=== PATIENT | male | born 1950 | race Caucasian/White ===

== ENCOUNTER 2019-02-15 10:36 | Inpatient (IN) | payer BC, MEDICARE ==
[~2019-02-15] VITALS: Ht 175.3 cm; Wt 97.5 kg
--- OUTSIDE RECORDS SUMMARY | 2019-02-15 10:39 | XMS REPORT | Summary of Care ---
Author Author Yaritza Ness M.A. Organization Unknown Address [facility] Phone Unavailable Care Team Providers Care Oil Tank Car Cleaner Name Role Phone BURT Espana, LOLA Clemons Unavailable Yaritza Ness M.A. Unavailable Unavailable SARAH Espana, SON Unavailable Unavailable BURT SNYDER IN, LOLA Arora Unavailable Unavailable SHER FARRIS IN, BOZENA Arora Unavailable Unavailable Son Smith MD Unavailable Unavailable Unavailable Unavailable Functional Status Name Dates Details Functional status health issues are not documented Status: Name Dates Details Cognitive status health issues are not documented Status: Problems Name Dates Details Need for hepatitis C screening test (V73.89, Z11.59) Status: Active Peripheral edema (782.3, R60.9) Status: Active Colon cancer screening (V76.51, Z12.11) Status: Active Diarrhea (787.91, R19.7) Status: Active Gastroesophageal reflux disease, esophagitis presence not specified (530.81, K21.9) Status: Active Mouth ulcers (528.9, K12.1) Status: Active Vitamin B12 deficiency (266.2, E53.8) Status: Active 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, with long-term current use of insulin (250.42, E11.29) Status: Active Diabetic neuropathy (250.60, E11.40) Status: Active Diabetes mellitus type 2, controlled (250.00, E11.9) Status: Active Essential (primary) hypertension (401.9, I10) Status: Active Hypercholesterolemia (272.0, E78.00) Status: Active Pancreatic insufficiency (577.8, K86.89) Status: Active Abdominal pain (789.00, R10.9) Status: Active Chronic diarrhea of unknown origin (787.91, K52.9) Status: Active Diabetic infection of left foot (250.80, E11.628) Status: Active Cellulitis of foot (682.7, L03.119) Status: Active Medications Name Dates Details Lisinopril 10 MG Oral Tablet TAKE 1 TABLET DAILY. Quantity: 90 LOLA DALLAS M.D. Active Pravastatin Sodium 40 MG Oral Tablet TAKE 1 TABLET BY MOUTH EVERY DAY DIRECTED * Quantity: 90 Refills: 1 LOLA DALLAS M.D. * Start : 30-Nov-2018 Active Pantoprazole Sodium 40 MG Oral Tablet Delayed Release TAKE 1 TABLET DAILY * Quantity: 90 Refills: 1 LOLA DALLAS M.D. Active Gabapentin 100 MG Oral Capsule TAKE 1 CAPSULE EVERY 8 HOURS * Quantity: 270 Refills: 1 LOLA DALLAS M.D. * Start : 10-Jun-2018 Active OneTouch Verio In Vitro Strip USE 1 STRIP 4 TIMES DAILY. * Quantity: 120 Refills: 5 LOLA DALLAS M.D. * Start : 10-Jun-2018 Active OneTouch Delica Lancets Fine 3 times daily- FOR ONE-TOUCH VERIO FLEX * Quantity: 90 Refills: 5 LOLA DALLAS M.D. * Start : 10-Jun-2018 Active hydroCHLOROthiazide 12.5 MG Oral Tablet TAKE 1 TABLET DAILY. * Quantity: 90 Refills: 1 LOLA DALLAS M.D. * Start : 30-Jul-2018 Active Januvia 100 MG Oral Tablet TAKE ONE TABLET BY MOUTH IN THE MORNING * Quantity: 30 Refills: 6 LOLA DALLAS M.D. * Start : 03-Aug-2018 Active BD Pen Needle Short U/F 31G X 8 MM USE 5 A DAY * Quantity: 150 Refills: 2 LOLA DALLAS M.D. * Start : 03-Aug-2018 Active NovoLIN N ReliOn 100 UNIT/ML Subcutaneous Suspension INJECT 40 UNITS IN THE MORNING WITH BREAKFAST AND 40 UNITS AT BEDTIME. * Quantity: 3 Refills: 6 LOLA DALLAS M.D. * Start : 23-Nov-2018 Active 10 ML Vial NovoLIN R ReliOn 100 UNIT/ML Injection Solution INJECT 12 UNITS WITH EACH MEAL. * Quantity: 2 Refills: 6 LOLA DALLAS M.D. * Start : 23-Nov-2018 Active 10 ML Vial BD Insulin Syringe U/F 30G X 1/2" 1 ML USE DIRECTED * Quantity: 150 Refills: 5 LOLA DALLAS M.D. * Start : 23-Nov-2018 Active Creon 65518 UNIT Oral Capsule Delayed Release Particles TAKE 1 CAPSULE 3 TIMES DAILY * Quantity: 90 Refills: 6 SON SMITH M.D. * Start : 28-Dec-2018 Active Colestipol HCl - 1 GM Oral Tablet TAKE 1 TABLET DAILY * Refills: 0 Active Multi-Vitamin TABS TAKE 1 TABLET DAILY. * Refills: 0 Active Clindamycin HCl - 300 MG Oral Capsule Take one capsule three time a day. * Quantity: 30 Refills: 0 LOLA DALLAS M.D. * Start : 11-Feb-2019 End : 21-Feb-2019 Active levoFLOXacin 500 MG Oral Tablet TAKE 1 TABLET DAILY * Quantity: 10 Refills: 0 LOLA DALLAS M.D. * Start : 11-Feb-2019 End : 21-Feb-2019 Active Allergies and Adverse Reactions Name Dates Details Dairy (Allergy) Status: Active Past Medical History Name Dates Details History of hyperlipidemia (V12.29, Z86.39) Status: Resolved History of Lactose intolerance (271.3, E73.9) Status: Resolved History of peripheral neuropathy (V12.49, Z86.69) Status: Resolved History of type 2 diabetes mellitus (V12.29, Z86.39) Status: Resolved Procedures Procedure Dates Details Procedures not documented Immunization Name Dates Details Zoster (Zostavax) on: May-2016 Tdap on: May-2017 Influenza, seasonal, injectable on: 09-Feb-2018 Prevnar 13 Intramuscular Suspension on: 10-Jun-2018 Shingrix 50 MCG Intramuscular Suspension Reconstituted on: 10-Jul-2018 Shingrix 50 MCG Intramuscular Suspension Reconstituted on: 09-Sep-2018 Influenza, seasonal, injectable on: 05-Feb-2019 Family History Name Dates Details Family history of cerebrovascular accident (CVA) (V17.1, Z82.3) Status: Active Name Dates Details Family history of malignant neoplasm of colon (V16.0, Z80.0) Status: Active Family history of type 2 diabetes mellitus (V18.0, Z83.3) Status: Active Family history of hyperlipidemia (V18.19, Z83.438) Status: Active Name Dates Details Family history of alcoholism (V17.0, Z81.1) Status: Active Name Dates Details Family history of lymphoma (V16.7, Z80.7) Status: Active Social History Name Dates Details - Status: Name Dates Details Never smoker Vital Signs Date Test Result Details [id number]-Nis-[id number] BP Systolic 132 mm[Hg] Status: Comments: Location: LUE; Position: Sitting BP Diastolic 64 mm[Hg] Status: Comments: Location: LUE; Position: Sitting Height 69 in Status: Weight 216.8 lb Status: Body Mass Index Calculated 32.02 kg/m2 Status: Body Surface Area Calculated 2.14 m2 Status: Temperature 98.5 f Status: Comments: Method: Oral Heart Rate 76 /min Status: Respiration Rate 16 /min Status: Results Date Description Value Details 9-Nyx-467554:27 XRAY Foot AP lateral 01739 Foot AP lateral SEE NOTES Comments: EXAM: XR LEFT FOOT 2 VIEWSDATE: 02/11/2019 15:27 CDTINDICATION: - L03.119 Cellulitis of unspecified part of limbCOMPARISON: None.TECHNIQUE: AP and lateral radiographs of the footFINDINGS: No acute fracture or malalignment is identified. There is noperiosteal reaction, focal erosion or cortical destruction to indicate thepresence of acute osteomyelitis.Diffuse soft tissue swelling about the fore and midfoot.IMPRESSION: Diffuse soft tissue swelling about the foreign midfoot with noradiographic evidence of acute osteomyelitis. MRI is more sensitive in thisdiagnosis if indicated.--This report was dictated by a Senior Product Development Scientist/Fellow/Physician [employer] Admin. Ihave personallyreviewed the images as well as the interpretation and agree with the findings.Read by: Magan Contreras MD Resident/Fellow/PhysicianAssistant: Magan Contreras MDDictated Date/time: 02/11/19 15:53Electronically Signed by: Chadwick Kendrick MD 02/11/1919:18FINAL REPORT 8-[id number]:05 [[facility]] BASIC METABOLIC PANEL W/EGFR GLUCOSE 131 mg/dl (Normal) Range: 65-139 Comments: Non-fasting reference interval UREA NITROGEN (BUN) 34 mg/dl (Above high threshold) Range: 7-25 CREATININE 1.94 mg/dl (Above high threshold) Range: 0.70-1.25 Comments: For patients >49 years of age, the reference limitfor Creatinine is approximately 13% higher for peopleidentified as -Panamanian. eGFR NON- 35 {ML/MIN/1.7} (Below low threshold) Range: > OR=60 eGFR 40 {ML/MIN/1.7} (Below low threshold) Range: > OR=60 BUN/CREATININE RATIO 18 {CALC} (Normal) Range: 6-22 SODIUM 137 mmol/L (Normal) Range: 135-146 POTASSIUM 4.7 mmol/L (Normal) Range: 3.5-5.3 CHLORIDE 103 mmol/L (Normal) Range: 98-110 CARBON DIOXIDE 25 mmol/L (Normal) Range: 20-32 CALCIUM 8.9 mg/dl (Normal) Range: 8.6-10.3 8-[id number]:05 [[facility]] CBC (INCLUDES DIFF/PLT) Comments: REPORT COMMENT:FASTING:NO WHITE BLOOD CELL COUNT 11.6 {Thousand/u} (Above high threshold) Range: 3.8-10.8 RED BLOOD CELL COUNT 3.31 {Million/uL} (Below low threshold) Range: 4.20-5.80 HEMAGLOBIN 9.8 g/dl (Below low threshold) Range: 13.2-17.1 HEMATOCRIT 28.4 % (Below low threshold) Range: 38.5-50.0 MCV 85.8 fL (Normal) Range: 80.0-100.0 MCH 29.6 pg (Normal) Range: 27.0-33.0 MCHC 34.5 g/dl (Normal) Range: 32.0-36.0 RDW 12.7 % (Normal) Range: 11.0-15.0 PLATELET COUNT 335 {Thousand/u} (Normal) Range: 140-400 MPV 10.1 fL (Normal) Range: 7.5-12.5 ABSOLUTE NEUTROPHILS 8155 {cells/uL} (Above high threshold) Range: 3224-5826 ABSOLUTE LYMPHOCYTES 2216 {cells/uL} (Normal) Range: 850-3900 ABSOLUTE MONOCYTES 1056 {cells/uL} (Above high threshold) Range: 200-950 ABSOLUTE EOSINOPHILS 116 {cells/uL} (Normal) Range: 15-500 ABSOLUTE BASOPHILS 58 {cells/uL} (Normal) Range: 0-200 NEUTROPHILS 70.3 % (Normal) LYMPHOCYTES 19.1 % (Normal) MONOCYTES 9.1 % (Normal) EOSINOPHILS 1.0 % (Normal) BASOPHILS 0.5 % (Normal) Plan of Care Name Dates Details Planned Observations Planned Goals not documented Planned Encounters Appointment; LOLA DALLAS M.D. On: 19-Feb-2019 13:15 Appointment; SON SMITH M.D. On: 02-Mar-2019 16:15 Appointment; LOLA DALLAS M.D. On: 05-Mar-2019 9:30 Instructions Name Dates Details Instructions not documented Encounters Appointment; LOLA DALLAS M.D. Encounter Diagnosis: Problem not documented On: 10-Jun-2018 9:30 Appointment; LOLA DALLAS M.D. Encounter Diagnosis: Problem not documented On: 30-Jul-2018 11:00 Appointment; LOLA DALLAS M.D. Encounter Diagnosis: Problem not documented On: 03-Aug-2018 10:30 Appointment; LOLA DALLAS M.D. Encounter Diagnosis: Problem not documented On: 17-Aug-2018 14:30 Appointment; BOZENA OLIVAREZ RD Encounter Diagnosis: Problem not documented On: 24-Aug-2018 13:00 Appointment; LOLA DALLAS M.D. Encounter Diagnosis: Problem not documented On: 01-Sep-2018 10:30 Appointment; SON SMITH M.D. Encounter Diagnosis: Problem not documented On: 15-Sep-2018 15:00 Appointment; SON SMITH M.D. Encounter Diagnosis: Problem not documented On: 12-Oct-2018 14:00 Appointment; BOZENA OLIVAREZ RD Encounter Diagnosis: Problem not documented On: 19-Oct-2018 13:00 Appointment; SON SMITH M.D. Encounter Diagnosis: Problem not documented On: 16-Nov-2018 15:15 Appointment; LOLA DALLAS M.D. Encounter Diagnosis: Problem not documented On: 23-Nov-2018 14:15 Appointment; SON SMITH M.D. Encounter Diagnosis: Problem not documented On: 30-Nov-2018 10:00 Appointment; SON SMITH M.D. Encounter Diagnosis: Problem not documented On: 28-Dec-2018 10:30 Appointment; LOLA DALLAS M.D. Encounter Diagnosis: Problem not documented On: 05-Jan-2019 13:15 Appointment; LOLA DALLAS M.D. Encounter Diagnosis: Problem not documented On: 11-Feb-2019 14:00
[2019-02-15] MEDS ORDERED: SODIUM CHLORIDE 0.9% 1000ML 1,000 ML IV STA (10:44)
[2019-02-15] MEDS ORDERED: CEFEPIME 1GM/NS 0.9% 50 ML 50 ML IV ONE (11:00)
--- NOTE | 2019-02-15 11:19 | Diagnostic Imaging Report ---
EXAMINATION: CHEST SINGLE (PORTABLE) INDICATION: Cellulitis COMPARISON: None FINDINGS: LINES/TUBES:EKG leads overlie the chest. LUNGS:The lungs are well-inflated. No focal consolidation or pulmonary edema. PLEURA:No pleural effusion or pneumothorax. MEDIASTINUM:The cardiomediastinal silhouette is at the upper limits of normal for size. BONES/SOFT TISSUES:No acute osseous injury. ABDOMEN:No free air under the diaphragm. IMPRESSION: No focal pneumonia or pulmonary edema. Signed by: Hector Chan MD on 02/15/2019 11:16 AM
[2019-02-15 11:29] LABS: BASOPHILS % 0.2 % (0.0-1.0); EOSINOPHILS # (AUTO) 0.1 (0.0-0.4); EOSINOPHILS % 0.6 % (0.0-6.0); HEMATOCRIT 27.9 % (38.2-49.6); HEMOGLOBIN 9.3 g/dL (14.0-18.0); LYMPHOCYTES % 20.9 % (18.0-39.1); MEAN CORPUSCULAR HEMOGLOBIN 29.1 pg (28-32); MEAN CORPUSCULAR HGB CONC 33.3 g/dL (31-35); MEAN CORPUSCULAR VOLUME 87.2 fL (81-99); MONOCYTES # (AUTO) 0.9 (0.2-0.8); MONOCYTES % 9.2 % (4.4-11.3); NEUTROPHILS # (AUTO) 6.7 (2.1-6.9); NEUTROPHILS % 68.6 % (38.7-80.0); PLATELET COUNT 368 x10e3/uL (140-360)
[2019-02-15] MEDS ORDERED: VANCOMYCIN 1GM/NS 250 ML 250 ML IV ONE (11:30)
--- NOTE | 2019-02-15 11:32 | Diagnostic Imaging Report ---
EXAMINATION: FOOT LEFT COMPLETE INDICATION: Cellulitis COMPARISON: None FINDINGS: AP, lateral and oblique radiographs of the left foot were obtained. No acute fracture or dislocation. Alignment is anatomic. There is a 8 mm linear radiopaque structure in the plantar soft tissues of the forefoot concerning for possible foreign body. There is associated mild soft tissue swelling. IMPRESSION: No acute osseous injury. 8 mm linear radiopaque structure in the forefoot plantar soft tissues with associated soft tissue swelling is concerning for foreign body. Signed by: Hector Chan MD on 02/15/2019 11:29 AM
[2019-02-15 11:40] LABS: INR 1.07; PARTIAL THROMBOPLASTIN TIME 34.4 seconds (23.8-35.5); PROTHROMBIN TIME 14.4 seconds (11.9-14.5)
[2019-02-15 11:47] LABS: ALANINE AMINOTRANSFERASE 13 IU/L (0-55); ALBUMIN 2.9 g/dL (3.5-5.0); ALBUMIN/GLOBULIN RATIO 0.7 (0.8-2.0); ALKALINE PHOSPHATASE 66 IU/L (40-150); ANION GAP 15.2 mmol/L (8-16); BLOOD UREA NITROGEN 36 mg/dL (7-26); BUN/CREATININE RATIO 15 (6-25); CALCIUM 8.8 mg/dL (8.4-10.2); CARBON DIOXIDE 22 mmol/L (22-29); CHLORIDE 98 mmol/L (98-107); CREATINE KINASE 398 IU/L (30-200); CREATININE, SERUM 2.41 mg/dL (0.72-1.25); EST GLOMERULAR FILTRATION RATE 27 ML/MIN (60-); GLUCOSE 146 mg/dL (74-118); POTASSIUM 4.2 mmol/L (3.5-5.1); SODIUM 131 mmol/L (136-145)
[2019-02-15 12:04] LABS: B-TYPE NATRIURETIC PEPTIDE2 41.9 pg/mL (0-100)
[2019-02-15 12:27] LABS: BILIRUBIN,URINE NEGATIVE (NEGATIVE); CLARITY,URINE CLEAR (CLEAR); COLOR,URINE YELLOW (YELLOW); KETONES,URINE NEGATIVE (NEGATIVE); LEUKOCYTE ESTERASE ,URINE NEGATIVE (NEGATIVE); NITRITE,URINE NEGATIVE (NEGATIVE); PROTEIN,URINE DIPSTICK NEGATIVE (NEGATIVE); URINE UROBILINOGEN 0.2 mg/dL (0.2 - 1)
[2019-02-15] MEDS ORDERED: MORPHINE SULFATE INJ 4 MG/ML INJ 1ML IV PRN (12:45)
[2019-02-15] MEDS ORDERED: ONDANSETRON HCL INJ 2MG/ML 2ML 2 MG/ML VIAL IV PRN (12:45)
[2019-02-15] MEDS ORDERED: ASPIRIN 81 MG CHEW TAB PO ONE (12:45)
[2019-02-15 12:55] LABS: BACTERIA,URINE FEW /HPF; EPITHELIAL CELLS,URINE FEW /LPF
--- OUTSIDE RECORDS SUMMARY | 2019-02-15 12:57 | XMS REPORT ---
Author Author [facility] Address Unknown Phone Unavailable Care Team Providers Care Bar Porter Name Role Phone Krunal SMITH Unavailable Unavailable Problems This patient has no known problems. Allergies, Adverse Reactions, Alerts This patient has no known allergies or adverse reactions. Medications This patient has no known medications. Results Test Description Test Time Test Comments Text Results Atomic Results Result Comments FOOT LEFT COMPLETE 2019-02-15 11:25:00 [place] [address] Patient Name: KADEEM WOOTEN MR #: [id number] : 1950 Age/Sex: 68/M Req #: [id number] [facility] Physician: Ordered by: JEFF JAY NP Report #: [id number] Location: ER Room/Bed: Procedure: [id number] DX/FOOT LEFT COMPLETE Exam Date: 02/15/19 Exam Time: 1056 REPORT STATUS: Signed EXAMINATION: FOOT LEFT COMPLETE INDICATION: Cellu litis COMPARISON: None FINDINGS: AP, lateral and oblique radiographs of the left foot were obtained. No acute fracture or dislocation. Alignment is anatomic. There is a 8 mm linear radiopaque structure in the plantar soft tissues of the forefoot concerning for possible foreign body. There is associated mild soft tissue swelling. IMPRESSION: No acute osseous injury. 8 mm linear radiopaque structure in the forefoot plantar soft tissues with associated soft tissue swelling is concerning for foreign body. Signed by: Darren Chan MD on 02/15/2019 11:29 AM Dictated By: DARREN CHAN MD 28 Transcribed By: JOSE on 02/15/191128 COPY TO: JEFF JAY NP CHEST SINGLE (PORTABLE) 2019-02-15 11:15:00 [place] [address] Patient Name: KADEEM WOOTEN MR #: [id number] : 1950 Age/Sex: 68/M Req #: [id number] Adm Physician: Ordered by: JEFF JAY NP Report #: [id number] Location: ER Room/Bed: Procedure: [id number] DX/CHEST SINGLE (PORTABLE) Exam Date: 02/15/19 Exam Time: 1056 REPORT STATUS: Signed EXAMINATION: CHEST SINGLE (PORTABLE) INDICAT ION: Cellulitis COMPARISON: None FINDINGS: LINES/TUBES:EKG leads overlie the chest. LUNGS:The lungs are well-inflated. No focal consolidation or pulmonary edema. PLEURA:No pleural effusion or pneumothorax. MEDIASTINUM:The cardiomediastinal silhouette is at the upper limits of normal for size. BONES/SOFT TISSUES:No acute osseous injury. ABDOMEN:No free air under the diaphragm. IMPRESSION: No focal pneumonia or pulmonary edema. Signed by: Darren Chan MD on 02/15/2019 11:16 AM Dictated By: DARREN CHAN MD Transcribed By: JOSE on 02/15/191115 COPY TO: JEFF JAY NP
[2019-02-15] MEDS: SODIUM CHLORIDE 0.9% 1000ML 1,000 ML IV SCH (13:25)
--- NOTE | 2019-02-15 14:44 | NUR ---
Received patient via wheelchair from ER. AAOX4 to time, person, place, situation. Respirations even and unlabored. Red discoloration noted to LLE. Oriented patient to room. Instructed to use call light for assistance. Voiced understanding.
[2019-02-15] MEDS ORDERED: CREON DR 12,001 EACH PO (15:14)
[2019-02-15] MEDS ORDERED: COLESTIPOL HCL1 GM PO (15:14)
[2019-02-15] MEDS ORDERED: PANTOPRAZOLE SO40 MG PO (15:14)
[2019-02-15] MEDS ORDERED: NOVOLIN N100 UNIT/1 SQ ×2 (15:14)
[2019-02-15] MEDS ORDERED: GABAPENTIN100 MG PO (15:14)
[2019-02-15] MEDS ORDERED: PRAVASTATIN SOD40 MG PO (15:14)
[2019-02-15] MEDS ORDERED: MULTI-VITAMIN1 EACH PO (15:14)
[2019-02-15] MEDS ORDERED: JANUVIA100 MG PO (15:14)
[2019-02-15] MEDS ORDERED: HYDROCHLOROTHIA25 MG PO (15:14)
[2019-02-15] MEDS ORDERED: LISINOPRIL10 MG PO (15:14)
[2019-02-15 15:38] VITALS: BP 140/71
[2019-02-15 15:59] VITALS: BP 140/71
[2019-02-15] MEDS ORDERED: LEVEMIR100 UNIT/1 SQ (17:29)
[2019-02-15] MEDS ORDERED: CEFEPIME HCL 1 GM VIAL IV SCH (19:00)
[2019-02-15 19:09] LABS: CREATINE KINASE 372 IU/L (30-200)
--- NOTE | 2019-02-15 19:15 | NUR ---
Report given to oncoming nurse of patient's status. Resting in bed, side rails upx2 , call light within reach, at bedside. AAOX4 to time, person place, situation. Respirations even and unlabored.
--- NOTE | 2019-02-15 19:20 | NUR ---
Bedside rounds completed with morning nurse. Pt alert and oriented to name. Lying in bed HOB 45 degrees. Denies pain at this time. Family at bedside. Call light within reach. Will continue to monitor.
[2019-02-15 20:00] VITALS: BP 143/60
[2019-02-15 21:00] VITALS: BP 143/60
[2019-02-15] MEDS ORDERED: NON-FORMULARY MEDICATION (Insulin Detemir (Levemir) 40 UNITS) SQ SCH (21:00)
[2019-02-15] MEDS: GABAPENTIN 100 MG CAP PO SCH (22:00)
[2019-02-15] MEDS: INSULIN GLARGINE 100 UNITS/ML VIAL SQ SCH (22:00)
[2019-02-15] MEDS: CEFEPIME 1GM/NS 0.9% 50 ML 50 ML IV SCH (23:00)
--- NOTE | 2019-02-15 23:55 | Consultation ---
DATE OF CONSULTATION: REASON FOR CONSULTATION: Infection of the foot, osteomyelitis. HISTORY OF PRESENT ILLNESS: This patient is a very pleasant 68-year-old white male with history of diabetes mellitus, history of neuropathy. Couple of weeks ago, he stepped on something in the house and he does not know what. He went to see his physician, Dr. Love, who gave him 2 oral antibiotics. An x-ray was done that showed there was no foreign body, but the foot got progressively worse. He was told to come back to the office if the foot became red and swollen, so he was admitted. No fever, no chills, and no pain, but the foot was quite red and swollen with edema. The patient is being admitted and I am asked to see him. An x-ray done here showed there is a foreign body of 8 mm. REVIEW OF SYSTEMS: HEENT: Negative. PULMONARY: Negative. CARDIAC: Negative. GI: Negative. Other unremarkable. LABORATORY DATA: Sodium 131, potassium 4.2, creatinine 2.4, glucose 146. Liver enzyme within normal limit. His white count is 9.7, hemoglobin is 9.3. MEDICATION LIST: He is currently on aspirin. He received one dose of vancomycin and he is on lisinopril and Neurontin. He is on cefepime 1 g q.12h and vancomycin 1 g daily. PHYSICAL EXAMINATION: GENERAL: He is currently alert, oriented, does not seem to be in acute distress. VITAL SIGNS: Stable, currently afebrile. HEENT: He is not icteric. NECK: Supple. CHEST: Clear bilateral. HEART: S1, S2. No S3, S4, or murmur. ABDOMEN: Soft. Bowel sounds present. No tenderness. EXTREMITIES: No edema. On the foot, there is erythema. There is edema. The pulse is strong. IMPRESSION: 1. Cellulitis of the foot, failing antibiotic, concerned about osteomyelitis. 2. Foreign body. 3. Diabetes from neuropathy. 4. Chronic kidney disease, probably underlying acute tubular necrosis. 5. Neuropathy. 6. From Infectious Disease point of view, I recommend to obtain an MRI and Podiatry consultation. Keep the foot elevated. I agree with vancomycin 1 g daily, cefepime 1 g q.12h. Obtain a sedimentation rate and C-reactive protein. Follow up with vancomycin trough every 3rd dose. Would need a central line for IV antibiotic. 7. Depending on the MRI and the duration of antibiotic, may need an extended course of therapy. We will follow. MD MALIKA Alvarez/ADRIEL /[id number]
[2019-02-16] VITALS (8 sets, daily range): BP systolic 123–158; BP diastolic 58–80
[2019-02-16 05:33] LABS: BASOPHILS % 0.5 % (0.0-1.0); EOSINOPHILS # (AUTO) 0.2 (0.0-0.4); HEMATOCRIT 25.4 % (38.2-49.6); HEMOGLOBIN 8.4 g/dL (14.0-18.0); LYMPHOCYTES # (AUTO) 2.4 (1.0-3.2); LYMPHOCYTES % 32.5 % (18.0-39.1); MEAN CORPUSCULAR HEMOGLOBIN 29.1 pg (28-32); MEAN CORPUSCULAR HGB CONC 33.1 g/dL (31-35); MEAN CORPUSCULAR VOLUME 87.9 fL (81-99); MONOCYTES # (AUTO) 0.7 (0.2-0.8); MONOCYTES % 10.1 % (4.4-11.3); NEUTROPHILS # (AUTO) 3.9 (2.1-6.9); NEUTROPHILS % 53.2 % (38.7-80.0); PLATELET COUNT 328 x10e3/uL (140-360); RED BLOOD COUNT 2.89 x10e6/uL (4.3-5.7)
[2019-02-16 05:50] LABS: ANION GAP 11.4 mmol/L (8-16); CALCIUM 8.2 mg/dL (8.4-10.2); CREATININE, SERUM 2.02 mg/dL (0.72-1.25); POTASSIUM 4.4 mmol/L (3.5-5.1)
[2019-02-16] MEDS: GABAPENTIN 100 MG CAP PO SCH ×3 (06:00→22:00)
[2019-02-16] MEDS: SODIUM CHLORIDE 0.9% 1000ML 1,000 ML IV SCH (06:00)
[2019-02-16] MEDS: VANCOMYCIN 1GM/NS 250 ML 250 ML IV SCH (06:00)
[2019-02-16 06:09] LABS: CREATINE KINASE 410 IU/L (30-200)
--- NOTE | 2019-02-16 06:30 | NUR ---
Patient lying quietly in bed. Denies pain at this time. No acute distress noted. Call day within reach.
--- NOTE | 2019-02-16 06:37 | Diagnostic Imaging Report ---
EXAMINATION: CHEST SINGLE (PORTABLE) INDICATION: Shortness of breath. COMPARISON: 02/15/2019. FINDINGS: LINES/TUBES:None. LUNGS:The lungs are well-inflated. No focal consolidation or pulmonary edema. PLEURA:No pleural effusion or pneumothorax. MEDIASTINUM:The cardiomediastinal silhouette is mildly enlarged. Mild prominence of the central pulmonary vasculature. BONES/SOFT TISSUES:No acute osseous injury. ABDOMEN:No free air under the diaphragm. IMPRESSION: Possible mild pulmonary venous congestion. Signed by: Dr. Kaci Stallings M.D. on 02/16/2019 6:34 AM
[2019-02-16] MEDS ORDERED: SODIUM CHLORIDE FLUSH 10 ML SYR INJ PRN (08:45)
[2019-02-16] MEDS ORDERED: NON-FORMULARY MEDICATION (Pravastatin Sodium 40 MG) PO SCH (09:00)
[2019-02-16] MEDS: LISINOPRIL 10 MG TAB PO SCH (09:01)
[2019-02-16] MEDS: PANTOPRAZOLE SOD 40 MG TABEC PO SCH (09:01)
[2019-02-16] MEDS: MULTIVITAMINS/MINERALS TAB PO SCH (09:01)
[2019-02-16] MEDS: COLESTIPOL HCL 1 G TAB PO SCH (09:01)
[2019-02-16] MEDS: HYDROCHLOROTHIAZIDE 25 MG TAB PO SCH (09:01)
[2019-02-16] MEDS: SITAGLIPTIN 100 MG TAB PO SCH (09:01)
[2019-02-16] MEDS: PRAVASTATIN 20 MG TAB PO SCH (09:01)
--- NOTE | 2019-02-16 12:00 | Diagnostic Imaging Report ---
MRI of the left forefoot without contrast. History: Cellulitis. Trauma. Swelling. Decreased range of motion. Technique: Multiplanar multisequence MRI of the foot without contrast Comparison: 02/15/2019 Findings: Soft tissue defect with questionable foreign body at the plantar aspect of the foot at the level of the proximal third toe best seen on sagittal series 7 image 14 and series 2 image 17. There is adjacent abnormal skin thickening and soft tissue edema consistent with cellulitis. No well-formed drainable fluid collection/abscess is seen. There is what appears to be skin blistering on sagittal series 4 image 13 at the plantar aspect of the foot. Additionally, there is abnormal bone marrow edema in the proximal third and fourth toes worrisome for osteomyelitis. Diffuse soft tissue edema about the foot dorsally also could be due to cellulitis. No acute fracture, dislocation or evidence of avascular necrosis. No ligamentous or tendon tear is seen. Diffuse muscle atrophy. Impression: Soft tissue defect with questionable foreign body at the plantar aspect of the foot at the level of the proximal third toe. There is adjacent abnormal skin thickening and soft tissue edema consistent with cellulitis. No well-formed drainable fluid collection/abscess is seen. Abnormal bone marrow edema in the proximal third and fourth toes worrisome for osteomyelitis Signed by: Dr. Celio Hedrick M.D. on 02/16/2019 11:57 AM
[2019-02-16] MEDS: CEFEPIME 1GM/NS 0.9% 50 ML 50 ML IV SCH ×2 (12:35→22:00)
--- NOTE | 2019-02-16 15:15 | NUR ---
Visit made by the Spiritual Care Department Pastoral Visitor, Jovana Subramanian. PV provided pastoral presence, hospitality, and supportive listening. Pastoral Visitor informed pt/family of the scope of [employer] and availability. COREY CODY [employer] Spiritual Care Department O: [phone] Pager: [phone] ([phone] calling from)
--- NOTE | 2019-02-16 16:27 | NUR ---
WOUNDCARE CONSULT 68 YO MALE HX DIBETIC ,NEUROPATHY BEING SEEN FOR FOREIGN BODY LFT PLANTAR FOOT ASSESSMENT : .2 CM X .8CM WOUND NOTED TO PLANTAR ASPECT OF LFT FOOT WOUND DEPTH WAS NOT PROBED TO NOT LODGE FOREIGN MATTER FURTHER IN WOUND BED . UPON CLEANING WOUND SURFACE WITH GUASE AND SALINE A PIECE OF GLASS IS DISLODGED AND REMOVED SHARD OF GLASS PLACED IN PLASTIC CUP AT BEDSIDE NURSE NOTIFIED WELL DR GUZMAN'S NURSE KAUR WHO REPORTS HE WILL BE VISITING PATIENT IN ONE HR. NURSING IS TO NOTIFY WOUNDCARE OF ANY NEW ORDERS POST MD VISIT. WOUNDCARE TO FOLLOW UP WITH PATIENT PROGRESS Addendum: 02/16/19 at 1641 by Bg Paniagua RN Amended: Links added.
--- NOTE | 2019-02-16 17:22 | Consultation ---
DATE OF CONSULTATION: 02/16/2019 REQUESTING PHYSICIAN: Scot Love MD REASONS FOR CONSULTATION: Chronic kidney disease. Thank you for allowing us to participate in Mr. Mireles's care. HISTORY OF PRESENT ILLNESS: There is a 68-year-old male, on IV antibiotics. He apparently had a cut at home. He does have neuropathy, did not have much pain. Initially, x-ray was done, antibiotics were started, when it was felt that it was getting infected. The cut was on the left foot, it has progressively gotten worse, there has been more swelling. He has been admitted for IV treatment because of failure of outpatient medications. He has known chronic kidney disease. Apparently, the x-ray is not showing an 8 mm foreign body for which further imaging is planned. Creatinine is 2.2. Estimated GFR 33 mL/minute, it was 2.4 yesterday. He has no known retinopathy, but he has neuropathy, does have cataract surgery about 5 years ago, so he would have been 63 at that time. He is maintained on low-dose lisinopril and thiazide. No chronic NSAID use. PAST HISTORY: Type 2 diabetes, hypertension, neuropathy, cataract surgery, CKD, presumed diabetic end-organ damage. MEDICATIONS: Cefepime 1 g daily, normal saline, which has been stopped; vancomycin 1 g daily, aspirin 81 mg a day, colestipol, gabapentin 100 mg t.i.d., hydrochlorothiazide 12.5 mg daily, insulin glargine 40 units HS, morphine p.r.n., lisinopril 10 mg a day, pravastatin 40 mg a day, and sitagliptin 100 mg daily. SOCIAL HISTORY: Does not abuse alcohol or smoke at this time. FAMILY HISTORY: Hypertension. REVIEW OF SYSTEMS: CONSTITUTIONAL: No fever or chills. SKIN: Foot is red. VASCULAR: Feet swelling. CARDIAC: Denying angina or syncope. NEURO: Denying headaches, seizures, decreased sensation in the extremities. Rest of review is negative. PHYSICAL EXAMINATION: GENERAL: Sitting up, no distress. VITAL SIGNS: Temperature 98, blood pressure 154/76, and pulse 72. HEENT: Atraumatic. NECK: No JVD. CHEST: Clear bilateral breath sounds equal. ABDOMEN: Soft. EXTREMITIES: 1+ edema. Left leg slightly larger. Left foot is erythematous. NEUROLOGIC: Alert, appropriate. Speech is normal. Fine sensory testing is not done. LABORATORY DATA: Creatinine came down from 2.4 to 2.0. Potassium 4.4. Serum CPK is 410. Hemoglobin is 8.4, white count 7.32, and platelets 328. UA, negative for protein and dipstick. ASSESSMENT: 1. Acute kidney injury, presumed acute tubular necrosis. 2. He does appear to have some fluid overload on the chest x-ray. 3. History of chronic kidney disease, probably stage 3, likely from nephrosclerosis, diabetic end-organ damages, although the lack of significant proteinuria on dipstick suggests nephrosclerosis as being a major cause. 4. Foreign body apparently in the left foot with now infection after trauma. 5. History of other diabetic end-organ damage, namely neuropathy. PLAN: 1. Low salt intake. 2. Agree with stopping IV fluids. 3. Ongoing antibiotic treatment. If he is on vancomycin, please check levels. 4. Avoid NSAIDs and other nephrotoxins. Thank you for allowing us to participate in Mr. Mireles's care. MD EDUARDA DelacruzK/MODL /[id number]
--- NOTE | 2019-02-16 17:26 | NUR ---
Dr.Cuza Lorenzo aware MRI results. See orders
[2019-02-16] MEDS ORDERED: LIDOCAINE HCL 2% 2 ML AMP INJ ONE (17:30)
[2019-02-16] MEDS ORDERED: LIDOCAINE HCL 2% LOCAL 20 ML VIAL INJ ONE (18:00)
--- NOTE | 2019-02-16 18:21 | Diagnostic Imaging Report ---
Exam: Left foot 3 views History: Pain, cellulitis Comparison: None. Findings: No fracture or malalignment. Joint spaces preserved. No abnormal soft tissue calcification or soft tissue defect. Impression: No acute osseous abnormality Signed by: Dr. Mil Gracia M.D. on 02/16/2019 6:17 PM
--- NOTE | 2019-02-16 18:37 | NUR ---
Resting in bed semi fowlers position, side rails upx2, call light within reach. No s/s of acute distress noted. Report to be given to oncoming nurse of patient's status.
[2019-02-16] MEDS: INSULIN GLARGINE 100 UNITS/ML VIAL SQ SCH (21:00)
[2019-02-17] VITALS (9 sets, daily range): BP systolic 120–148; BP diastolic 61–78
--- NOTE | 2019-02-17 00:48 | Consultation ---
DATE OF CONSULTATION: 02/16/2019 Consultation Report REASON FOR CONSULTATION: Deep foreign body with cellulitis left foot with the patient being an insulin-dependent diabetic. HISTORY OF PRESENT ILLNESS: This is a pleasant 68-year-old white male, who was seen at bedside, who relates that he was stepped on a piece of foreign body two weeks ago. He was seen by Dr. Love, was given oral antibiotics, did not get any better, so it was decided to put him in the hospital for IV antibiotics. He was then found to have a deep foreign body to the plantar aspect of the left foot that came out while wound care was cleaned the wound on the bottom of his left foot. PAST MEDICAL HISTORY: Remarkable for insulin-dependent diabetes, hypertension, and hypercholesteremia. ALLERGIES: THE PATIENT DENIES. SOCIAL HISTORY: Denies any smoking, drinking, or recreational drug use. He is retired. FAMILY HISTORY: Noncontributory. CURRENT MEDICATIONS: Note listed in the chart including IV Cefepime and vancomycin. REVIEW OF SYSTEMS: CARDIAC: Denies any palpitations or arrhythmias. RESPIRATORY: Denies any shortness of breath or productive cough. GASTROINTESTINAL: Denies any diarrhea or constipation. GENITOURINARY: Denies any hematuria or problems voiding. PHYSICAL EXAMINATION: VITAL SIGNS: Afebrile, pulse rate 70, respirations 18, blood pressure 150/80, O2 saturation 98%. Podiatric physical examination reveals the following VASCULATURE: Pedal pulses of both the DP and PT are palpable. NEUROLOGICAL: Seems to be diminished when utilizing [place] 5% monofilament wire. Muscle mass is asymmetrical, some swelling noted to the left lower extremity compared to the right with an ulceration plantar aspect left foot/puncture site with cellulitis up to the ankle area laterally dorsally and also plantarly with possible abscess formation. LABORATORY DATA: Noted as a white blood cell count of 7.32, hemoglobin 8.4 with a platelet count of 328. ASSESSMENT: Possible abscess left foot, cellulitis with edema and neuropathy. PLAN: X-rays, three views, left foot x-rays will be ordered to compare the previous x-rays taken make sure all foreign body till now and see if there is any deep pockets or gas in the tissue. Tomorrow, the patient's ulceration will be debrided. Abscess will be I and D. At bedside, we will continue IV antibiotics. We will start diluted wet-to-dry Betadine to the foot b.i.d. YANI Pedraza/ADRIEL /[id number]
[2019-02-17] MEDS: VANCOMYCIN 1GM/NS 250 ML 250 ML IV SCH (05:27)
[2019-02-17] MEDS: GABAPENTIN 100 MG CAP PO SCH ×3 (05:27→20:58)
[2019-02-17 05:38] LABS: ANION GAP 11.5 mmol/L (8-16); CALCIUM 8.4 mg/dL (8.4-10.2); CREATININE, SERUM 1.79 mg/dL (0.72-1.25); MAGNESIUM 2.3 MG/DL (1.3-2.1); PHOSPHORUS 3.6 MG/DL (2.3-4.7); POTASSIUM 4.5 mmol/L (3.5-5.1)
[2019-02-17 06:16] LABS: FERRITIN 148.65 ng/mL (21.81-274.66)
[2019-02-17] MEDS ORDERED: LIDOCAINE HCL 2% LOCAL 20 ML VIAL INJ SCH (06:30)
[2019-02-17] MEDS: COLESTIPOL HCL 1 G TAB PO SCH (08:39)
[2019-02-17] MEDS: SITAGLIPTIN 100 MG TAB PO SCH (08:39)
[2019-02-17] MEDS: PANTOPRAZOLE SOD 40 MG TABEC PO SCH (08:39)
[2019-02-17] MEDS: PRAVASTATIN 20 MG TAB PO SCH (08:39)
[2019-02-17] MEDS: HYDROCHLOROTHIAZIDE 25 MG TAB PO SCH (08:39)
[2019-02-17] MEDS: MULTIVITAMINS/MINERALS TAB PO SCH (08:39)
[2019-02-17] MEDS: LISINOPRIL 10 MG TAB PO SCH (08:40)
--- NOTE | 2019-02-17 11:11 | NUR ---
Received order for [facility] eval. CM spoke to pt at bedside. He states that he prefers to do IV abx at home. States he would not mind driving to a doctor's office to get IV abx either. 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 Would prefer not to go to LTAC. Message left for HARDIK Handley regarding pt's decision.
--- NOTE | 2019-02-17 11:24 | Diagnostic Imaging Report ---
EXAM: Renal Ultrasound INDICATION: ^ckd ^[id number] ^[id number] COMPARISON: None TECHNIQUE: Transverse and longitudinal images of the kidneys and bladder were obtained. FINDINGS: Right Kidney: Length: 13.2 cm Appearance: Normal echogenicity. Collecting system: No hydronephrosis Stones: None Cyst/Mass: None Left Kidney: Length: 12.1 cm Appearance: Normal echogenicity. Collecting system: No hydronephrosis Stones: None Cyst/Mass: None Bladder: No mass or calculi. Bilateral ureteral jets seen. Prevoid volume estimate of 111.2 cc. IMPRESSION: No renal calculi or hydronephrosis. Signed by: Hector Chan MD on 02/17/2019 11:20 AM
[2019-02-17] MEDS ORDERED: ONDANSETRON HCL 4 MG ORAL DISINTEGRATING TAB PO PRN (11:45)
--- NOTE | 2019-02-17 12:21 | Progress Note ---
DATE: 02/17/2019 Nephrology followup. SUBJECTIVE: Feels okay. Had his foot debrided. Piece of glass was removed. He is on IV antibiotics and concern for osteomyelitis. Arrangements are being done by Infectious Disease Service for long-term antibiotics. Iron stores are somewhat low. He is anemic, partly from the CKD and partly from the low iron levels. Chest x-ray was noted to show mild fluid overload. OBJECTIVE: VITAL SIGNS: Temperature 98.3, pulse 67, and blood pressure 146/72. CHEST: Clear. EXTREMITIES: Trace to 1+ edema. Left foot and bandaged. ABDOMEN: Benign. CARDIAC: Normal heart tones. Rhythm sounds regular. LABORATORY DATA: Hemoglobin 8.4, white count 7.3, and platelets of 328. UA showing minimal proteinuria perhaps in 200 mg/g of creatinine range. Protein electrophoresis is pending. Sodium is slightly low at 135 consistent with a history of fluid overload on x-ray. Creatinine 1.8, estimated GFR 38, BUN 28, serum CO2 of 23, magnesium is 2.3, uric acid is quite high at 8.6. ASSESSMENT: 1. Acute tubular necrosis, improved. CKD stage III. 2. Diabetic hypertensive end-organ damage. 3. Line fluid overload. 4. Mild hyponatremia. 5. Anemia with somewhat low iron stores, but suspect the anemia is multifactorial. PLAN: 1. Add p.o. iron. Will defer GI testing to Dr. Love if needed. 2. Discontinue hydrochlorothiazide as sodium is dropping and he still had some apparent fluid overload. 3. Start Lasix 20 mg p.o. daily. 4. Keep salt and water restricted. 5. Stay on low-dose lisinopril. 6. Avoid NSAIDs and other nephrotoxins. 7. We will follow along. 8. Once he is out of this episode, we can consider starting low-dose allopurinol. MD LEANA Delacruz/ADRIEL /[id number]
[2019-02-17] MEDS: CEFEPIME 1GM/NS 0.9% 50 ML 50 ML IV SCH ×2 (12:29→22:53)
--- NOTE | 2019-02-17 13:19 | NUR ---
Left message for Dr. Colunga regarding pt's request for home IV abx. Awaiting response.
--- NOTE | 2019-02-17 14:37 | Progress Note ---
DATE: 02/17/2019 SUBJECTIVE: The patient seen at bedside, doing somewhat better. Denies any history of fever, chills, nausea, or vomiting. OBJECTIVE: VITAL SIGNS: Afebrile, pulse rate 71, respirations 18, blood pressure 136/71, and O2 saturation 99%. EXTREMITIES: Cellulitis to the dorsal aspect of the left lower extremity looking just a little bit better. Still has a lot of swelling to the left lower extremity. Has a puncture lesion to the plantar aspect of left foot measuring 1.5 cm in diameter. Possible pus pocket deep to the second and third interspaces. X-rays were negative for any type of foreign body when compared to the previous x-rays after the foreign body was scrubbed off by the Wound Care nurse. Sharp excisional debridement of the ulcer was carried down to muscle. Devitalized tissue was sharply excised. A curved hemostat was introduced deep into the metatarsophalangeal joint and opened up. Some serosanguinous fluid was extracted. Sterile dressing was then applied with diluted wet-to-dry Betadine. We will continue to monitor foot. Continue IV antibiotics. ASSESSMENT: Deep space infection/abscess with a grade 3 ulcer. PLAN: Continue local wound care and IV antibiotics and offloading. We will continue to monitor. YANI Pedraza/ADRIEL /[id number]
--- NOTE | 2019-02-17 15:31 | NUR ---
Spoke with Dr. Colunga, who gave home IV abx order. Order placed in EMR. Dr. Colunga's office is out of network, will cost pt $300/week x 2 weeks. He spoke with pt and informed him of cost. Pt would like see how much it would cost thru an infusion company. Choice letter signed for Karen and placed in chart. Pt states he is fine with [facility] setting up home health thru any company that is in network with his insurance. Referral was faxed to [facility] at [phone]. Inés Blas with [facility] was notified of referral.
--- NOTE | 2019-02-17 16:19 | NUR ---
Per [facility], they are out of network with pt's insurance plan. She is forwarding the referral to [facility]. Addendum: 02/17/19 at 1840 by Peyton Stockton CM [facility] phone number [phone] / F [phone] Yamila Kaye rep with [facility] [phone]
--- NOTE | 2019-02-17 16:22 | Diagnostic Imaging Report ---
EXAMINATION: CHEST XRAY LINE PLACEMENT INDICATION: Line placement COMPARISON: Chest radiograph of 02/16/2019 FINDINGS: LINES/TUBES:Interval placement of left PICC line which terminates in the superior vena cava. LUNGS:The lungs are well-inflated. No focal consolidation or pulmonary edema. Mild left basilar subsegmental atelectasis. PLEURA:No pleural effusion or pneumothorax. MEDIASTINUM:Cardiomediastinal silhouette is stably enlarged. BONES/SOFT TISSUES:No acute osseous injury. ABDOMEN:No free air under the diaphragm. IMPRESSION: Interval placement of left PICC line terminating in the superior vena cava. Subsegmental atelectasis at the left lung base. Unchanged cardiomegaly. Signed by: Hector Chan MD on 02/17/2019 4:18 PM
[2019-02-17] MEDS: INSULIN GLARGINE 100 UNITS/ML VIAL SQ SCH (21:30)
[2019-02-18] VITALS (8 sets, daily range): BP systolic 123–152; BP diastolic 60–75
[2019-02-18] MEDS: GABAPENTIN 100 MG CAP PO SCH ×3 (04:55→21:40)
[2019-02-18] MEDS: VANCOMYCIN 1GM/NS 250 ML 250 ML IV SCH (04:55)
[2019-02-18 05:15] LABS: ANION GAP 11.4 mmol/L (8-16); CALCIUM 8.1 mg/dL (8.4-10.2); CREATININE, SERUM 1.56 mg/dL (0.72-1.25); POTASSIUM 4.4 mmol/L (3.5-5.1)
--- NOTE | 2019-02-18 07:10 | NUR ---
RCD PT AT BED PT IS ALERT AND ORIENTED PT RESTING ON BED NO SIGNS OF ANY DISTRESS NOTED IV PATENT BED LOW AND LOCKED CALL LIGHT IN REACH
[2019-02-18] MEDS: PANTOPRAZOLE SOD 40 MG TABEC PO SCH (07:30)
[2019-02-18] MEDS: SITAGLIPTIN 100 MG TAB PO SCH (09:00)
[2019-02-18] MEDS: PRAVASTATIN 20 MG TAB PO SCH (09:00)
[2019-02-18] MEDS: MULTIVITAMINS/MINERALS TAB PO SCH (09:00)
[2019-02-18] MEDS: COLESTIPOL HCL 1 G TAB PO SCH (09:00)
[2019-02-18] MEDS: FERROUS SULFATE 325 MG TAB PO SCH (09:00)
[2019-02-18] MEDS ORDERED: FUROSEMIDE 20 MG TAB PO SCH (09:00)
[2019-02-18] MEDS: LISINOPRIL 10 MG TAB PO SCH (09:00)
[2019-02-18] MEDS: IRON SUCROSE 100 MG in SODIUM CHLORIDE 0.9% 100 ML 100 ML IV SCH (10:15)
[2019-02-18] MEDS: CEFEPIME 1GM/NS 0.9% 50 ML 50 ML IV SCH ×2 (11:00→22:20)
--- NOTE | 2019-02-18 11:13 | Progress Note ---
DATE: 02/18/2019 SUBJECTIVE: Feels okay. Foot is improving on the left side. Denied any dyspnea. Still has some swelling. OBJECTIVE: VITAL SIGNS: Temperature 97.1, pulse 69, and blood pressure 123/66. CHEST: Clear anteriorly. EXTREMITIES: 1+ edema on the left, trace on the right. ABDOMEN: Benign. NEURO: Alert and appropriate. SKIN: Redness on the left foot has improved. LABORATORY DATA: Hemoglobin is 8.4, sodium 129, K 4.4, serum CO2 of 22, creatinine 1.56, BUN 30, calcium 8.1. ASSESSMENT: 1. Chronic kidney disease, stage 3. 2. Acute tubular necrosis, improved. 3. Fluid overload with hyponatremia. PLAN: 1. Started Lasix, increased to twice a day. 2. Hydrochlorothiazide has been stopped. 3. Keep salt water restricted, tolerating lisinopril so far. MD LEANA Delacruz/ADRIEL /[id number]
--- NOTE | 2019-02-18 11:43 | Progress Note ---
DATE: 02/18/2019 SUBJECTIVE: The patient is seen at bedside, doing better, having some nausea. Denies any history of fever or chills. OBJECTIVE: VITAL SIGNS: Afebrile, pulse rate 69, respirations 20, blood pressure 123/66, and O2 saturation 98%. EXTREMITIES: Cellulitis of the left lower extremity is better. Still has positive edema. Puncture wound/ulceration closing to the plantar aspect left foot. There is minimal to no drainage. LABORATORY DATA: Labs noted, has a white blood cell count of 7.32. ASSESSMENT: Cellulitis with edema, resolving with IV antibiotics and local wound care. PLAN: Continue IV antibiotics, local wound care. Continue offloading. We will continue to follow. YANI Pedraza/ADRIEL /[id number]
--- NOTE | 2019-02-18 15:36 | NUR ---
ORDERS REC'D TODAY FOR [facility] EVAL PT WOULD RATHER GO HOME WITH IV ABX DR DALLAS EXPLAINED TO PT THAT HIS KIDNEYS NEED TO BE MONITORED VERY CLOSELY WHILE ON THE IV ABX AND WOUND NEEDS TO BE MONITORED PT AGREEABLE CHOICE LETTER FOR [facility] SIGNED AND ON CHART JG FOSTER WITH [facility] NOTIFIED OF CONSULT MOT INITIATED AND PLACED ON PACKET AT DESK PLAN TRANSFER WHEN ACCEPTED CM NOTIFIED DIGNA WITH [facility] OF PT TRANSFERING TO [facility]
[2019-02-18] MEDS: FUROSEMIDE 20 MG TAB PO SCH (17:00)
--- NOTE | 2019-02-18 18:46 | NUR ---
PT RESTING ON BED BED SIDE REPORT GIVEN TO ONCOMING NURSE
[2019-02-18] MEDS: INSULIN GLARGINE 100 UNITS/ML VIAL SQ SCH (21:40)
--- NOTE | 2019-02-18 22:00 | NUR ---
PATIENT IS AOX4 NO SIGNS OF DISTRESS NOTED. PATIENT DOES NOT VOICE ANY PAIN AT THIS TIME AND APPLIED NEW DRESSING TO WOUND, IT IS CLEAN DRY AND INTACT, NO DRAINAGE NOTED. BED IS IN LOWEST POSITION, CALL LIGHT WITHIN EASY REACH, WILL CONTINUE TO MONITOR.
[2019-02-19] VITALS (7 sets, daily range): BP systolic 98–161; BP diastolic 49–72
[2019-02-19] MEDS: VANCOMYCIN 1GM/NS 250 ML 250 ML IV SCH (05:35)
[2019-02-19] MEDS: GABAPENTIN 100 MG CAP PO SCH ×3 (05:35→21:25)
[2019-02-19 06:16] LABS: ANION GAP 12.7 mmol/L (8-16); CALCIUM 8.2 mg/dL (8.4-10.2); CREATININE, SERUM 1.4 mg/dL (0.72-1.25); POTASSIUM 4.7 mmol/L (3.5-5.1)
--- NOTE | 2019-02-19 07:10 | NUR ---
RCD PT AT BED PT IS ALERT AND ORIENTED RESTING ON BED NO SIGNS OF ANY DISTRESS NOTED IV PATENT BED LOW AND LOCKED CALL LIGHT IN REACH
[2019-02-19] MEDS: PANTOPRAZOLE SOD 40 MG TABEC PO SCH (07:30)
[2019-02-19] MEDS: FUROSEMIDE 20 MG TAB PO SCH (09:00)
[2019-02-19] MEDS: LISINOPRIL 10 MG TAB PO SCH (09:00)
[2019-02-19] MEDS: SITAGLIPTIN 100 MG TAB PO SCH (09:00)
[2019-02-19] MEDS: SIMETHICONE 80 MG CHEW PO PRN ×2 (09:00→22:45)
[2019-02-19] MEDS: FERROUS SULFATE 325 MG TAB PO SCH (09:00)
[2019-02-19] MEDS: COLESTIPOL HCL 1 G TAB PO SCH ×2 (09:00→16:53)
[2019-02-19] MEDS: MULTIVITAMINS/MINERALS TAB PO SCH (09:00)
[2019-02-19] MEDS: PRAVASTATIN 20 MG TAB PO SCH (09:00)
--- NOTE | 2019-02-19 10:00 | NUR ---
DRESSING CHANGED ON LEFT TOOT AND POST OP SHOES GIVEN
[2019-02-19] MEDS: IRON SUCROSE 100 MG in SODIUM CHLORIDE 0.9% 100 ML 100 ML IV SCH (10:15)
[2019-02-19] MEDS: CEFEPIME 1GM/NS 0.9% 50 ML 50 ML IV SCH ×2 (11:00→22:20)
[2019-02-19] MEDS: FUROSEMIDE INJ 10 MG/ML 4 ML VIAL IV SCH ×2 (11:03→16:53)
--- NOTE | 2019-02-19 11:11 | NUR ---
POST OP SHOES GIVEN
--- NOTE | 2019-02-19 12:00 | NUR ---
Spoke with Tamiko with [facility]. Stated we are pending insurance auth. Once approved, pt will need to go to [facility] due to insurance. She has already spoken with pt and informed him.
--- NOTE | 2019-02-19 12:05 | Progress Note ---
DATE: 02/19/2019 SUBJECTIVE: He has turned out he has quite a bit of swelling after he stood up for some time overnight. Denies any dyspnea still. He is on p.o. Lasix. OBJECTIVE: VITAL SIGNS: Temperature 98.2, pulse 67, blood pressure 155/72. CHEST: Clear. EXTREMITIES: 2+ edema. Left leg cellulitis, improved. CARDIAC: Normal heart tones. Rhythm sounds regular. LABORATORY DATA: Reviewed. Creatinine is 1.4, sodium 128, serum CO2 20, last uric acid was 8.6. ASSESSMENT: 1. Chronic kidney disease, stage 3. 2. Diabetic nephropathy. 3. Fluid overload. 4. Hyponatremia from above. 5. Hyperuricemia. PLAN: 1. Changed IV Lasix. 2. Allopurinol 100 mg a day. 3. Serial chemistries. 4. He does not appear to be consuming too much fluid. Thank you for allowing us to participate in Mr. Mireles's care. MD EDUARDA DelacruzK/ADRIEL /[id number]
--- NOTE | 2019-02-19 16:47 | Progress Note ---
DATE: 02/19/2019 SUBJECTIVE: The patient is seen at bedside. Still has moderate amount of swelling to the left lower extremity. Cellulitis is resolving very slowly. Denies any history of fever, chills, nausea, or vomiting. OBJECTIVE: VITAL SIGNS: Afebrile, pulse rate 67, respirations 18, blood pressure 98/49, and O2 saturation 99%. EXTREMITIES: Positive edema and cellulitis to left lower extremity. Ulcer to plantar aspect left foot healing. There is negative drainage, less than 1 cm in diameter. LABORATORY DATA: Labs noted, has a white blood cell count of 7.32. ASSESSMENT: Cellulitis and edema with neuropathy and diabetes. PLAN: Continue IV antibiotics. Continue local wound care. We will continue to follow. Continue offloading. The patient is instructed when sitting he need to keep his foot elevated and start weightbearing with the aid of a surgical shoe. YANI Pedraza/ADRIEL /[id number]
--- NOTE | 2019-02-19 18:42 | NUR ---
PT RESTING ON BED BED SIDE REPORT GIVEN TO ONCOMING NURSE
--- NOTE | 2019-02-19 20:10 | NUR ---
PATIENT HAS LEFT VIA STRETCHER WITH EMS. Addendum: 02/19/19 at 2010 by Roe Egan RN WRONG PATIENT
[2019-02-19] MEDS: INSULIN GLARGINE 100 UNITS/ML VIAL SQ SCH (21:25)
--- NOTE | 2019-02-19 22:20 | NUR ---
PATIENT IS AOX4 NO SIGNS OF DISTRESS NOTED. PATIENT DOES NOT VOICE ANY PAIN AT THIS TIME AND APPLIED NEW DRESSING TO WOUND, IT IS CLEAN DRY AND INTACT NO DRAINAGE NOTED. PATIENT NOW RUNNING ON ANTIBIOTIC AT ORDERED RATE, BED IS IN LOWEST POSITION, CALL LIGHT WITHIN EASY REACH, WILL CONTINUE TO MONITOR.
--- NOTE | 2019-02-19 23:00 | NUR ---
PATIENT COMPLAINED OF GAS AND PRESSURE IN ABDOMEN. HE WAS MEDICATED NEEDED CONTINUING TO MONITOR.
[2019-02-20] VITALS (7 sets, daily range): BP systolic 120–166; BP diastolic 58–76
--- NOTE | 2019-02-20 01:17 | NUR ---
PATIENT RESTING IN BED BOTH EYES CLOSED, NO SIGNS OF DISTRESS NOTED. PATIENT NO LONGER VOICES PAIN, BED IS IN LOWEST POSITION, CALL LIGHT WITHIN REACH, WILL CONTINUE TO MONITOR.
[2019-02-20 05:46] LABS: BASOPHILS % 0.4 % (0.0-1.0); EOSINOPHILS # (AUTO) 0.2 (0.0-0.4); EOSINOPHILS % 1.8 % (0.0-6.0); HEMATOCRIT 25.9 % (38.2-49.6); LYMPHOCYTES # (AUTO) 2.6 (1.0-3.2); LYMPHOCYTES % 24.2 % (18.0-39.1); MEAN CORPUSCULAR HEMOGLOBIN 29.4 pg (28-32); MEAN CORPUSCULAR HGB CONC 34.7 g/dL (31-35); MEAN CORPUSCULAR VOLUME 84.6 fL (81-99); MONOCYTES # (AUTO) 0.6 (0.2-0.8); MONOCYTES % 6.1 % (4.4-11.3); NEUTROPHILS # (AUTO) 7.1 (2.1-6.9); NEUTROPHILS % 67.1 % (38.7-80.0); PLATELET COUNT 383 x10e3/uL (140-360); RED BLOOD COUNT 3.06 x10e6/uL (4.3-5.7); RED CELL DISTRIBUTION WIDTH 11.7 % (11.7-14.4)
[2019-02-20 05:57] LABS: CALCIUM 8.6 mg/dL (8.4-10.2); CREATININE, SERUM 1.42 mg/dL (0.72-1.25)
[2019-02-20] MEDS: VANCOMYCIN 1GM/NS 250 ML 250 ML IV SCH (06:31)
[2019-02-20] MEDS: GABAPENTIN 100 MG CAP PO SCH ×3 (06:32→22:00)
[2019-02-20] MEDS: ALLOPURINOL 100 MG TAB PO SCH (09:00)
[2019-02-20] MEDS: PANTOPRAZOLE SOD 40 MG TABEC PO SCH (09:38)
[2019-02-20] MEDS: FUROSEMIDE INJ 10 MG/ML 4 ML VIAL IV SCH ×2 (09:38→18:07)
[2019-02-20] MEDS: MULTIVITAMINS/MINERALS TAB PO SCH (09:39)
[2019-02-20] MEDS: SITAGLIPTIN 100 MG TAB PO SCH (09:39)
[2019-02-20] MEDS: COLESTIPOL HCL 1 G TAB PO SCH ×2 (09:39→18:07)
[2019-02-20] MEDS: LISINOPRIL 10 MG TAB PO SCH (09:39)
[2019-02-20] MEDS: PRAVASTATIN 20 MG TAB PO SCH (09:39)
[2019-02-20] MEDS: FERROUS SULFATE 325 MG TAB PO SCH (09:39)
[2019-02-20] MEDS: CEFEPIME 1GM/NS 0.9% 50 ML 50 ML IV SCH ×2 (12:30→23:00)
[2019-02-20] MEDS: IRON SUCROSE 100 MG in SODIUM CHLORIDE 0.9% 100 ML 100 ML IV SCH (14:00)
--- NOTE | 2019-02-20 14:51 | NUR ---
Nutrition Screen Note RD Recommendation for Physician: Continue diet as ordered Plan of Care: RD following, monitoring for tolerance and adequacy Nutrition reason for involvement: LOS Primary Diagnose(s): Left foot osteomyelitis PMH: T2DM, CKD stage 3, hypercholesterolemia, HTN, Ht:69 in Wt:215lb BMI:31.7 kg/m2 IBW:160lb +/-10% RD Assessment: (02/20/2019) Chart reviewed. Labs and meds reviewed. Initial encounter with patient. Pt states that he is missing items he ordered on tray and that he is being told some of those items are not available without any notification. RD spoke to Kitchen. Pt with limited acceptance of cardiac diet. No significant wt changes, Pt denies any food allergies, nausea, chewing, swallowing or diarrhea. Current Diet: Cardiac Malnutrition Evaluation (02/20/2019) The patient does not meet criteria for a specified degree of malnutrition at this time. Will re-evaluate at follow-up as appropriate. Diet Education Needs Assessment: Diet education not indicated. Nutrition Care Level: Low Signed: Armando Shah RD, LD, [facility]
--- NOTE | 2019-02-20 17:42 | Progress Note ---
DATE: SUBJECTIVE: Mr. Mireles is doing better, no new complaints. REVIEW OF SYSTEMS: Negative otherwise. PHYSICAL EXAMINATION: GENERAL: He is currently alert, oriented, does not seem to be in acute distress. VITAL SIGNS: Stable, currently afebrile. HEENT: Not icteric. NECK: Supple. CHEST: Clear. HEART: S1, S2. No S3 or S4. ABDOMEN: Soft. EXTREMITIES: Foot looks much better. IMPRESSION: 1. Abscess of the foot cellulitis, status post drainage, doing clinically better. The bone scan was positive for maybe early osteo, but the patient is improving. I think care we can discharge him on Friday with oral antibiotic, doxycycline 100 mg p.o. b.i.d., and Cipro 500 mg p.o. b.i.d. for 2 weeks. Follow up as an outpatient. 2. Chronic kidney disease, we will follow. Discussed with patient at length. 3. Diabetes mellitus with neuropathy, stable. MD MALIKA Alvarez/MODL /[id number]
--- NOTE | 2019-02-20 18:42 | Consultation ---
DATE OF CONSULTATION: 02/20/2019 SUBJECTIVE: The patient is at bedside, feeling better. Denies any history of fever, chills, nausea, or vomiting. OBJECTIVE: VITAL SIGNS: Afebrile, pulse rate 72, respirations 19, blood pressure 120/58, and O2 saturation 96%. EXTREMITIES: Cellulitis noted to the left foot, still with positive edema, increased skin temperature, but diminishing. Lesion to the ulcer to the plantar aspect left foot, healing, no drainage. There is still some swelling, 2nd, 3rd, and 4th digits of the left foot with pedal pulses palpable. LABORATORY DATA: Labs show white blood cell count of 10.5 with a hemoglobin of 9.0. ASSESSMENT: Cellulitis for now, grade 1/2 ulceration, left foot; healing slowly. PLAN: We will continue IV antibiotics for a couple of more days. Continue to monitor the patient. Continue applying diluted wet-to-dry Betadine to the ulceration site. Continue offloading. We will continue to follow. YANI Pedraza/ADRIEL /[id number]
--- NOTE | 2019-02-20 19:05 | NUR ---
Bedside rounds completed with morning nurse. Pt alert and oriented to name. In bathroom. Will continue to monitor.
[2019-02-20] MEDS: INSULIN GLARGINE 100 UNITS/ML VIAL SQ SCH (21:00)
[2019-02-21] VITALS (8 sets, daily range): BP systolic 100–169; BP diastolic 50–75
[2019-02-21] MEDS: GABAPENTIN 100 MG CAP PO SCH ×3 (06:00→21:24)
[2019-02-21] MEDS: VANCOMYCIN 1GM/NS 250 ML 250 ML IV SCH (06:00)
[2019-02-21] MEDS: MULTIVITAMINS/MINERALS TAB PO SCH (09:16)
[2019-02-21] MEDS: FUROSEMIDE INJ 10 MG/ML 4 ML VIAL IV SCH ×2 (09:16→16:58)
[2019-02-21] MEDS: PRAVASTATIN 20 MG TAB PO SCH (09:16)
[2019-02-21] MEDS: FERROUS SULFATE 325 MG TAB PO SCH (09:16)
[2019-02-21] MEDS: COLESTIPOL HCL 1 G TAB PO SCH ×2 (09:16→16:58)
[2019-02-21] MEDS: SITAGLIPTIN 100 MG TAB PO SCH (09:16)
[2019-02-21] MEDS: PANTOPRAZOLE SOD 40 MG TABEC PO SCH (09:16)
[2019-02-21] MEDS: LISINOPRIL 10 MG TAB PO SCH (09:18)
[2019-02-21] MEDS: ALLOPURINOL 100 MG TAB PO SCH (09:18)
[2019-02-21] MEDS: CEFEPIME 1GM/NS 0.9% 50 ML 50 ML IV SCH ×2 (10:42→23:00)
[2019-02-21] MEDS: IRON SUCROSE 100 MG in SODIUM CHLORIDE 0.9% 100 ML 100 ML IV SCH (12:36)
--- NOTE | 2019-02-21 15:35 | NUR ---
Visit made by the Spiritual Care Department Pastoral Visitor, Remi Hernandez. PV provided pastoral presence, prayer, hospitality, and supportive listening. Pastoral Visitor informed pt/family of the scope of [employer] and availability. COREY CODY Kettle Fry Cook Operator Spiritual Care Department O: [phone] Pager: [phone] ([phone] number calling from)
--- NOTE | 2019-02-21 17:45 | Consultation ---
DATE OF CONSULTATION: 02/21/2019 SUBJECTIVE: The patient is at bedside, doing better. He is denying any history of fever, chills, nausea or vomiting, some swelling to the left lower extremity. OBJECTIVE: VITAL SIGNS: Afebrile, pulse rate 69, respirations 17, blood pressure 137/63, and O2 saturation 96%. EXTREMITIES: Cellulitis of the left lower extremity continues to improve. Positive edema when compared to contralateral side. Ulcer to the plantar aspect left foot, almost closed with no drainage. LABORATORY DATA: Labs show white blood cell count of 10.5, hemoglobin 9.0 with a platelet count of 383. ASSESSMENT: Cellulitis, left foot, grade 1 ulcer with edema. PLAN: Continue IV antibiotics. Continue local wound care. We will continue offloading. Continue to follow. YANI Pedraza/ADRIEL /[id number]
--- NOTE | 2019-02-21 20:12 | NUR ---
RECEIVE DPT IN BED AOX2 LEFT FOOT WITH DRESSING DENIES PAIN SITTER BEDSIDE .DENIES PAIN .CALL LIGHT WITH IN REACH .CONTINUE TO MONITOR
--- NOTE | 2019-02-21 20:20 | NUR ---
RECEIVED PT IN BED AOX3 LEFT FOOT WITH DRESSING .DENIES PAIN .CALL LIGHT WITH IN REACH .CONTINUE TO MONITOR
[2019-02-21] MEDS: INSULIN GLARGINE 100 UNITS/ML VIAL SQ SCH (21:12)
[2019-02-22] VITALS: BP_SYST 147; BP_SYST 153; BP_DIAS 78; BP_DIAS 81
[2019-02-22 04:00] VITALS: BP 110/53
[2019-02-22] MEDS: GABAPENTIN 100 MG CAP PO SCH ×2 (06:00→15:00)
[2019-02-22] MEDS: VANCOMYCIN 1GM/NS 250 ML 250 ML IV SCH (06:00)
--- NOTE | 2019-02-22 07:00 | NUR ---
received am report from nurse and morning rounds done. pt is sleeping in bed, no s/s of distress. call light within reach and side rails are up
--- NOTE | 2019-02-22 07:34 | NUR ---
PT RESTED DURING THE NIGHT .DENIES PAIN .CALL LIGHT WITH IN REACH .GIVEN BEDSIDE REPORT TO THE ONCOMING NURSE.
[2019-02-22 07:37] VITALS: BP 108/59
[2019-02-22] MEDS: PANTOPRAZOLE SOD 40 MG TABEC PO SCH (09:38)
[2019-02-22] MEDS: FUROSEMIDE INJ 10 MG/ML 4 ML VIAL IV SCH ×2 (09:38→17:23)
[2019-02-22] MEDS: COLESTIPOL HCL 1 G TAB PO SCH ×2 (09:38→17:23)
[2019-02-22] MEDS: MULTIVITAMINS/MINERALS TAB PO SCH (09:39)
[2019-02-22] MEDS: FERROUS SULFATE 325 MG TAB PO SCH (09:39)
[2019-02-22] MEDS: SITAGLIPTIN 100 MG TAB PO SCH (09:39)
[2019-02-22] MEDS: PRAVASTATIN 20 MG TAB PO SCH (09:40)
[2019-02-22] MEDS: LISINOPRIL 10 MG TAB PO SCH (09:40)
[2019-02-22] MEDS: ALLOPURINOL 100 MG TAB PO SCH (09:41)
--- NOTE | 2019-02-22 10:30 | NUR ---
Spoke with Tamiko with [facility]. They received denial from insurance. She's reaching out to Dr. Love to see if he wants to appeal.
[2019-02-22 10:46] VITALS: BP 108/59
[2019-02-22 11:56] VITALS: BP 163/81
[2019-02-22] MEDS: CEFEPIME 1GM/NS 0.9% 50 ML 50 ML IV SCH (12:15)
--- NOTE | 2019-02-22 12:15 | NUR ---
WOUND CARE DRESSING CHANGED
[2019-02-22] MEDS: IRON SUCROSE 100 MG in SODIUM CHLORIDE 0.9% 100 ML 100 ML IV SCH (13:47)
--- NOTE | 2019-02-22 14:20 | NUR ---
CM called Dr. Love's office and spoke to Griselda. Left message for Dr. Love regarding LT[facility] denial and inquire about how he wants to proceed. Appeal vs SNF vs IV abx at home. Left CM contact information. Awaiting response.
--- NOTE | 2019-02-22 15:16 | NUR ---
Al left prescriptions in pt's chart for oral antibiotics. CM called Dr. Love's office to to inform him. Left message for him to call back. NORMAN George was informed of Rx on chart and will page Dr. Love as well.
[2019-02-22 15:40] VITALS: BP 160/78
--- NOTE | 2019-02-22 15:51 | Progress Note ---
DATE: 02/22/2019 SUBJECTIVE: The patient at bedside, doing better. Denies any history of fever, chills, nausea, or vomiting, but decreased swelling to the left lower extremity. OBJECTIVE: VITAL SIGNS: Afebrile, pulse rate 65, respirations 17, blood pressure 108/59, and O2 saturation 98%. EXTREMITIES: Cellulitis of the left foot continues to improve. Still positive edema. There is a little slight increasing skin temperature, left lower extremity compared to the right. Ulceration plantar aspect left great toe still open, but less than 1 cm in diameter. ASSESSMENT: Grade 1 ulcer with cellulitis, left foot edema and diabetic neuropathy. PLAN: Continue antibiotics okay from a foot standpoint. The patient to be discharged on oral or IV as per Dr. Colunga. Continue local wound care at home and the patient instructed to follow up within one week in the office. YANI Pedraza/ADRIEL /[id number]
--- NOTE | 2019-02-22 16:00 | NUR ---
Received call back from Dr. Love. Informed him that pt has Rx on chart for antibiotics. States he will round at hospital after 5pm today.
--- NOTE | 2019-02-22 17:35 | NUR ---
IMM letter delivered and explained to pt. He stated he understands but wants to read over the form after he eats dinner, does not want to sign form at this time. Copy left with pt at bedside. Witnessed by Aleyda Renee RN/RUFINA.
[2019-02-22] MEDS ORDERED: DOXYCYCLINE HY100 MG PO (17:38)
[2019-02-22] MEDS ORDERED: CIPRO500 MG PO (17:38)
[2019-02-22 17:39] LABS: BASOPHILS # (AUTO) 0.1 (0.0-0.1); BASOPHILS % 0.5 % (0.0-1.0); EOSINOPHILS # (AUTO) 0.3 (0.0-0.4); EOSINOPHILS % 2.9 % (0.0-6.0); HEMATOCRIT 25.7 % (38.2-49.6); HEMOGLOBIN 8.3 g/dL (14.0-18.0); LYMPHOCYTES # (AUTO) 2.7 (1.0-3.2); LYMPHOCYTES % 27.3 % (18.0-39.1); MEAN CORPUSCULAR HEMOGLOBIN 28.9 pg (28-32); MEAN CORPUSCULAR HGB CONC 32.3 g/dL (31-35); MEAN CORPUSCULAR VOLUME 89.5 fL (81-99); MONOCYTES # (AUTO) 0.9 (0.2-0.8); MONOCYTES % 9.1 % (4.4-11.3); NEUTROPHILS # (AUTO) 5.8 (2.1-6.9); NEUTROPHILS % 59.7 % (38.7-80.0); PLATELET COUNT 365 x10e3/uL (140-360); RED BLOOD COUNT 2.87 x10e6/uL (4.3-5.7)
[2019-02-22 17:48] LABS: ANION GAP 15.2 mmol/L (8-16); CALCIUM 8.7 mg/dL (8.4-10.2); CREATININE, SERUM 1.45 mg/dL (0.72-1.25); POTASSIUM 4.2 mmol/L (3.5-5.1)
--- NOTE | 2019-02-22 21:57 | Discharge Summary ---
DISCHARGE DIAGNOSES: 1. Osteomyelitis of the left foot. 2. Chronic kidney disease, stage 3, stable. 3. Anemia of chronic disease. 4. Type 2 diabetes mellitus, which is under acceptable control. HOSPITAL COURSE: Mr. Mireles is a 68-year-old gentleman, well known to me from the office. He has history significant for type 2 diabetes mellitus, which is poorly controlled, chronic kidney disease stage 3. He came to the office with swelling and erythema of the left foot and a small lesion on the sole of the foot. He stated that he had stepped on something. Outpatient x-rays were negative for any foreign body. He was given oral antibiotics and after 2 days, he returned to the emergency department as his symptoms were worse. X-ray taken at the hospital was consistent with a foreign body at the sole of the foot, which later on turned out to be a glass shard. He was having significant redness, inflammation, and he was admitted and started on IV antibiotics. Consultations were requested with Infectious Disease, Nephrology, and Podiatry. He underwent incision and drainage of the foot lesion. No additional foreign body was found. An MRI was consistent with findings of osteomyelitis involving the distal third and fourth metacarpal bones. He was continued on IV antibiotics and the request was made for LTAC for prolonged antibiotic therapy IV. He was seen also in consultation by Nephrology given the patient's CKD. He had some electrolyte derangements that were corrected. After several efforts, the LTAC transfer was declined by the insurance company and alternatively the patient has been discharged home on a combination of oral doxycycline and ciprofloxacin. He is to follow up with Dr. Colunga in 2 weeks and he is to follow up in the office in 1 week. MD JERICHO Gill/ALESIAL /[id number]
== END 2019-02-22 18:48 | disposition home or self-care (01) | DRG 623 ==
LOC: ER 10:36 → ERHOLD 12:45 → MED/SURG2 15:09
PROVIDERS: ADMIT Internal Medicine; ATTEND Internal Medicine
PROC: 02HV33Z Insertion of Infusion Device into Superior Vena Cava, Percutaneous Approach (ICD-10-PCS; 2019-02-16)
PROC: 0KBW0ZZ Excision of Left Foot Muscle, Open Approach (ICD-10-PCS; principal; 2019-02-17)
DX: E11.69 Type 2 diabetes mellitus with other specified complication (principal); L03.116 Cellulitis of left lower limb; M86.8X7 Other osteomyelitis, ankle and foot; N17.0 Acute kidney failure with tubular necrosis; S91.322A Laceration with foreign body, left foot, initial encounter; E11.40 Type 2 diabetes mellitus with diabetic neuropathy, unspecified; E11.22 Type 2 diabetes mellitus with diabetic chronic kidney disease; I12.9 Hypertensive chronic kidney disease with stage 1 through stage 4 chronic kidney disease, or unspecified chronic kidney disease; N18.3 Chronic kidney disease, stage 3 (moderate); Z79.4 Long term (current) use of insulin; D63.1 Anemia in chronic kidney disease; S91.342A Puncture wound with foreign body, left foot, initial encounter; W25.XXXA Contact with sharp glass, initial encounter; W45.8XXA Other foreign body or object entering through skin, initial encounter
CPT/HCPCS: 36415; 36569; 71045; 76770; 80048; 80053; 80202; 81001; 82550; 82553; 82570; 82728; 82948; 83540; 83605; 83735; 83880; 83970; 84100; 84156; 84165; 84466; 84484; 84550; 85025; 85610; 85730; 87040; 93005; 93306; 99284; J0692; J1756; J1815; J1940; J2001; J2270; J3370; J7030

== ENCOUNTER 2019-09-17 12:47 | Inpatient (IN) | payer MEDICARE, OTHER ==
[~2019-09-17] VITALS: Ht 175.3 cm; Wt 97.5 kg
[~2019-09-17 12:47] MED LIST: CIPRO500 MG PO; COLESTIPOL HCL1 GM PO; CREON DR 12,001 EACH PO; DOXYCYCLINE HY100 MG PO; GABAPENTIN100 MG PO; HYDROCHLOROTHIA25 MG PO; JANUVIA100 MG PO; LEVEMIR100 UNIT/1 SQ; LISINOPRIL10 MG PO; MULTI-VITAMIN1 EACH PO; NOVOLIN N100 UNIT/1 SQ; PANTOPRAZOLE SO40 MG PO; PRAVASTATIN SOD40 MG PO
--- OUTSIDE RECORDS SUMMARY | 2019-09-17 12:51 | XMS REPORT | Summary of Care ---
Author KADEEM Manning M.A. Organization Unknown Address [facility] Phone Unavailable Care Team Providers Care Blindstitch Machine Operator Name Role Phone LOLA DALLAS M.D. Unavailable Yaritza Ness M.A. Unavailable Unavailable BURT SNYDER NE, LOLA Arora Unavailable Unavailable SHER FARRIS NE, OBZENA Arora Unavailable Unavailable Son Miner MD Unavailable Unavailable Unavailable Unavailable Functional Status Name Dates Details Functional status health issues are not documented Status: Name Dates Details Cognitive status health issues are not d ocumented Status: Problems Name Dates Details Need for hepatitis C screening test (V73 .89, Z11.59) Status: Active Peripheral edema (782.3, R60.9) Status: Active Colon cancer screening (V76.51, Z12.11) Status: Active Diarrhea (787.91, R19.7) Status: Active Gastroesophageal reflux disease, esophag itis presence not specified (530.81, K21.9) Status: Active Mouth ulcers (528.9, K12.1) Status: Active Vitamin B12 deficiency (266.2, E53.8) Status: Active Diabetic neuropathy (250.60, E11.40) Status: Active Pancreatic insufficiency (577.8, K86.89) Status: Active Diabetic infection of left foot (250.80, E11.628) Status: Active Cellulitis of foot (682.7, L03.119) Status: Active Osteomyelitis of left foot, unspecified type (730.27, M86.9) Status: Active Abdominal pain (789.00, R10.9) Status: Active Chronic diarrhea of unknown origin (787. 91, K52.9) Status: Active Uncontrolled type 2 diabetes mellitus wi th microalbuminuria, with long-term current use of insulin (250.42, E11.29) Status: Active Iron deficiency anemia (280.9, D50.9) Status: Active CKD stage 4 due to type 2 diabetes tre ramirez (250.40, E11.22) Status: Active Diabetes mellitus type 2, controlled (25 0.00, E11.9) Status: Active Essential (primary) hypertension (401.9, I10) Status: Active Hypercholesterolemia (272.0, E78.00) Status: Active Hyperkalemia (276.7, E87.5) Status: Active Medications Name Dates Details Pravastatin Sodium 40 MG Oral Tablet TAKE 1 TABLET BY MOUTH EVERY DAY DIRECTED Quantity: 90 LOLA DALLAS M.D. * Start : 30-Nov-2018 Active Pantoprazole Sodium 40 MG Oral Tablet Delayed Release TAKE 1 TABLET DAILY * Quantity: 90 Refills: 1 LOLA DALLAS M.D. Active Gabapentin 100 MG Oral Capsule TAKE 1 CAPSULE EVERY 8 HOURS * Quantity: 270 Refills: 1 LOLA DALLAS M.D. * Start : 10-Jun-2018 Active Januvia 100 MG Oral Tablet TAKE ONE TABLET BY MOUTH IN THE MORNING * Quantity: 30 Refills: 6 LOLA DALLAS M.D. * Start : 03-Aug-2018 Active BD Pen Needle Short U/F 31G X 8 MM USE 5 A DAY * Quantity: 150 Refills: 2 LOLA DALLAS M.D. * Start : 03-Aug-2018 Active NovoLIN R ReliOn 100 UNIT/ML Injection Solution INJECT 12 UNITS WITH EACH MEAL. * Quantity: 2 Refills: 6 LOLA DALLAS M.D. * Start : 23-Nov-2018 Active 10 ML Vial BD Insulin Syringe U/F 30G X 1/2" 1 ML USE DIRECTED * Quantity: 450 Refills: 1 LOLA DALLAS M.D. * Start : 23-Nov-2018 Active Colestipol HCl - 1 GM Oral Tablet TAKE 1 TABLET DAILY * Refills: 0 Active Multi-Vitamin TABS TAKE 1 TABLET DAILY. * Refills: 0 Active Furosemide 20 MG Oral Tablet TAKE ONE TABLET BY MOUTH DAILY (TAKE IN THE MORNING) * Quantity: 90 Refills: 2 LOLA DALLAS M.D. * Start : 23-Feb-2019 Active hydroCHLOROthiazide 12.5 MG Oral Capsule TAKE ONE CAPSULE BY MOUTH DAILY * Quantity: 90 Refills: 1 LOLA DALLAS M.D. * Start : 24-Feb-2019 Active Creon 18827 UNIT Oral Capsule Delayed Release Particles TAKE 1 TABLET DAILY WITH EVENING MEAL * Refills: 0 Active NovoLIN N ReliOn 100 UNIT/ML Subcutaneous Suspension INJECT 40 UNITS AT BEDTIME * Refills: 0 Active 10 ML Vial Iron TABS TAKE 1 TABLET DAILY * Refills: 0 Active Accu-Chek Andie Plus w/Device Kit USE DIRECTED, (MAY SUBSTITUTE CONTOUR PLUS GLUCOMETER) * Quantity: 1 Refills: 0 BURT Espana, LOLA * Start : 14-May-2019 Active Accu-Chek Andie In Vitro Solution USE DIRECTED. * Quantity: 100 Refills: 1 BURT Espana, LOLA * Start : 14-May-2019 Active Accu-Chek Andie Plus In Vitro Strip USE 1 STRIP TO CHECK BLOOD SUGAR 5 TIMES DAILY DIRECTED * Quantity: 450 Refills: 1 BURT Ryder.Emily., LOLA * Start : 14-May-2019 Active Accu-Chek Softclix Lancets Check blood sugar five times daily * Quantity: 450 Refills: 1 BURT Blake., LOLA * Start : 14-May-2019 Active Sodium Polystyrene Sulfonate 15 GM/60ML Oral Suspension TAKE 30 GM/ 120 mL; REPEAT DOSE IN 4 HOURS. TOTAL TWO DOSES. * Quantity: 240 Refills: 0 BURT Espana, LOLA * Start : 12-Jul-2019 Active Allergies and Adverse Reactions Name Dates Details Dairy (Allergy) Status: Active Past Medical History Name Dates Details History of hyperlipidemia (V12.29, Z86.3 9) Status: Resolved History of Lactose intolerance (271.3, E 73.9) Status: Resolved History of peripheral neuropathy (V12.49 , Z86.69) Status: Resolved History of type 2 diabetes mellitus (V12 .29, Z86.39) Status: Resolved Procedures Procedure Dates Details [[facility]] BASIC METABOLIC PANEL W/EGFR Date: 12-Jul-2019 Immunization Name Dates Details Zoster (Zostavax) on: May-2016 Tdap on: May-2017 Influenza, seasonal, injectable on: 09-Feb-2018 Prevnar 13 Intramuscular Suspension on: 10-Jun-2018 Shingrix 50 MCG Intramuscular Suspension Reconstituted on: 10-Jul-2018 Shingrix 50 MCG Intramuscular Suspension Reconstituted on: 09-Sep-2018 Influenza, seasonal, injectable on: 05-Feb-2019 Family History Name Dates Details Family history of cerebrovascular accide nt (CVA) (V17.1, Z82.3) Status: Active Name Dates Details Family history of malignant neoplasm of colon (V16.0, Z80.0) Status: Active Family history of type 2 diabetes [facility] (V18.0, Z83.3) Status: Active Family history of hyperlipidemia (V18.19 , Z83.438) Status: Active Name Dates Details Family history of alcoholism (V17.0, Z81 .1) Status: Active Name Dates Details Family history of lymphoma (V16.7, Z80.7 ) Status: Active Social History Name Dates Details - Status: Name Dates Details Never smoked tobacco (finding) Vital Signs Date Test Result Details :32 Systolic blood pressure 137 mm[Hg] Status: Comments : Location: LUE; Position: Sitting Diastolic blood pressure 68 mm[Hg] Status: Comment s: Location: LUE; Position: Sitting Heart Rate 62 /min Status: :29 Systolic blood pressure 143 mm[Hg] Status: Comments : Location: LUE; Position: Sitting Diastolic blood pressure 63 mm[Hg] Status: Comment s: Location: LUE; Position: Sitting Physical Findings 1 Status: Comments: PH Q-9 Adult Depression Screening Heart Rate 62 /min Status: Body height 69 in Status: Weight 220.9 lb Status: Body mass index (BMI) [Ratio] 32.62 kg/m2 Status: Body surface area Derived from formula 2.15 m2 S tatus: Body temperature 98.2 f Status: Comments: Me thod: Oral Respiratory rate 16 /min Status: Physical Findings 0 Status: Comments: Al cohol Screen - How many times in the past yr have you had 5 (for M) or 4 (for F) or 4 (for all > 65yrs) or more drinks in a day? Results Date Description Value Details :00 Positive Retinal Eye Exam (Diabetic) Positive Diabetic Eye Screening [id number] 9 (Abnormal) :47 [[facility]] LIPID PANEL CHOLESTEROL, TOTAL 133 mg/dl (Normal) Range: <2 00 HDL CHOLESTEROL 38 mg/dl (Below low threshold) Range: > OR = 40 TRIGLYCERIDES 106 mg/dl (Normal) Range: <150 LDL-CHOLESTEROL 76 {MG/DL__CAL} (Normal) Commen ts: Reference range: <100 Desirable range <100 mg/dL for primary prevention; <70 mg/dL for patients with CHD or diabetic patients with > or = 2 CHD risk factors. LDL-C is now calculated using the Stephanie calculation, which is a validated novel method providing better accuracy than the Friedewald equation in the estimation of LDL- C. Grover FISCHER et al. JANAK. 2013;310(19): 6693-4660 (http ://education.[employer]/faq/QGQ336) CHOL/HDLC RATIO 3.5 {CALC} (Normal) Range: <5.0 NON HDL CHOLESTEROL 95 {MG/DL__CAL} (Normal) Ra nge: <130 Comments: For patients with diabetes plus 1 major ASCVD risk factor, treating to a non-HDL-C goal of <100 mg/dL (LDL-C of <70 mg/dL) is considered a therapeutic option. :47 [QL] MICROALBUMIN, RANDOM URINE (W/CREA TININE) Comments: Reference RangeNot established CREATININE, RANDOM URINE 91 mg/dl (Normal) Rang e: 20-320 MICROALBUMIN 18.0 mg/dl (Normal) Comments: R eference RangeNot established MICROALBUMIN/CREATININE RATIO, RANDOM UR INE 198 {MCG/MG_CRE} (Above high threshold) Range: <30 Comments: The ADA defines abnormalities in albuminexcretion as follows: Category Result (mcg/mg creatinine) Normal <30Microalbuminuria 30-299 Clinical albuminuria > OR = 300 The ADA recommends that at least two of threespecimens collected within a 3-6 month period beabnormal before considering a patient to bewithin a diagnostic category. :47 [QL] CMP W/EGFR GLUCOSE 73 mg/dl (Normal) Range: 65-99 Comments: Fasting reference interval UREA NITROGEN (BUN) 44 mg/dl (Above high thresh old) Range: 7-25 Comments: Verified by repeat analysis. CREATININE 2.19 mg/dl (Above high threshol d) Range: 0.70-1.25 Comments: For patients >49 years of age, the reference limitfor Creatinine is approximately 13% higher for peopleidentified as -[place]. eGFR NON- 30 {ML/MIN/1.7} (Belo w low threshold) Range: > OR = 60 eGFR 35 {ML/MIN/1.7} (Below lo w threshold) Range: > OR = 60 BUN/CREATININE RATIO 20 {CALC} (Normal) Range: 6-22 SODIUM 140 mmol/L (Normal) Range: 135- 146 POTASSIUM 6.1 mmol/L (Above high threshol d) Range: 3.5-5.3 CHLORIDE 110 mmol/L (Normal) Range: 98-1 10 CARBON DIOXIDE 21 mmol/L (Normal) Range: 20-32 CALCIUM 9.0 mg/dl (Normal) Range: 8.6-1 0.3 PROTEIN, TOTAL 7.3 g/dl (Normal) Range: 6.1-8. 1 ALBUMIN 4.4 g/dl (Normal) Range: 3.6-5. 1 GLOBULIN 2.9 {G/DL__CALC} (Normal) Range : 1.9-3.7 ALBUMIN/GLOBULIN RATIO 1.5 {CALC} (Normal) Rang e: 1.0-2.5 BILIRUBIN, TOTAL 0.3 mg/dl (Normal) Range: 0.2- 1.2 ALKALINE PHSPHATASE 83 u/l (Normal) Range: 35-1 44 AST 24 u/l (Normal) Range: 10-35 ALT 19 u/l (Normal) Range: 9-46 :47 [QL] CBC (INCLUDES DIFF/PLT) WHITE BLOOD CELL COUNT 6.0 {Thousand/u} (Normal ) Range: 3.8-10.8 RED BLOOD CELL COUNT 3.70 {Million/uL} (Below l ow threshold) Range: 4.20-5.80 HEMAGLOBIN 10.8 g/dl (Below low threshold) Range: 13.2-17.1 HEMATOCRIT 31.3 % (Below low threshold) Ra nge: 38.5-50.0 MCV 84.6 fL (Normal) Range: 80.0-10 0.0 MCH 29.2 pg (Normal) Range: 27.0-33 .0 MCHC 34.5 g/dl (Normal) Range: 32.0- 36.0 RDW 13.0 % (Normal) Range: 11.0-15. 0 PLATELET COUNT 288 {Thousand/u} (Normal) Range : 140-400 MPV 10.8 fL (Normal) Range: 7.5-12. 5 ABSOLUTE NEUTROPHILS 2838 {cells/uL} (Normal) R dari: [id number] ABSOLUTE LYMPHOCYTES 2460 {cells/uL} (Normal) R dari: [phone] ABSOLUTE MONOCYTES 534 {cells/uL} (Normal) Rang e: 200-950 ABSOLUTE EOSINOPHILS 108 {cells/uL} (Normal) Ra nge: 15-500 ABSOLUTE BASOPHILS 60 {cells/uL} (Normal) Range : 0-200 NEUTROPHILS 47.3 % (Normal) LYMPHOCYTES 41.0 % (Normal) MONOCYTES 8.9 % (Normal) EOSINOPHILS 1.8 % (Normal) BASOPHILS 1.0 % (Normal) [id number]:47 [[facility]] TSH, 3RD GENERATION TSH 1.84 {MIU/L} (Normal) Range: 0. 40-4.50 :47 [[facility]] HEMOGLOBIN A1c Comments: REPORT C OMMENT:FASTING:YES HEMOGLOBIN A1c 7.3 {%_of_total} (Above high th reshold) Range: <5.7 Comments: For someone without known diabetes, a hemoglobin U1hvvwmh of 6.5% or greater indicates that they may have diabetes and this should be confirmed with a follow-up test. For someone with known diabetes, a value <7% indicates that their diabetes is well controlled and a value greater than or equal to 7% indicates suboptimal control. A1c targets should be individualized based on duration of diabetes, age, comorbid conditions, and other considerations. Currently, no consensus exists regarding use ofhemoglobin A1c for diagnosis of diabetes for children. Plan of Care Name Dates Details Planned Observations Planned Goals not documented Planned Encounters Nephrology Referral Appointment; LOLA DALLAS M.D. On: 06-Oct-2019 10:30 Instructions Name Dates Details Instructions not documented [...] not documented On: 01-Sep-2018 10:30 Appointment; SON MINER M.D. Encounter Diagnosis: Problem not documented On: 15-Sep-2018 15:00 Appointment; SON MINER M.D. Encounter Diagnosis: Problem not documented On: 12-Oct-2018 14:00 Appointment; BOZENA OLIVAREZ RD Encounter Diagnosis: Problem not documented On: 19-Oct-2018 13:00 Appointment; SON MINER M.D. Encounter Diagnosis: Problem not documented On: 16-Nov-2018 15:15 Appointment; LOLA DALLAS M.D. Encounter Diagnosis: Problem not documented On: 23-Nov-2018 14:15 Appointment; SON MINER M.D. Encounter Diagnosis: Problem not documented On: 30-Nov-2018 10:00 Appointment; SON MINER M.D. Encounter Diagnosis: Problem not documented On: 28-Dec-2018 10:30 Appointment; LOLA DALLAS M.D. Encounter Diagnosis: Problem not documented On: 05-Jan-2019 13:15 Appointment; LOAL DALLAS M.D. Encounter Diagnosis: Problem not documented On: 11-Feb-2019 14:00 Appointment; LOLA DALLAS M.D. Encounter Diagnosis: Problem not documented On: 02-Mar-2019 9:00 Appointment; SON MINER M.D. Encounter Diagnosis: Problem not documented On: 02-Mar-2019 16:15 Appointment; LOLA DALLAS M.D. Encounter Diagnosis: Problem not documented On: 14-Apr-2019 10:30 Appointment; LOLA DALLAS M.D. Encounter Diagnosis: Problem not documented On: 07-Jul-2019 16:00
--- OUTSIDE RECORDS SUMMARY | 2019-09-17 12:51 | XMS REPORT | Summary of Care ---
Author Author KADEEM DALLAS M.D. Organization Unknown Address Unknown Phone Unavailable Care Team Providers Care Bibliographic Services Specialist Name Role Phone LOLA DALLAS M.D. Unavailable Unavailable BURT SNYDER [place], LOLA Arora Unavailable Unavailable SHER FARRIS [place], BOZENA Arora Unavailable Unavailable Son Smith MD [...] Status: Active Hypercholesterolemia (272.0, E78.00) Status: Active Medications Name Dates Details Lisinopril 10 MG Oral Tablet TAKE ONE TABLET BY MOUTH DAILY Quantity: 90 LOLA DALLAS M.D. * Start : 24-Feb-2019 Active Pravastatin Sodium 40 MG Oral Tablet [...] M.D. * Start : 24-Feb-2019 Active Creon 18303 UNIT Oral Capsule Delayed Release Particles TAKE 1 TABLET DAILY WITH EVENING MEAL * Refills: 0 Active NovoLIN N ReliOn 100 UNIT/ML Subcutaneous Suspension INJECT 40 UNITS AT BEDTIME * Refills: 0 Active 10 ML Vial Iron TABS TAKE 1 TABLET DAILY * Refills: 0 Active Accu-Chek Andie Plus w/Device Kit USE DIRECTED, (MAY SUBSTITUTE CONTOUR PLUS GLUCOMETER) * Quantity: 1 Refills: 0 LOLA DALLAS M.D. * Start : 14-May-2019 Active Accu-Chek Andie In Vitro Solution USE DIRECTED. * Quantity: 100 Refills: 1 LOLA DALLAS M.D. * Start : 14-May-2019 Active Accu-Chek Andie Plus In Vitro Strip USE 1 STRIP TO CHECK BLOOD SUGAR 5 TIMES DAILY DIRECTED * Quantity: 450 Refills: 1 LOLA DALLAS M.D. * Start : 14-May-2019 Active Accu-Chek Softclix Lancets Check blood sugar five times daily * Quantity: 450 Refills: 1 BURT Espana, LOLA * Start : 14-May-2019 Active Allergies and Adverse Reactions Name Dates Details Dairy (Allergy) Status: Active Past Medical History Name Dates Details History of hyperlipidemia (V12.29, Z86.3 9) Status: Resolved History of Lactose intolerance (271.3, E 73.9) Status: Resolved History of peripheral neuropathy (V12.49 , Z86.69) Status: Resolved History of type 2 diabetes mellitus (V12 .29, Z86.39) Status: Resolved Procedures Procedure Dates Details [[facility]] CBC (INCLUDES DIFF/PLT) Date: 07-Jul-2019 [QL] CMP W/EGFR Date: 07-Jul-2019 [QL[facility]] HEMOGLOBIN A1c Date: 07-Jul-2019 [QL] LIPID PANEL Date: 07-Jul-2019 [QL] MICROALBUMIN, RANDOM URINE (W/CREATININE) Date: [QL] TSH, 3RD GENERATION Date: 07-Jul-2019 Immunization Name Dates Details Zoster (Zostavax) on: May-2016 Tdap on: May-2017 Influenza, seasonal, injectable on: 09-Feb-2018 Prevnar 13 Intramuscular Suspension on: 10-Jun-2018 Shingrix 50 MCG Intramuscular Suspension Reconstituted on: 10-Jul-2018 Shingrix 50 MCG Intramuscular Suspension Reconstituted on: 09-Sep-2018 Influenza, seasonal, injectable on: 27-Sep-2019 Family History Name Dates Details Family history of cerebrovascular accide nt (CVA) (V17.1, Z82.3) Status: Active Name Dates Details Family history of malignant neoplasm of colon (V16.0, Z80.0) Status: Active Family history of type 2 diabetes [facility] (V18.0, Z83.3) Status: Active Family history [...] Position: Sitting Heart Rate 62 /min Status: [id number] Systolic blood pressure 143 mm[Hg] Status: Comments [...] a day? Results Date Description Value Details Results not documented Plan of Care Name Dates Details Planned Observations Planned Goals not documented Planned Encounters Appointment; LOLA DALLAS M.D. On: 06-Oct-2019 10:30 Interventions Provided Medication Changes* Januvia 100 MG Oral Tablet - Start * NovoLIN R ReliOn 100 UNIT/ML Injection Solution - Start Labs/Procedures/Imaging* [[facility]] CBC (INCLUDES DIFF/PLT); To Be Done: 07 Jul 2019 * [[facility]] CMP W/EGFR; To Be Done: 07 Jul 2019 * [[facility]] HEMOGLOBIN A1c; To Be Done: 07 Jul 2019 * [[facility]] LIPID PANEL; To Be Done: 07 Jul 2019 * [[facility]] MICROALBUMIN, RANDOM URINE (W/CREATININE); To Be Done: 07 Jul 2019 * [[facility]] TSH, 3RD GENERATION; To Be Done: 07 Jul 2019 Follow-ups/Referrals* Follow-up visit in 3 months; Done: 07 Jul 2019 Plan* Continue current medications same. Request labwork. RTC in three months. Instructions Name Dates Details Instructions not documented [...] not documented On: 02-Mar-2019 9:00 Appointment; SON MSITH M.D. Encounter Diagnosis: Problem not documented On: 02-Mar-2019 16:15 Appointment; LOLA DALLAS M.D. Encounter Diagnosis: Problem not documented On: 14-Apr-2019 10:30 Appointment; LOLA DALLAS M.D. Encounter Diagnosis: Problem not documented On: 07-Jul-2019 16:00
--- OUTSIDE RECORDS SUMMARY | 2019-09-17 12:51 | XMS REPORT | Summary of Care ---
Author Author KADEEM DLALAS M.D. Organization Unknown Address Unknown Phone Unavailable Care Team Providers Care Transportation Department Supervisor Name Role Phone LOLA DALLAS M.D. Unavailable Unavailable BURT SNYDER [place], LOLA Arora Unavailable Unavailable SHER FARRIS [place], BOZENA Arora Unavailable Unavailable Son Smith MD [...] TAKE 1 TABLET DAILY * Refills: 0 M.A. Active Multi-Vitamin TABS TAKE 1 TABLET DAILY. * Refills: 0 M.A. Active Furosemide 20 MG Oral Tablet TAKE ONE TABLET BY MOUTH DAILY (TAKE IN THE MORNING) * Quantity: 90 Refills: 2 LOLA DALLAS M.D. * Start : 23-Feb-2019 Active hydroCHLOROthiazide 12.5 MG Oral Capsule TAKE ONE CAPSULE BY MOUTH DAILY * Quantity: 90 Refills: 1 LOLA DALLAS M.D. * Start : 24-Feb-2019 Active Creon 07291 UNIT Oral Capsule Delayed Release Particles TAKE 1 TABLET DAILY WITH EVENING MEAL * Refills: 0 M.A. Active NovoLIN N ReliOn 100 UNIT/ML Subcutaneous Suspension INJECT 40 UNITS AT BEDTIME * Refills: 0 M.A. Active 10 ML Vial Iron TABS TAKE 1 TABLET DAILY * Refills: 0 M.A. Active Accu-Chek Andie Plus w/Device Kit USE DIRECTED, (MAY SUBSTITUTE CONTOUR PLUS GLUCOMETER) * Quantity: 1 Refills: 0 BURT Espan[place], LOLA * Start : 14-May-2019 Active Accu-Chek Andie In Vitro Solution USE DIRECTED. * Quantity: 100 Refills: 1 BURT Ryder.Emily., LOLA * Start : 14-May-2019 Active Accu-Chek Andie Plus In Vitro Strip USE 1 STRIP TO CHECK BLOOD SUGAR 5 TIMES DAILY DIRECTED * Quantity: 450 Refills: 1 BURT Ryder.D., LOLA * Start : 14-May-2019 Active Accu-Chek Softclix Lancets Check blood sugar five times daily * Quantity: 450 Refills: 1 BURT M.D., LOLA * Start : 14-May-2019 Active Allergies [...] Eye Exam (Diabetic) Positive Diabetic Eye Screening [id number] (Abnormal) :47 [[facility] OF [facility]] LIPID PANEL CHOLESTEROL, TOTAL 133 [...] factors. LDL-C is now calculated using the Grover-Davis calculation, which is a validated novel method providing better accuracy than the Friedewald equation in the estimation of LDL- C. Grover SS et al. JANAK. 2013;310(19): 6128-5535 (http ://education.e-Go aeroplanes.NetPayment/faq/MPG870) CHOL/HDLC RATIO 3.5 {CALC} (Normal) Range: <5.0 [...] is approximately 13% higher for peopleidentified as -Paraguayan. eGFR NON- 30 {ML/MIN/1.7} (Belo w low [...] 10-35 ALT 19 u/l (Normal) Range: 9-46 [id number]:47 [[facility]] CBC (INCLUDES DIFF/PLT) WHITE BLOOD CELL COUNT [...] ABSOLUTE NEUTROPHILS 2838 {cells/uL} (Normal) R dari: 9668-1093 ABSOLUTE LYMPHOCYTES 2460 {cells/uL} (Normal) R dari: 850-3900 ABSOLUTE MONOCYTES 534 {cells/uL} (Normal) Rang e: 200-950 ABSOLUTE EOSINOPHILS 108 {cells/uL} (Normal) Ra nge: 15-500 ABSOLUTE BASOPHILS 60 {cells/uL} (Normal) Range : 0-200 NEUTROPHILS 47.3 % (Normal) LYMPHOCYTES 41.0 % (Normal) MONOCYTES 8.9 % (Normal) EOSINOPHILS 1.8 % (Normal) BASOPHILS 1.0 % (Normal) :47 [[facility] OF [facility]] TSH, 3RD GENERATION TSH 1.84 {MIU/L} (Normal) Range: 0. 40-4.50 :47 [[facility] OF [facility]] HEMOGLOBIN A1c Comments: REPORT C OMMENT:FASTING:YES HEMOGLOBIN A1c 7.3 {%_of_total} (Above high th reshold) Range: <5.7 Comments: For someone without known diabetes, a hemoglobin G9nlxztd of 6.5% or greater indicates that they [...] Problem not documented On: 30-Jul-2018 11:00 Appointment; LLOA DALLAS M.D. Encounter Diagnosis: Problem not documented [...] not documented On: 02-Mar-2019 9:00 Appointment; SON SMITH M.D. Encounter Diagnosis: Problem not documented On: 02-Mar-2019 16:15 Appointment; LOLA DALLAS M.D. Encounter Diagnosis: Problem not documented On: 14-Apr-2019 10:30 Appointment; LOLA DALLAS M.D. Encounter Diagnosis: Problem not documented On: 07-Jul-2019 16:00
--- OUTSIDE RECORDS SUMMARY | 2019-09-17 12:51 | XMS REPORT | Summary of Care ---
Author KADEEM Manning M.A. Organization Unknown Address [facility] Phone Unavailable Care Team Providers Care Neurology Director Name Role Phone LOLA DALLAS M.D. Unavailable Yaritza Ness M.A. Unavailable Unavailable BURT SNYDER [place], LOLA Arora Unavailable Unavailable SHER FARRIS [place], BOZENA Arora Unavailable Unavailable Son Miner MD Unavailable [...] M.D. * Start : 24-Feb-2019 Active Creon 79998 UNIT Oral Capsule Delayed Release Particles TAKE [...] Resolved Procedures Procedure Dates Details [[facility]] BASIC METABOLIC PANEL W/EGFR Date: 12-Jul-2019 Immunization [...] Active Family history of type 2 diabetes [facility] [place] (V18.0, Z83.3) Status: Active Family history [...] Eye Exam (Diabetic) Positive Diabetic Eye Screening [id number] 9 (Abnormal) :47 [[facility]] LIPID PANEL CHOLESTEROL, TOTAL 133 mg/dl (Normal) [...] C. Grover FISCHER et al. JANAK. 2013;310(19): 2426-3413 (http ://education.Judicata/faq/SXO145) CHOL/HDLC RATIO 3.5 {CALC} (Normal) Range: <5.0 [...] is approximately 13% higher for peopleidentified as -Guatemalan. eGFR NON- 30 {ML/MIN/1.7} (Belo w low [...] ABSOLUTE NEUTROPHILS 2838 {cells/uL} (Normal) R dari: 8159-1814 ABSOLUTE LYMPHOCYTES 2460 {cells/uL} (Normal) R dari: 850-3900 ABSOLUTE MONOCYTES 534 {cells/uL} (Normal) Rang e: 200-950 ABSOLUTE EOSINOPHILS 108 {cells/uL} (Normal) Ra nge: 15-500 ABSOLUTE BASOPHILS 60 {cells/uL} (Normal) Range : 0-200 NEUTROPHILS 47.3 % (Normal) LYMPHOCYTES 41.0 % (Normal) MONOCYTES 8.9 % (Normal) EOSINOPHILS 1.8 % (Normal) BASOPHILS 1.0 % (Normal) [id number]:47 [[facility]] TSH, 3RD GENERATION TSH 1.84 {MIU/L} (Normal) Range: 0. 40-4.50 :47 [[facility]] HEMOGLOBIN A1c Comments: REPORT C OMMENT:FASTING:YES HEMOGLOBIN A1c 7.3 {%_of_total} (Above high th reshold) Range: <5.7 Comments: For someone without known diabetes, a hemoglobin T3fcxtdv of 6.5% or greater indicates that they [...] Problem not documented On: 28-Dec-2018 10:30 Appointment; LOAL DALLAS M.D. Encounter Diagnosis: Problem [...]
--- OUTSIDE RECORDS SUMMARY | 2019-09-17 12:51 | XMS REPORT | Summary of Care ---
Author Author KADEEM Roman LVN Organization Unknown Address Unknown Phone Unavailable Care Team Providers Care Cathode Maker Name Role Phone LOLA DALLAS M.D. Unavailable Unavailable Griselda Roman LVN Unavailable Unavailable BURT SNYDER [place], LOLA Arora Unavailable Unavailable SHER FARRIS [place], BOZENA Arora Unavailable Unavailable Son Smith MD [...] foot, unspecified type (730.27, M86.9) Status: Active Diabetes mellitus type 2, controlled (25 0.00, E11.9) Status: Active Abdominal pain (789.00, R10.9) Status: Active Chronic diarrhea of unknown origin (787. 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 * Refills: 0 Active Creon 75070 UNIT Oral Capsule Delayed Release Particles TAKE 1 TABLET DAILY WITH EVENING MEAL * Refills: 0 Active NovoLIN N ReliOn 100 UNIT/ML Subcutaneous Suspension INJECT 40 UNITS AT BEDTIME * Refills: 0 Active 10 ML Vial Iron TABS TAKE 1 TABLET DAILY * Refills: 0 Active Furosemide 20 MG Oral Tablet TAKE ONE TABLET BY MOUTH DAILY (TAKE IN THE MORNING) * Quantity: 90 Refills: 2 BURT Espan[place], LOLA * Start : 23-Feb-2019 Active BD Insulin Syringe U/F 30G X 1/2" 1 ML USE DIRECTED * Quantity: 450 Refills: 1 BURT [place], LOLA * Start : 23-Nov-2018 Active Accu-Chek Andie Plus In Vitro Strip USE 1 STRIP TO CHECK BLOOD SUGAR 5 TIMES DAILY DIRECTED * Quantity: 450 Refills: 1 BURT [place], LOLA * Start : 14-May-2019 Active Accu-Chek Softclix Lancets Check blood sugar five times daily * Quantity: 450 Refills: 1 BURT [place]span[place], LOLA * Start : 14-May-2019 Active Accu-Chek Andie In Vitro Solution USE DIRECTED. * Quantity: 100 Refills: 1 BURT [place]span[place], LOLA * Start : 14-May-2019 Active Accu-Chek Andie Plus w/Device Kit USE DIRECTED, (MAY SUBSTITUTE CONTOUR PLUS GLUCOMETER) * Quantity: 1 Refills: 0 BURT [place]span[place], LOLA * Start : 14-May-2019 Active hydroCHLOROthiazide 12.5 MG Oral Capsule TAKE ONE CAPSULE BY MOUTH DAILY * Quantity: 90 Refills: 1 LOLA DALLAS M.D. * Start : 24-Feb-2019 Active Allergies and Adverse Reactions Name Dates [...] smoker Vital Signs Date Test Result Details No Known Vitals to report Results Date Description Value Details Results not documented Plan of Care Name Dates Details Planned Observations Planned Goals not documented Planned Encounters Appointment; LOLA DALLAS M.D. On: 08-Jun-2019 10:30 Interventions Provided Medication Changes* BD Pen Needle Short U/F 31G X 8 MM - Renew Instructions Name Dates Details Instructions not documented [...] not documented On: 30-Nov-2018 10:00 Appointment; SON SIMTH M.D. Encounter Diagnosis: Problem not documented On: [...]
--- OUTSIDE RECORDS SUMMARY | 2019-09-17 12:51 | XMS REPORT | Summary of Care ---
Author KADEEM Morel Organization Unknown Address Unknown Phone Unavailable Care Team Providers Care Basket Person Name Role Phone LOLA DALLAS M.D. Unavailable Unavailable BURT SNYDER [place], LOLA Arora Unavailable Unavailable SHER FARRIS [place], BOZENA Arora Unavailable Unavailable Son Smith MD [...] MOUTH DAILY * Quantity: 90 Refills: 1 BURT [place], LOLA * Start : 24-Feb-2019 Active Creon 63583 UNIT Oral Capsule Delayed Release Particles TAKE [...] times daily * Quantity: 450 Refills: 1 LOLA DALLAS M.D. * Start : 14-May-2019 Active Allergies and [...] Active Family history of type 2 diabetes [facility] (V18.0, Z83.3) Status: Active Family history [...] Planned Encounters Appointment; LOLA DALLAS M.D. On: 07-Jul-2019 16:00 Instructions Name Dates Details Instructions not documented [...] Problem not documented On: 05-Jan-2019 13:15 Appointment; LLOA DALLAS M.D. Encounter Diagnosis: Problem not documented On: 11-Feb-2019 14:00 Appointment; LOLA DALLAS M.D. Encounter Diagnosis: Problem not documented On: 02-Mar-2019 9:00 Appointment; SON SMITH M.D. Encounter Diagnosis: Problem not documented On: 02-Mar-2019 16:15 Appointment; LOLA DALLAS M.D. Encounter Diagnosis: Problem not documented On: 14-Apr-2019 10:30
--- OUTSIDE RECORDS SUMMARY | 2019-09-17 12:51 | XMS REPORT | Summary of Care ---
Author KADEEM Manning M.A. Organization Unknown Address [facility] Phone Unavailable Care Team Providers Care Borematic Machine Operator Name Role Phone LOLA DALLAS M.D. Unavailable Yaritza Ness M.A. Unavailable Unavailable BURT SNYDER [place], LOLA Arora Unavailable Unavailable SHER FARRIS [place], BOZENA Arora Unavailable Unavailable Son Smith MD [...] M.D. * Start : 24-Feb-2019 Active Creon 84674 UNIT Oral Capsule Delayed Release Particles TAKE [...] Espana, LOLA * Start : 14-May-2019 Active Sodium Polystyrene Sulfonate Oral Powder MIX 30 GRAMS IN LIQUID AND DRINK NOW, REPEAT IN 4 HOURS. * Quantity: 60 Refills: 0 LOLA DALLAS M.D. * Start : 12-Jul-2019 Active Allergies and [...] Resolved Procedures Procedure Dates Details [[facility]] BASIC METABOLIC PANEL W/EGFR Date: 12-Jul-2019 Immunization [...] Eye Exam (Diabetic) Positive Diabetic Eye Screening [id number] 9 (Abnormal) :47 [[facility]] LIPID PANEL CHOLESTEROL, TOTAL 133 mg/dl (Normal) [...] C. Grover FISCHER et al. JANAK. 2013;310(19): 4450-8442 (http ://education.Provigent/faq/OOF688) CHOL/HDLC RATIO 3.5 {CALC} (Normal) Range: <5.0 NON HDL CHOLESTEROL 95 {MG/DL__CAL} (Normal) Ra nge: <130 Comments: For patients with diabetes plus 1 major ASCVD risk factor, treating to a non-HDL-C goal of <100 mg/dL (LDL-C of <70 mg/dL) is considered a therapeutic option. :47 [[facility]] MICROALBUMIN, RANDOM URINE (W/CREA TININE) Comments: Reference [...] is approximately 13% higher for peopleidentified as -Scottish. eGFR NON- 30 {ML/MIN/1.7} (Belo w low [...] ALT 19 u/l (Normal) Range: 9-46 :47 [[facility]] CBC (INCLUDES DIFF/PLT) WHITE BLOOD CELL [...] ABSOLUTE NEUTROPHILS 2838 {cells/uL} (Normal) R dari: 7220-6305 ABSOLUTE LYMPHOCYTES 2460 {cells/uL} (Normal) R dari: 850-3900 ABSOLUTE MONOCYTES 534 {cells/uL} (Normal) Rang e: 200-950 ABSOLUTE EOSINOPHILS 108 {cells/uL} (Normal) Ra nge: 15-500 ABSOLUTE BASOPHILS 60 {cells/uL} (Normal) Range : 0-200 NEUTROPHILS 47.3 % (Normal) LYMPHOCYTES 41.0 % (Normal) MONOCYTES 8.9 % (Normal) EOSINOPHILS 1.8 % (Normal) BASOPHILS 1.0 % (Normal) :47 [[facility]] TSH, 3RD GENERATION TSH 1.84 {MIU/L} (Normal) Range: 0. 40-4.50 :47 [[facility]] HEMOGLOBIN A1c Comments: REPORT C OMMENT:FASTING:YES HEMOGLOBIN A1c 7.3 {%_of_total} (Above high th reshold) Range: <5.7 Comments: For someone without known diabetes, a hemoglobin C0dwfehx of 6.5% or greater indicates that they [...]
--- OUTSIDE RECORDS SUMMARY | 2019-09-17 12:51 | XMS REPORT | Summary of Care ---
Author KADEEM Manning M.A. Organization Unknown Address [facility] Phone Unavailable Care Team Providers Care Elementary School Music Teacher Name Role Phone LOLA DALLAS M.D. Unavailable Yaritza Ness M.A. Unavailable Unavailable BURT SNYDER [place], LOLA Arora Unavailable Unavailable SHER FARRIS [place], BOZENA Arora Unavailable Unavailable Son Miner MD [...] M.D. * Start : 24-Feb-2019 Active Creon 40684 UNIT Oral Capsule Delayed Release Particles TAKE [...] Z86.39) Status: Resolved Procedures Procedure Dates Details [[facility]] BASIC METABOLIC PANEL W/EGFR Date: 12-Jul-2019 [...] Active Family history of type 2 diabetes [facility] us (V18.0, Z83.3) Status: Active Family [...] Eye Exam (Diabetic) Positive Diabetic Eye Screening [id number] 9 (Abnormal) :47 [[facility]] LIPID PANEL CHOLESTEROL, TOTAL 133 mg/dl [...] C. Grover FISCHER et al. JANAK. 2013;310(19): 8239-0448 (http ://education.Centrana Health/faq/SHT323) CHOL/HDLC RATIO 3.5 {CALC} (Normal) Range: <5.0 [...] is approximately 13% higher for peopleidentified as -Moroccan. eGFR NON- 30 {ML/MIN/1.7} (Belo w low [...] ABSOLUTE NEUTROPHILS 2838 {cells/uL} (Normal) R dari: 2218-9498 ABSOLUTE LYMPHOCYTES 2460 {cells/uL} (Normal) R dari: 850-3900 ABSOLUTE MONOCYTES 534 {cells/uL} (Normal) Rang e: 200-950 ABSOLUTE EOSINOPHILS 108 {cells/uL} (Normal) Ra nge: 15-500 ABSOLUTE BASOPHILS 60 {cells/uL} (Normal) Range : 0-200 NEUTROPHILS 47.3 % (Normal) LYMPHOCYTES 41.0 % (Normal) MONOCYTES 8.9 % (Normal) EOSINOPHILS 1.8 % (Normal) BASOPHILS 1.0 % (Normal) [id number]:47 [[facility]] TSH, 3RD GENERATION TSH 1.84 {MIU/L} (Normal) Range: 0. 40-4.50 :47 [[facility]] HEMOGLOBIN A1c Comments: REPORT C OMMENT:FASTING:YES HEMOGLOBIN A1c 7.3 {%_of_total} (Above high th reshold) Range: <5.7 Comments: For someone without known diabetes, a hemoglobin A5travsd of 6.5% or greater indicates that they [...] of Care Name Dates Details Planned Observations [[facility]] BASIC METABOLIC PANEL W/EGFR On: 13-Jul-2019 Intent Planned Goals not documented Planned Encounters Appointment; LOLA DALLAS M.D. On: 06-Oct-2019 10:30 Interventions Provided Medication Changes* Sodium Polystyrene Sulfonate 15 GM/60ML Oral Suspension - Start Instructions Name Dates Details Instructions not documented [...]
--- OUTSIDE RECORDS SUMMARY | 2019-09-17 12:51 | XMS REPORT | Summary of Care ---
Author Author KADEEM Roman LVN Organization Unknown Address Unknown Phone Unavailable Care Team Providers Care Water Treatment Plant Repairer Name Role Phone LOLA DALLAS M.D. Unavailable Unavailable Griselda Roman LVN Unavailable Unavailable BURT SNYDER [place], LOLA Arora Unavailable Unavailable SHER FARRIS [place], BOZENA Arora Unavailable Unavailable Son Smith MD [...] M.D. * Start : 24-Feb-2019 Active Creon 67062 UNIT Oral Capsule Delayed Release Particles TAKE [...] 4 HOURS. * Quantity: 60 Refills: 0 BURT [place]span[place], LOLA * Start [...] Z86.39) Status: Resolved Procedures Procedure Dates Details [[facility]] BASIC METABOLIC PANEL W/EGFR Date: 12-Jul-2019 [...] Eye Exam (Diabetic) Positive Diabetic Eye Screening [id number] 9 (Abnormal) :47 [[facility]] LIPID PANEL CHOLESTEROL, TOTAL 133 mg/dl [...] LDL- C. Grover FISCHER et al. JANAK. 2013;310(01): 0463-9615 (http ://education.Cubicle/faq/UUA486) CHOL/HDLC RATIO 3.5 {CALC} (Normal) Range: <5.0 NON HDL CHOLESTEROL 95 {MG/DL__CAL} (Normal) Ra nge: <130 Comments: For patients with diabetes plus 1 major ASCVD risk factor, treating to a non-HDL-C goal of <100 mg/dL (LDL-C of <70 mg/dL) is considered a therapeutic option. :47 [[facility]] MICROALBUMIN, RANDOM URINE (W/CREA TININE) Comments: [...] is approximately 13% higher for peopleidentified as -Hungarian. eGFR NON- 30 {ML/MIN/1.7} (Belo w low [...] 10-35 ALT 19 u/l (Normal) Range: 9-46 [id number]:47 [[facility]] CBC (INCLUDES DIFF/PLT) WHITE BLOOD CELL [...] ABSOLUTE NEUTROPHILS 2838 {cells/uL} (Normal) R dari: 8592-0300 ABSOLUTE LYMPHOCYTES 2460 {cells/uL} (Normal) R dari: 850-3900 ABSOLUTE MONOCYTES 534 {cells/uL} (Normal) Rang e: 200-950 ABSOLUTE EOSINOPHILS 108 {cells/uL} (Normal) Ra nge: 15-500 ABSOLUTE BASOPHILS 60 {cells/uL} (Normal) Range : 0-200 NEUTROPHILS 47.3 % (Normal) LYMPHOCYTES 41.0 % (Normal) MONOCYTES 8.9 % (Normal) EOSINOPHILS 1.8 % (Normal) BASOPHILS 1.0 % (Normal) :47 [[facility]] TSH, 3RD GENERATION TSH 1.84 {MIU/L} (Normal) Range: 0. 40-4.50 :47 [[facility]] HEMOGLOBIN A1c Comments: REPORT C OMMENT:FASTING:YES HEMOGLOBIN A1c 7.3 {%_of_total} (Above high th reshold) Range: <5.7 Comments: For someone without known diabetes, a hemoglobin Y6tvdhid of 6.5% or greater indicates that they [...] Interventions Provided Medication Changes* Sodium Polystyrene Sulfonate Oral Powder - Start Instructions Name Dates Details Instructions [...] Problem not documented On: 15-Sep-2018 15:00 Appointment; SNO SMITH M.D. Encounter Diagnosis: Problem not documented [...]
--- OUTSIDE RECORDS SUMMARY | 2019-09-17 12:51 | XMS REPORT | Summary of Care ---
Author KADEEM Maki Organization Unknown Address [facility] Phone Unavailable Care Team Providers Care Editor Trade Journal Name Role Phone LOLA DALLAS M.D. Unavailable Unavailable BURT SNYDER [place], LOLA Arora Unavailable Unavailable SHER FARRIS [place], BOZENA Arora Unavailable Unavailable Son Smith MD [...] 4 due to type 2 diabetes tre tutatyana (250.40, E11.22) Status: Active Diabetes mellitus type 2, controlled (25 0.00, E11.9) Status: Active Essential (primary) hypertension (401.9, I10) Status: Active Hypercholesterolemia (272.0, E78.00) Status: Active Hyperkalemia (276.7, E87.5) Status: Active Medications Name Dates Details Pravastatin Sodium 40 MG Oral Tablet TAKE 1 TABLET BY MOUTH EVERY DAY DIRECTED Quantity: 90 ALIYA DALLAS M.D.OLD * Start : 30-Nov-2018 Active Pantoprazole Sodium 40 MG Oral Tablet Delayed Release TAKE 1 TABLET DAILY * Quantity: 90 Refills: 1 LOLA DALLAS M.D. Active Gabapentin 100 MG Oral Capsule TAKE 1 CAPSULE EVERY 8 HOURS * Quantity: 270 Refills: 1 ALIYA DALLAS M.D.OLD * Start : 10-Jun-2018 Active Januvia 100 [...] EACH MEAL. * Quantity: 2 Refills: 6 ALIYA DALLAS M.D.OLD * Start : 23-Nov-2018 Active 10 ML Vial BD Insulin Syringe U/F 30G X 1/2" 1 ML USE DIRECTED * Quantity: 450 Refills: 1 ALIYA DALLAS M.D.OLD * Start : 23-Nov-2018 Active Colestipol HCl - 1 GM Oral Tablet TAKE 1 TABLET DAILY * Refills: 0 M.A. Active Multi-Vitamin TABS TAKE 1 TABLET DAILY. * Refills: 0 M.A. Active Furosemide 20 MG Oral Tablet TAKE ONE TABLET BY MOUTH DAILY (TAKE IN THE MORNING) * Quantity: 90 Refills: 2 ALIYA DALLAS M.D.OLD * Start : 23-Feb-2019 Active hydroCHLOROthiazide 12.5 MG Oral Capsule TAKE ONE CAPSULE BY MOUTH DAILY * Quantity: 90 Refills: 1 LOLA DALLAS M.D. * Start : 24-Feb-2019 Active Creon 81076 UNIT Oral Capsule Delayed Release Particles TAKE [...] Z86.39) Status: Resolved Procedures Procedure Dates Details [[facility]] BASIC METABOLIC PANEL W/EGFR Date: 12-Jul-2019 [...] Eye Exam (Diabetic) Positive Diabetic Eye Screening [id number] 9 (Abnormal) :47 [[facility]] LIPID PANEL CHOLESTEROL, TOTAL 133 mg/dl [...] C. Grover FISCHER et al. JANAK. 2013;310(19): 3982-4330 (http ://EyeEm.Alector/faq/MPH244) CHOL/HDLC RATIO 3.5 {CALC} (Normal) Range: <5.0 [...] is approximately 13% higher for peopleidentified as -Burundian. eGFR NON- 30 {ML/MIN/1.7} (Belo w low [...] 10-35 ALT 19 u/l (Normal) Range: 9-46 [id number] [[facility]] CBC (INCLUDES DIFF/PLT) WHITE BLOOD CELL COUNT [...] ABSOLUTE NEUTROPHILS 2838 {cells/uL} (Normal) R dari: 9833-2296 ABSOLUTE LYMPHOCYTES 2460 {cells/uL} (Normal) R dari: 850-3900 ABSOLUTE MONOCYTES 534 {cells/uL} (Normal) Rang e: 200-950 ABSOLUTE EOSINOPHILS 108 {cells/uL} (Normal) Ra nge: 15-500 ABSOLUTE BASOPHILS 60 {cells/uL} (Normal) Range : 0-200 NEUTROPHILS 47.3 % (Normal) LYMPHOCYTES 41.0 % (Normal) MONOCYTES 8.9 % (Normal) EOSINOPHILS 1.8 % (Normal) BASOPHILS 1.0 % (Normal) [id number] [[facility]] TSH, 3RD GENERATION TSH 1.84 {MIU/L} (Normal) Range: 0. 40-4.50 [id number] [[facility]] HEMOGLOBIN A1c Comments: REPORT C OMMENT:FASTING:YES HEMOGLOBIN A1c 7.3 {%_of_total} (Above high th reshold) Range: <5.7 Comments: For someone without known diabetes, a hemoglobin B0oxpupg of 6.5% or greater indicates that they [...] DALLAS M.D. On: 06-Oct-2019 10:30 Interventions Provided Follow-ups/Referrals* Nephrology Referral; To Be Done: 12 Jul 2019 Instructions Name Dates Details Instructions not documented [...]
--- OUTSIDE RECORDS SUMMARY | 2019-09-17 12:52 | XMS REPORT | Summary of Care ---
Author KADEEM Manning M.A. Organization Unknown Address [facility] Phone Unavailable Care Team Providers Care Supervisor [employer] Name Role Phone LOLA DALLAS M.D. Unavailable Yaritza Ness M.A. Unavailable Unavailable BURT SNYDER [place], LOLA Arora Unavailable Unavailable SHER FARRIS [place], BOZENA Arora Unavailable Unavailable Son Smith MD [...] Tablet TAKE 1 TABLET DAILY * Quantity: 90 Refills: 1 LOLA DALLAS M.D. Active Multi-Vitamin TABS TAKE 1 TABLET DAILY. [...] M.D. * Start : 24-Feb-2019 Active Creon 80332 UNIT Oral Capsule Delayed Release Particles TAKE [...] TWO DOSES. * Quantity: 240 Refills: 0 LOLA DALLAS M.D. * Start : 14-Jul-2019 Active Lokelma 5 GM Oral Packet 1 PACKET DAILY- PRESCRIBED BY RENAL * Refills: 0 Active Allergies and Adverse Reactions Name Dates [...] Eye Exam (Diabetic) Positive Diabetic Eye Screening [id number] (Abnormal) :47 [[facility]] LIPID PANEL CHOLESTEROL, TOTAL 133 mg/dl (Normal) [...] C. Grover FISCHER et al. JANAK. 2013;310(19): 0453-0438 (http ://[employer]/faq/LXT763) CHOL/HDLC RATIO 3.5 {CALC} (Normal) Range: <5.0 [...] patient to bewithin a diagnostic category. :47 [[facility]] CMP W/EGFR GLUCOSE 73 mg/dl (Normal) Range: 65-99 Comments: Fasting reference interval UREA NITROGEN (BUN) 44 mg/dl (Above high thresh old) Range: 7-25 Comments: Verified by repeat analysis. CREATININE 2.19 mg/dl (Above high threshol d) Range: 0.70-1.25 Comments: For patients >49 years of age, the reference limitfor Creatinine is approximately 13% higher for peopleidentified as -Polish. eGFR NON- 30 {ML/MIN/1.7} (Belo w low [...] 10-35 ALT 19 u/l (Normal) Range: 9-46 [id number]:47 [[facility]] CBC (INCLUDES DIFF/PLT) WHITE BLOOD CELL COUNT [...] ABSOLUTE NEUTROPHILS 2838 {cells/uL} (Normal) R dari: [id number] ABSOLUTE LYMPHOCYTES 2460 {cells/uL} (Normal) R dari: [phone] ABSOLUTE MONOCYTES 534 {cells/uL} (Normal) Rang e: 200-950 ABSOLUTE EOSINOPHILS 108 {cells/uL} (Normal) Ra nge: 15-500 ABSOLUTE BASOPHILS 60 {cells/uL} (Normal) Range : 0-200 NEUTROPHILS 47.3 % (Normal) LYMPHOCYTES 41.0 % (Normal) MONOCYTES 8.9 % (Normal) EOSINOPHILS 1.8 % (Normal) BASOPHILS 1.0 % (Normal) :47 [[facility]] TSH, 3RD GENERATION TSH 1.84 {MIU/L} (Normal) Range: 0. 40-4.50 :47 [[facility]] HEMOGLOBIN A1c Comments: REPORT C OMMENT:FASTING:YES HEMOGLOBIN A1c 7.3 {%_of_total} (Above high th reshold) Range: <5.7 Comments: For someone without known diabetes, a hemoglobin U3xacorz of 6.5% or greater indicates that they [...] A1c for diagnosis of diabetes for children. :01 [[facility]] BASIC METABOLIC PANEL W/EGFR Comm ents: REPORT COMMENT:FASTING:YES GLUCOSE 110 mg/dl (Above high threshold ) Range: 65-99 Comments: Fasting reference interval For someone without known diabetes, a glucose valuebetween 100 and 125 mg/dL is consistent withprediabetes and should be confirmed with afollow-up test. UREA NITROGEN (BUN) 47 mg/dl (Above high thresh old) Range: 7-25 CREATININE 2.18 mg/dl (Above high threshol d) Range: 0.70-1.25 Comments: For patients >49 years of age, the reference limitfor Creatinine is approximately 13% higher for peopleidentified as -Polish. eGFR NON- 30 {ML/MIN/1.7} (Belo w low threshold) Range: > OR = 60 eGFR 35 {ML/MIN/1.7} (Below lo w threshold) Range: > OR = 60 BUN/CREATININE RATIO 22 {CALC} (Normal) Range: 6-22 SODIUM 140 mmol/L (Normal) Range: 135- 146 POTASSIUM 5.5 mmol/L (Above high threshol d) Range: 3.5-5.3 CHLORIDE 107 mmol/L (Normal) Range: 98-1 10 CARBON DIOXIDE 24 mmol/L (Normal) Range: 20-32 CALCIUM 8.8 mg/dl (Normal) Range: 8.6-1 0.3 [id number]:10 [[facility]] BASIC METABOLIC PANEL W/EGFR Comm ents: REPORT COMMENT:FASTING:YES GLUCOSE 177 mg/dl (Above high threshold ) Range: 65-99 Comments: Fasting reference interval For someone without known diabetes, a glucosevalue >125 mg/dL indicates that they may havediabetes and this should be confirmed with afollow-up test. UREA NITROGEN (BUN) 38 mg/dl (Above high thresh old) Range: 7-25 CREATININE 1.82 mg/dl (Above high threshol d) Range: 0.70-1.25 Comments: For patients >49 years of age, the reference limitfor Creatinine is approximately 13% higher for peopleidentified as -Polish. eGFR NON- 38 {ML/MIN/1.7} (Belo w low threshold) Range: > OR = 60 eGFR 44 {ML/MIN/1.7} (Below lo w threshold) Range: > OR = 60 BUN/CREATININE RATIO 21 {CALC} (Normal) Range: 6-22 SODIUM 136 mmol/L (Normal) Range: 135- 146 POTASSIUM 4.5 mmol/L (Normal) Range: 3.5- 5.3 CHLORIDE 103 mmol/L (Normal) Range: 98-1 10 CARBON DIOXIDE 24 mmol/L (Normal) Range: 20-32 CALCIUM 8.6 mg/dl (Normal) Range: 8.6-1 0.3 Plan of Care Name Dates Details Planned [...]
--- OUTSIDE RECORDS SUMMARY | 2019-09-17 12:52 | XMS REPORT | Summary of Care ---
Author Author KADEEM Chapman LVN Organization Unknown Address Unknown Phone Unavailable Care Team Providers Care Financial Planning Analyst Name Role Phone FREDRICK JOSUE APRN Unavailable Unavailable BURT [place], LOLA Unavailable Unavailable BURT SNYDER [place], LOLA Arora Unavailable Unavailable SHER FARRIS [place], BOZENA Arora Unavailable Unavailable Son Smith MD [...] Status: Active Hyperkalemia (276.7, E87.5) Status: Active Fever (780.60, R50.9) Status: Active Suspected COVID-19 virus infection (780. 99, R68.89) Status: Active Medications Name Dates Details Pravastatin Sodium 40 MG Oral Tablet TAKE 1 TABLET BY MOUTH EVERY DAY DIRECTED Quantity: 90 LOLA DALLAS M.D. * Start : 30-Nov-2018 Active Pantoprazole Sodium 40 MG Oral Tablet Delayed Release TAKE ONE TABLET BY MOUTH DAILY * Quantity: 90 Refills: 0 LOLA DALLAS M.D. * Start : 18-Aug-2019 Active Gabapentin 100 MG Oral Capsule TAKE [...] IN THE MORNING) * Quantity: 90 Refills: 1 LOLA DALLAS M.D. * Start : 23-Feb-2019 Active hydroCHLOROthiazide 12.5 MG Oral Capsule TAKE ONE CAPSULE BY MOUTH DAILY * Quantity: 90 Refills: 1 LOLA DALLAS M.D. * Start : 24-Feb-2019 Active Creon 40415 UNIT Oral Capsule Delayed Release Particles TAKE [...] DALLAS M.D. * Start : 14-May-2019 Active Sodium Polystyrene [...] Z86.39) Status: Resolved Procedures Procedure Dates Details [Q] SARS-CoV-2 RNA, QUALITATIVE REAL-TIME RT-PCR Date: Immunization Name Dates Details Zoster (Zostavax) on: [...] (finding) Vital Signs Date Test Result Details :28 Systolic blood pressure 147 mm[Hg] Status: Comments : Location: LUE; Position: Sitting Diastolic blood pressure 70 mm[Hg] Status: Comment s: Location: LUE; Position: Sitting [id number] Systolic blood pressure 147 mm[Hg] Status: Comments : Location: LUE; Position: Sitting Diastolic blood pressure 70 mm[Hg] Status: Comment s: Location: LUE; Position: Sitting Body height 69 in Status: Weight 215 lb Status: Body mass index (BMI) [Ratio] 31.75 kg/m2 Status: Body surface area Derived from formula 2.13 m2 S tatus: Body temperature 99.4 f Status: Comments: Me thod: Temporal Heart Rate 79 /min Status: Comments: Lo cation: L Radial; Respiratory rate 16 /min Status: Comments: Qu ality: Normal Results Date Description Value Details [id number] [O] Influenza A and B, Rapid Method (In Office) INFLUENZA A & B Rapid neg (Normal) Plan of Care Name Dates Details Planned Observations Planned Goals not documented Planned Encounters Appointment; LOLA DALLAS M.D. On: 06-Oct-2019 10:30 Interventions Provided Labs/Procedures/Imaging* [Q] SARS-CoV-2 RNA, QUALITATIVE REAL-TIME RT-PCR; To Be Done: 15 Sep 2019 * [O] Influenza A and B, Rapid Method (In Office); Done: 15 Sep 2019 Instructions Name Dates Details Instructions not [...] Diagnosis: Problem not documented On: 07-Jul-2019 16:00 Appointment; FREDRICK JOSUE APRN Encounter Diagnosis: Problem not documented On: 15-Sep-2019 13:15
--- OUTSIDE RECORDS SUMMARY | 2019-09-17 12:52 | XMS REPORT | Summary of Care ---
Author Author KADEEM JOSUE APRN Organization Unknown Address Unknown Phone Unavailable Care Team Providers Care Financial Adviser Name Role Phone LIAT SINGHFREDRICK Unavailable Unavailable BURT [place], LOLA Unavailable Unavailable BURT SNYDER [place], LOLA Arora Unavailable Unavailable SHER FARRIS [place], BOZENA Arora Unavailable Unavailable Son Smith MD [...] M.D. * Start : 24-Feb-2019 Active Creon 48943 UNIT Oral Capsule Delayed Release Particles TAKE [...] [Q] SARS-CoV-2 RNA, QUALITATIVE REAL-TIME RT-PCR Date: [O] Influenza A and B, Rapid Method (In Office) Date: 2019 Immunization Name Dates Details Zoster (Zostavax) on: [...] (finding) Vital Signs Date Test Result Details [id number] Systolic blood pressure 147 mm[Hg] Status: Comments : Location: LUE; Position: Sitting Diastolic blood pressure 70 mm[Hg] Status: Comment s: Location: LUE; Position: Sitting [id number] Systolic blood pressure 147 mm[Hg] Status: Comments [...] ality: Normal Results Date Description Value Details Results not documented Plan of Care Name Dates Details Planned Observations Planned Goals not documented Planned Encounters Appointment; LOLA DALLAS M.D. On: 06-Oct-2019 10:30 Interventions Provided Labs/Procedures/Imaging* [O] Influenza A and B, Rapid Method (In Office); To Be Done: 15 Sep 2019 * [Q] SARS-CoV-2 RNA, QUALITATIVE REAL-TIME RT-PCR; To Be Done: 15 Sep 2019 Instructions Name Dates [...]
--- OUTSIDE RECORDS SUMMARY | 2019-09-17 12:52 | XMS REPORT | Summary of Care ---
Author Author KADEEM DALLAS M.D. Organization Unknown Address Unknown Phone Unavailable Care Team Providers Care Washerette Machine Operator Name Role Phone LOLA DALLAS M.D. Unavailable Unavailable BURT SNYDER [place], LOLA Arora Unavailable Unavailable SHER FARRIS [place], BOZENA Arora Unavailable Unavailable Son Smith MD [...] M.D. * Start : 24-Feb-2019 Active Creon 44245 UNIT Oral Capsule Delayed Release Particles TAKE [...] DIRECTED * Quantity: 450 Refills: 1 BURT Ryder.Víctor, LOLA * Start : 14-May-2019 Active Accu-Chek Softclix Lancets Check blood sugar five times daily * Quantity: 450 Refills: 1 BURT Ryder.Víctor, LOLA * Start : 14-May-2019 Active Sodium Polystyrene Sulfonate 15 GM/60ML Oral Suspension TAKE 30 GM/ 120 mL; REPEAT DOSE IN 4 HOURS. TOTAL TWO DOSES. * Quantity: 240 Refills: 0 BURT [place], LOLA * Start : 14-Jul-2019 Active Allergies and Adverse Reactions Name Dates [...] Eye Exam (Diabetic) Positive Diabetic Eye Screening [id number] 9 (Abnormal) :47 [[facility]] LIPID PANEL CHOLESTEROL, TOTAL 133 mg/dl (Normal) [...] C. Grover FISCHER et al. JANAK. 2013;310(19): 6655-7703 (http ://education.[employer]/faq/IGL868) CHOL/HDLC RATIO 3.5 {CALC} (Normal) Range: <5.0 [...] is approximately 13% higher for peopleidentified as -Ukrainian. eGFR NON- 30 {ML/MIN/1.7} (Belo w low [...] 10-35 ALT 19 u/l (Normal) Range: 9-46 [id number]:47 [[facility]] CBC (INCLUDES DIFF/PLT) WHITE BLOOD CELL [...] ABSOLUTE NEUTROPHILS 2838 {cells/uL} (Normal) R dari: 7030-2792 ABSOLUTE LYMPHOCYTES 2460 {cells/uL} (Normal) R dari: 850-3900 ABSOLUTE MONOCYTES 534 {cells/uL} (Normal) Rang e: 200-950 ABSOLUTE EOSINOPHILS 108 {cells/uL} (Normal) Ra nge: 15-500 ABSOLUTE BASOPHILS 60 {cells/uL} (Normal) Range : 0-200 NEUTROPHILS 47.3 % (Normal) LYMPHOCYTES 41.0 % (Normal) MONOCYTES 8.9 % (Normal) EOSINOPHILS 1.8 % (Normal) BASOPHILS 1.0 % (Normal) :47 [[facility]] TSH, 3RD GENERATION TSH 1.84 {MIU/L} (Normal) Range: 0. 40-4.50 :47 [[facility]] HEMOGLOBIN A1c Comments: REPORT C OMMENT:FASTING:YES HEMOGLOBIN A1c 7.3 {%_of_total} (Above high th reshold) Range: <5.7 Comments: For someone without known diabetes, a hemoglobin Q1oajfct of 6.5% or greater indicates that they [...] of diabetes for children. :01 [[facility]] BASIC METABOLIC PANEL W/EGFR Comm ents: REPORT [...] is approximately 13% higher for peopleidentified as -Ukrainian. eGFR NON- 30 {ML/MIN/1.7} (Belo w low [...] CALCIUM 8.8 mg/dl (Normal) Range: 8.6-1 0.3 [id number]:10 [[facility]] BASIC METABOLIC PANEL W/EGFR Comm ents: REPORT [...] is approximately 13% higher for peopleidentified as -Ukrainian. eGFR NON- 38 {ML/MIN/1.7} (Belo w low [...]
--- OUTSIDE RECORDS SUMMARY | 2019-09-17 12:52 | XMS REPORT | Summary of Care ---
Author Author KADEEM Roman LVN Organization Unknown Address Unknown Phone Unavailable Care Team Providers Care Pet Care Attendant Name Role Phone LOLA DALLAS M.D. Unavailable Unavailable BURT SNYDER [place], LOLA Arora Unavailable Unavailable SHER FARRIS [place], BOZENA Arora Unavailable Unavailable Son Smith MD [...] M.D. * Start : 24-Feb-2019 Active Creon 28397 UNIT Oral Capsule Delayed Release Particles TAKE [...] (finding) Vital Signs Date Test Result Details No Known Vitals to report Results Date Description Value Details Results not documented Plan of Care Name Dates Details Planned Observations Planned Goals not documented Planned Encounters Appointment; LOLA DALLAS M.D. On: 06-Oct-2019 10:30 Interventions Provided Medication Changes* Pantoprazole Sodium 40 MG Oral Tablet Delayed Release - Renew Instructions Name Dates Details Instructions [...]
--- OUTSIDE RECORDS SUMMARY | 2019-09-17 12:52 | XMS REPORT | Summary of Care ---
Author KADEEM Manning M.A. Organization Unknown Address [facility] Phone Unavailable Care Team Providers Care Glass Embosser Name Role Phone LOLA DALLAS M.D. Unavailable Yaritza Ness M.A. Unavailable Unavailable BURT SNYDER [place], LOLA Arora Unavailable Unavailable SHER FARRIS [place], BOZENA Arora Unavailable Unavailable Son Smith MD [...] DALLAS M.D. * Start : 10-Jun-2018 Active Colestipol HCl - 1 GM Oral Tablet TAKE 1 TABLET DAILY * Refills: 0 Active Multi-Vitamin TABS TAKE 1 TABLET DAILY. * Refills: 0 Active Creon 09742 UNIT Oral Capsule Delayed Release Particles TAKE 1 TABLET DAILY WITH EVENING MEAL * Refills: 0 Active Iron TABS TAKE 1 TABLET DAILY * Refills: 0 Active Furosemide 20 MG Oral Tablet TAKE ONE TABLET BY MOUTH DAILY (TAKE IN THE MORNING) * Quantity: 90 Refills: 2 LOLA DALLAS M.D. * Start : 23-Feb-2019 Active Accu-Chek Andie Plus In Vitro Strip [...] DALLAS M.D. * Start : 14-May-2019 Active hydroCHLOROthiazide 12.5 MG Oral Capsule TAKE ONE CAPSULE BY MOUTH DAILY * Quantity: 90 Refills: 1 LOLA DALLAS M.D. * Start : 24-Feb-2019 Active BD Insulin Syringe U/F 30G X 1/2" 1 ML USE DIRECTED * Quantity: 450 Refills: 1 LOLA DALLAS M.D. * Start : 23-Nov-2018 Active BD Pen Needle Short U/F 31G X 8 MM USE 5 A DAY * Quantity: 150 Refills: 2 LOLA DALLAS M.D. * Start : 03-Aug-2018 Active Januvia 100 MG Oral Tablet TAKE ONE TABLET BY MOUTH IN THE MORNING * Quantity: 30 Refills: 6 LOLA DALLAS M.D. * Start : 03-Aug-2018 Active NovoLIN N ReliOn 100 UNIT/ML Subcutaneous Suspension INJECT 40 UNITS AT BEDTIME * Refills: 0 Active 10 ML Vial NovoLIN R ReliOn 100 UNIT/ML Injection Solution INJECT 12 UNITS WITH EACH MEAL. * Quantity: 2 Refills: 6 LOLA DALLAS M.D. * Start : 23-Nov-2018 Active 10 ML Vial Sodium Polystyrene Sulfonate Oral Powder MIX 30 [...] Eye Exam (Diabetic) Positive Diabetic Eye Screening [id number] 9 (Abnormal) :47 [[facility]] LIPID PANEL CHOLESTEROL, TOTAL 133 mg/dl [...] C. Grover SS et al. JANAK. 2013;310(19): 6554-6539 (http ://education.[employer]/faq/IFM290) CHOL/HDLC RATIO 3.5 {CALC} (Normal) Range: <5.0 [...] is approximately 13% higher for peopleidentified as -Croatian. eGFR NON- 30 {ML/MIN/1.7} (Belo w low [...] 10-35 ALT 19 u/l (Normal) Range: 9-46 [id number]:47 [[facility]] CBC (INCLUDES DIFF/PLT) WHITE BLOOD CELL [...] ABSOLUTE NEUTROPHILS 2838 {cells/uL} (Normal) R dari: 0510-6852 ABSOLUTE LYMPHOCYTES 2460 {cells/uL} (Normal) R dari: 850-3900 ABSOLUTE MONOCYTES 534 {cells/uL} (Normal) Rang e: 200-950 ABSOLUTE EOSINOPHILS 108 {cells/uL} (Normal) Ra nge: 15-500 ABSOLUTE BASOPHILS 60 {cells/uL} (Normal) Range : 0-200 NEUTROPHILS 47.3 % (Normal) LYMPHOCYTES 41.0 % (Normal) MONOCYTES 8.9 % (Normal) EOSINOPHILS 1.8 % (Normal) BASOPHILS 1.0 % (Normal) :47 [[facility]] TSH, 3RD GENERATION TSH 1.84 {MIU/L} (Normal) Range: 0. 40-4.50 :47 [[facility]] HEMOGLOBIN A1c Comments: REPORT C OMMENT:FASTING:YES HEMOGLOBIN A1c 7.3 {%_of_total} (Above high th reshold) Range: <5.7 Comments: For someone without known diabetes, a hemoglobin T7qnlxwc of 6.5% or greater indicates that they [...] for diagnosis of diabetes for children. :01 [[facility]] BASIC METABOLIC PANEL W/EGFR Comm ents: REPORT [...] is approximately 13% higher for peopleidentified as -Croatian. eGFR NON- 30 {ML/MIN/1.7} (Belo w low [...] CALCIUM 8.8 mg/dl (Normal) Range: 8.6-1 0.3 Plan of [...]
--- OUTSIDE RECORDS SUMMARY | 2019-09-17 12:52 | XMS REPORT | Summary of Care ---
Author Author KADEEM DALLAS M.D. Organization Unknown Address Unknown Phone Unavailable Care Team Providers Care Room Attendant Name Role Phone LOLA DALLAS M.D. Unavailable Unavailable BURT SNYDER [place], LOLA Arora Unavailable Unavailable SHER FARRIS [place], BOZENA Arora Unavailable Unavailable Son Smith MD [...] BY MOUTH EVERY DAY DIRECTED Quantity: 90 BURT [place], LOLA * Start : 30-Nov-2018 Active Pantoprazole Sodium 40 MG Oral Tablet Delayed Release TAKE 1 TABLET DAILY * Quantity: 90 Refills: 1 LOLA DALLAS M.D. Active Gabapentin 100 MG Oral Capsule TAKE 1 CAPSULE EVERY 8 HOURS * Quantity: 270 Refills: 1 BURT [place], LOLA * Start : 10-Jun-2018 Active Colestipol HCl - 1 GM Oral Tablet TAKE 1 TABLET DAILY * Refills: 0 M.A. Active Multi-Vitamin TABS TAKE 1 TABLET DAILY. * Refills: 0 M.A. Active Creon 64929 UNIT Oral Capsule Delayed Release Particles TAKE 1 TABLET DAILY WITH EVENING MEAL * Refills: 0 M.A. Active Iron TABS TAKE 1 TABLET DAILY * Refills: 0 M.A. Active Furosemide 20 MG Oral Tablet TAKE ONE TABLET BY MOUTH DAILY (TAKE IN THE MORNING) * Quantity: 90 Refills: 2 BURT [place], LOLA * Start : 23-Feb-2019 Active Accu-Chek Andie [...] A DAY * Quantity: 150 Refills: 2 BURT [place], LOLA * Start : 03-Aug-2018 Active Januvia 100 MG Oral Tablet TAKE ONE TABLET BY MOUTH IN THE MORNING * Quantity: 30 Refills: 6 BURT [place], LOLA * Start : 03-Aug-2018 Active NovoLIN N ReliOn 100 UNIT/ML Subcutaneous Suspension INJECT 40 UNITS AT BEDTIME * Refills: 0 M.A. Active 10 ML Vial NovoLIN R ReliOn 100 UNIT/ML Injection Solution INJECT 12 UNITS WITH EACH MEAL. * Quantity: 2 Refills: 6 BURT [place], LOLA * Start : 23-Nov-2018 Active 10 ML [...] Family history of type 2 diabetes mellit (V18.0, Z83.3) Status: Active Family history of [...] Eye Exam (Diabetic) Positive Diabetic Eye Screening [id number] 9 (Abnormal) :47 [[facility]] LIPID PANEL CHOLESTEROL, TOTAL 133 [...] LDL- C. Grover FISCHER et al. JANAK. 2013;310(36): 7531-0004 (http ://education.[employer]/faq/WNW718) CHOL/HDLC RATIO 3.5 {CALC} (Normal) Range: <5.0 NON HDL CHOLESTEROL 95 {MG/DL__CAL} (Normal) Ra nge: <130 Comments: For patients with diabetes plus 1 major ASCVD risk factor, treating to a non-HDL-C goal of <100 mg/dL (LDL-C of <70 mg/dL) is considered a therapeutic option. :47 [[facility]] MICROALBUMIN, RANDOM URINE (W/CREA TININE) Comments: Reference [...] is approximately 13% higher for peopleidentified as -Martiniquais. eGFR NON- 30 {ML/MIN/1.7} (Belo w low [...] 10-35 ALT 19 u/l (Normal) Range: 9-46 [id number]:47 [[facility]] CBC (INCLUDES DIFF/PLT) WHITE BLOOD CELL [...] ABSOLUTE NEUTROPHILS 2838 {cells/uL} (Normal) R dari: 0544-1306 ABSOLUTE LYMPHOCYTES 2460 {cells/uL} (Normal) R dari: 850-3900 ABSOLUTE MONOCYTES 534 {cells/uL} (Normal) Rang e: 200-950 ABSOLUTE EOSINOPHILS 108 {cells/uL} (Normal) Ra nge: 15-500 ABSOLUTE BASOPHILS 60 {cells/uL} (Normal) Range : 0-200 NEUTROPHILS 47.3 % (Normal) LYMPHOCYTES 41.0 % (Normal) MONOCYTES 8.9 % (Normal) EOSINOPHILS 1.8 % (Normal) BASOPHILS 1.0 % (Normal) :47 [[facility]] TSH, 3RD GENERATION TSH 1.84 {MIU/L} (Normal) Range: 0. 40-4.50 :47 [[facility]] HEMOGLOBIN A1c Comments: REPORT C OMMENT:FASTING:YES HEMOGLOBIN A1c 7.3 {%_of_total} (Above high th reshold) Range: <5.7 Comments: For someone without known diabetes, a hemoglobin O3zaygml of 6.5% or greater indicates that they [...] for diagnosis of diabetes for children. :01 [[facility]] BASIC METABOLIC PANEL W/EGFR Comm ents: REPORT [...] is approximately 13% higher for peopleidentified as -Martiniquais. eGFR NON- 30 {ML/MIN/1.7} (Belo w low [...]
--- OUTSIDE RECORDS SUMMARY | 2019-09-17 12:52 | XMS REPORT | Summary of Care ---
Author Author KADEEM Roman LVN Organization Unknown Address Unknown Phone Unavailable Care Team Providers Care Wellness Director Name Role Phone LOLA DALLAS M.D. Unavailable Unavailable Griselda Roman LVN Unavailable Unavailable BURT SNYDER [place], LOLA Arora Unavailable Unavailable SHER FARRIS [place], BOZENA Arora Unavailable Unavailable Son Smith MD [...] M.D. * Start : 24-Feb-2019 Active Creon 14320 UNIT Oral Capsule Delayed Release Particles TAKE [...] Planned Goals not documented Planned Encounters Appointment; FREDRICK JOSUE APRN On: 15-Sep-2019 13:15 Appointment; LOLA DALLAS M.D. On: 06-Oct-2019 10:30 Interventions Provided Medication Changes* Furosemide 20 MG Oral Tablet - Renew * Gabapentin 100 MG Oral Capsule - Renew * hydroCHLOROthiazide 12.5 MG Oral Capsule - Renew * Pantoprazole Sodium 40 MG Oral Tablet Delayed Release - Renew * Pravastatin Sodium 40 MG Oral Tablet - Renew Instructions Name Dates Details Instructions [...] RD Encounter Diagnosis: Problem not documented On: 10-Ayo-2019 13:00 Appointment; SON SMITH M.D. Encounter Diagnosis: [...]
--- OUTSIDE RECORDS SUMMARY | 2019-09-17 12:52 | XMS REPORT | Summary of Care ---
Author KADEEM Manning M.A. Organization Unknown Address [facility] Phone Unavailable Care Team Providers Care Store Assistant Name Role Phone LOLA DALLAS M.D. Unavailable [...] TABLET DAILY. * Refills: 0 Active Creon 71503 UNIT Oral Capsule Delayed Release Particles TAKE [...] Active 10 ML Vial Sodium Polystyrene Sulfonate 15 GM/60ML Oral Suspension TAKE 30 GM/ 120 mL; REPEAT DOSE IN 4 HOURS. TOTAL TWO DOSES. * Quantity: 240 Refills: 0 LOLA DALLAS M.D. * Start : 14-Jul-2019 Active Allergies and Adverse Reactions Name Dates Details Dairy (Allergy) Status: Active Past Medical History Name Dates Details History of hyperlipidemia (V12.29, Z86.3 9) Status: Resolved History of Lactose intolerance (271.3, E 73.9) Status: Resolved History of peripheral neuropathy (V12.49 , Z86.69) Status: Resolved History of type 2 diabetes mellitus (V12 .29, Z86.39) Status: Resolved Procedures Procedure Dates Details [[facility]] BASIC METABOLIC PANEL W/EGFR Date: 14-Jul-2019 Immunization Name Dates Details Zoster (Zostavax) on: [...] Active Family history of type 2 diabetes [facility] (V18.0, Z83.3) Status: Active Family history [...] Eye Exam (Diabetic) Positive Diabetic Eye Screening [id number] (Abnormal) :47 [[facility]] LIPID PANEL CHOLESTEROL, TOTAL 133 mg/dl (Normal) [...] C. Grover FISCHER et al. JANAK. 2013;310(19): 1004-7493 (http ://education.AlignMed/faq/DKW137) CHOL/HDLC RATIO 3.5 {CALC} (Normal) Range: <5.0 [...] is approximately 13% higher for peopleidentified as -[place]. eGFR NON- 30 {ML/MIN/1.7} (Belo w low [...] ABSOLUTE NEUTROPHILS 2838 {cells/uL} (Normal) R dari: [id number] ABSOLUTE LYMPHOCYTES 2460 {cells/uL} (Normal) R dari: [id number] ABSOLUTE MONOCYTES 534 {cells/uL} (Normal) Rang e: 200-950 ABSOLUTE EOSINOPHILS 108 {cells/uL} (Normal) Ra nge: 15-500 ABSOLUTE BASOPHILS 60 {cells/uL} (Normal) Range : 0-200 NEUTROPHILS 47.3 % (Normal) LYMPHOCYTES 41.0 % (Normal) MONOCYTES 8.9 % (Normal) EOSINOPHILS 1.8 % (Normal) BASOPHILS 1.0 % (Normal) :47 [[facility]] TSH, 3RD GENERATION TSH 1.84 {MIU/L} (Normal) Range: 0. 40-4.50 :47 [[facility]] HEMOGLOBIN A1c Comments: REPORT C OMMENT:FASTING:YES HEMOGLOBIN A1c 7.3 {%_of_total} (Above high th reshold) Range: <5.7 Comments: For someone without known diabetes, a hemoglobin I7iotzhp of 6.5% or greater indicates that they [...] of diabetes for children. :01 [[facility]] BASIC METABOLIC PANEL W/EGFR Comm ents: REPORT [...] is approximately 13% higher for peopleidentified as -[place]. eGFR NON- 30 {ML/MIN/1.7} (Belo w low [...] of Care Name Dates Details Planned Observations [QL] BASIC METABOLIC PANEL W/EGFR On: 15-Jul-2019 Intent Planned Goals not documented Planned Encounters [...]
--- OUTSIDE RECORDS SUMMARY | 2019-09-17 12:52 | XMS REPORT | Summary of Care ---
Author Author KADEEM Roman LVN Organization Unknown Address Unknown Phone Unavailable Care Team Providers Care Tanning Wheel Filler Name Role Phone LOLA DALLAS M.D. Unavailable Unavailable Griselda Roman LVN Unavailable Unavailable BURT SNYDER [place], LOLA Arora Unavailable Unavailable SHER FARRIS [place], BOZENA Arora Unavailable Unavailable Son Smith MD [...] M.D. * Start : 24-Feb-2019 Active Creon 23260 UNIT Oral Capsule Delayed Release Particles TAKE [...] Eye Exam (Diabetic) Positive Diabetic Eye Screening [id number] (Abnormal) :47 [[facility]] LIPID PANEL CHOLESTEROL, TOTAL 133 mg/dl [...] C. Grover FISCHER et al. JANAK. 2013;310(19): 2034-1471 (http ://education.Gatheredtable/faq/UEC428) CHOL/HDLC RATIO 3.5 {CALC} (Normal) Range: <5.0 NON HDL CHOLESTEROL 95 {MG/DL__CAL} (Normal) Ra nge: <130 Comments: For patients with diabetes plus 1 major ASCVD risk factor, treating to a non-HDL-C goal of <100 mg/dL (LDL-C of <70 mg/dL) is considered a therapeutic option. :47 [[facility]] MICROALBUMIN, RANDOM URINE (W/CREA TININE) Comments: [...] is approximately 13% higher for peopleidentified as -[place]. eGFR NON- 30 {ML/MIN/1.7} (Belo w low [...] ABSOLUTE NEUTROPHILS 2838 {cells/uL} (Normal) R dari: [id number] ABSOLUTE LYMPHOCYTES 2460 {cells/uL} (Normal) R dari: [phone] ABSOLUTE MONOCYTES 534 {cells/uL} (Normal) Rang e: 200-950 ABSOLUTE EOSINOPHILS 108 {cells/uL} (Normal) Ra nge: 15-500 ABSOLUTE BASOPHILS 60 {cells/uL} (Normal) Range : 0-200 NEUTROPHILS 47.3 % (Normal) LYMPHOCYTES 41.0 % (Normal) MONOCYTES 8.9 % (Normal) EOSINOPHILS 1.8 % (Normal) BASOPHILS 1.0 % (Normal) :47 [[facility]] TSH, 3RD GENERATION TSH 1.84 {MIU/L} (Normal) Range: 0. 40-4.50 :47 [[facility]] HEMOGLOBIN A1c Comments: REPORT C OMMENT:FASTING:YES HEMOGLOBIN A1c 7.3 {%_of_total} (Above high th reshold) Range: <5.7 Comments: For someone without known diabetes, a hemoglobin U0jquobu of 6.5% or greater indicates that they [...] for diagnosis of diabetes for children. :01 [[facility]] BASIC METABOLIC PANEL W/EGFR Comm ents: [...] is approximately 13% higher for peopleidentified as -[place]. eGFR NON- 30 {ML/MIN/1.7} (Belo w low [...] On: 06-Oct-2019 10:30 Interventions Provided Medication Changes* Colestipol HCl - 1 GM Oral Tablet - Renew Instructions Name Dates [...]
[2019-09-17] MEDS ORDERED: PIPER-TAZ 3.375 GM 50 ML IV STA (13:03)
[2019-09-17] MEDS ORDERED: SODIUM CHLORIDE 0.9% 1000ML 1,000 ML IV STA (13:03)
[2019-09-17 13:44] LABS: BASOPHILS % 0.1 % (0.0-1.0); EOSINOPHILS # (AUTO) 0.1 (0.0-0.4); EOSINOPHILS % 0.3 % (0.0-6.0); HEMATOCRIT 25.3 % (38.2-49.6); HEMOGLOBIN 8.9 g/dL (14.0-18.0); LYMPHOCYTES # (AUTO) 1.4 (1.0-3.2); LYMPHOCYTES % 7.9 % (18.0-39.1); MEAN CORPUSCULAR HGB CONC 35.2 g/dL (31-35); MEAN CORPUSCULAR VOLUME 85.2 fL (81-99); MONOCYTES # (AUTO) 1.4 (0.2-0.8); MONOCYTES % 7.9 % (4.4-11.3); NEUTROPHILS # (AUTO) 14.3 (2.1-6.9); NEUTROPHILS % 82.8 % (38.7-80.0); PLATELET COUNT 259 x10e3/uL (140-360); RED BLOOD COUNT 2.97 x10e6/uL (4.3-5.7); RED CELL DISTRIBUTION WIDTH 11.9 % (11.7-14.4)
[2019-09-17] MEDS ORDERED: DEXTROSE 50% SYRINGE 50 ML IV PRN (15:30)
[2019-09-17] MEDS ORDERED: MORPHINE SULFATE 2 MG/ML SYR 1ML IV PRN (15:30)
--- NOTE | 2019-09-17 15:31 | Diagnostic Imaging Report ---
X-ray right foot multiple views History: Possible osteomyelitis. Possibly stepped on something Findings: There is presence of a radiopaque linear object in the ball of the great toe at the tarsometatarsal joint. It seems to penetrate the skin straight up and ends just inferior to the metatarsophalangeal joint. There is an apparent skin defect at the entry site. There is associated significant soft tissue swelling in the entire forefoot. There is lucency suggestive of soft tissue gas. There is presence of additional radiopaque particular matter posterior to this metallic density object in the soft tissues of the sole of the foot underlying the first distal metatarsal. There is no obvious fracture or subluxation. Other bones appear unremarkable. Impression: Findings suggestive of retained metallic density foreign body in the ball of the great toe with associated soft tissue infection and additional findings as described above. Signed by: Errol Alexis MD on 09/17/2019 3:27 PM
[2019-09-17 15:33] LABS: ALBUMIN 2.8 g/dL (3.5-5.0); ALBUMIN/GLOBULIN RATIO 0.7 (0.8-2.0); ANION GAP 16.6 mmol/L (8-16); CALCIUM 8.7 mg/dL (8.4-10.2); CREATININE, SERUM 3.27 mg/dL (0.72-1.25); POTASSIUM 3.6 mmol/L (3.5-5.1)
[2019-09-17] MEDS ORDERED: VANCOMYCIN 1GM/NS 250 ML 250 ML IV ONE (15:45)
[2019-09-17] MEDS: INSULIN LISPRO 100 UNIT/1 ML 3ML VIAL SQ SCH ×2 (16:34→21:00)
--- NOTE | 2019-09-17 16:35 | NUR ---
waiting for food tray
[2019-09-17] MEDS ORDERED: MUPIROCIN 2% OINT 22 GM TUBE TOP ONE (19:00)
[2019-09-17] MEDS ORDERED: LIDOCAINE HCL 1% 2 ML AMP INJ ONE (19:00)
[2019-09-17] MEDS ORDERED: VANCOMYCIN 1GM/NS 250 ML 250 ML IV SCH (19:30)
[2019-09-17 20:00] VITALS: BP 147/65
[2019-09-17] MEDS ORDERED: SODIUM CHLORIDE 0.9% 250ML 250 ML ONE (20:16)
--- NOTE | 2019-09-17 20:19 | Consultation ---
DATE OF CONSULTATION: 09/17/2019 REASON FOR CONSULTATION: Cellulitis right foot with a deep foreign body. HISTORY OF PRESENT ILLNESS: This is a pleasant 69-year-old, who presented to the emergency room after his foot started swelling yesterday, but had some fever x3 days and realized his foot was very swollen. In the emergency room x-rays were taken, was found to have a deep foreign body. He is having minimal pain and tenderness to the right lower extremity, but the foot is very swollen. At this time, he is denying any history of fever, chills, nausea, or vomiting. PAST MEDICAL HISTORY: Remarkable for insulin-dependent diabetes x1 year, eaz-myquffd-ozyijljio diabetic x5, hypertension, and peripheral neuropathy. ALLERGIES: THE PATIENT DENIES. PAST SURGICAL HISTORY: The patient had some type of abdominal surgery, does not recall exactly what he had. FAMILY HISTORY: Remarkable for diabetes. SOCIAL HISTORY: Denies any smoking, drinking, or recreational drugs. Has his six kids. CURRENT MEDICATIONS: Note listed in chart including Vanco and Zosyn. REVIEW OF SYSTEMS: CARDIAC: Denies any palpitations or arrhythmias. RESPIRATORY: Denies any shortness of breath or productive cough. GASTROINTESTINAL: Denies any diarrhea or constipation. GENITOURINARY: Denies hematuria or problems voiding. PHYSICAL EXAMINATION: VITAL SIGNS: Afebrile, pulse rate 66, respirations 18, blood pressure 113/55, O2 saturation 100%. Podiatric physical examination reveals the following: VASCULATURE: Pedal pulses to both the DP and PT are diminished. SKIN: Temperature warm and cool to touch. NEUROLOGICAL: Reveals loss of protective sensation when utilizing [place]ie 5.07 monofilament wire. MUSCULOSKELETAL: Reveals muscle mass to be asymmetrical, some swelling noted to the right foot when compared to the left. Has bullae formation to the medial aspect of the first MPJ with a very swollen right foot. DERMATOLOGICAL: As described above. X-rays were evaluated revealing a deep foreign body going down into the joint level. LABORATORY DATA: Labs show white blood cell count of 17.2, hemoglobin 8.9 with a platelet count of 259 with a blood glucose of 144. ASSESSMENT: Cellulitis abscess with a deep foreign body. PLAN: We will attempt to remove the deep foreign body at bedside tomorrow. Abscess will be I and D and debrided. Continue IV Zosyn and vancomycin. DenysYANI Cmumings /[id number]
[2019-09-17 20:27] VITALS: BP 108/61
[2019-09-17] MEDS: MORPHINE SULFATE INJ 4 MG/ML INJ 1ML IV PRN (20:27)
[2019-09-17] MEDS: ONDANSETRON HCL INJ 2MG/ML 2ML 2 MG/ML VIAL IV PRN (20:27)
[2019-09-17 20:32] VITALS: BP 108/61
--- NOTE | 2019-09-17 20:37 | NUR ---
patient is a new admit. patient is resting comfortably in the bed. bed is in the lowest position and call light is within reach. will continue to monitor patient.
--- NOTE | 2019-09-17 20:46 | NUR ---
ACCOUNTING MANAGER CPA notified of elevated lactic acid. No new orders received. will continue to monitor patient.
[2019-09-17] MEDS: PIPER-TAZ 3.375 GM 50 ML IV SCH (23:01)
[2019-09-18] VITALS (8 sets, daily range): BP systolic 102–132; BP diastolic 47–83
[2019-09-18] MEDS: MORPHINE SULFATE INJ 4 MG/ML INJ 1ML IV PRN ×2 (00:57→15:10)
[2019-09-18] MEDS: ONDANSETRON HCL INJ 2MG/ML 2ML 2 MG/ML VIAL IV PRN ×3 (00:57→15:10)
[2019-09-18] MEDS: PIPER-TAZ 3.375 GM 50 ML IV SCH ×3 (05:20→21:02)
[2019-09-18 06:20] LABS: BASOPHILS % 0.3 % (0.0-1.0); EOSINOPHILS # (AUTO) 0.1 (0.0-0.4); EOSINOPHILS % 0.6 % (0.0-6.0); HEMATOCRIT 24.5 % (38.2-49.6); HEMOGLOBIN 8.5 g/dL (14.0-18.0); LYMPHOCYTES # (AUTO) 1.2 (1.0-3.2); LYMPHOCYTES % 7.4 % (18.0-39.1); MEAN CORPUSCULAR HEMOGLOBIN 29.6 pg (28-32); MEAN CORPUSCULAR HGB CONC 34.7 g/dL (31-35); MEAN CORPUSCULAR VOLUME 85.4 fL (81-99); MONOCYTES # (AUTO) 1.4 (0.2-0.8); MONOCYTES % 8.7 % (4.4-11.3); NEUTROPHILS # (AUTO) 12.9 (2.1-6.9); NEUTROPHILS % 82.1 % (38.7-80.0); PLATELET COUNT 275 x10e3/uL (140-360); RED BLOOD COUNT 2.87 x10e6/uL (4.3-5.7); RED CELL DISTRIBUTION WIDTH 11.9 % (11.7-14.4)
--- NOTE | 2019-09-18 06:34 | NUR ---
patient is resting comfortably in the chair. call light is within reach. no distress noted.
[2019-09-18 06:45] LABS: ALBUMIN 2.4 g/dL (3.5-5.0); ALBUMIN/GLOBULIN RATIO 0.6 (0.8-2.0); ANION GAP 17.7 mmol/L (8-16); CALCIUM 8.3 mg/dL (8.4-10.2); CREATININE, SERUM 3.57 mg/dL (0.72-1.25); POTASSIUM 3.7 mmol/L (3.5-5.1)
[2019-09-18] MEDS: INSULIN LISPRO 100 UNIT/1 ML 3ML VIAL SQ SCH ×4 (07:30→21:03)
[2019-09-18] MEDS ORDERED: LIDOCAINE HCL 1% 2 ML AMP INJ ONE (11:00)
--- NOTE | 2019-09-18 12:32 | Diagnostic Imaging Report ---
FOOT RIGHT COMPLETE - 3 views HISTORY: Pain COMPARISON: 09/17/2019 FINDINGS: See impression. IMPRESSION: Interval removal of previously seen linear foreign body with mild soft tissue swelling and emphysema surrounding the first metatarsophalangeal joint. No acute displaced fracture or dislocation. Signed by: Dr. Magdaleno Taylor MD on 09/18/2019 12:29 PM
[2019-09-18] MEDS: GABAPENTIN 100 MG CAP PO SCH ×2 (14:44→21:02)
[2019-09-18] MEDS: ASPIRIN 81 MG ENTERIC COATED PO SCH (14:44)
[2019-09-18] MEDS: VANCOMYCIN 1GM/NS 250 ML 250 ML IV SCH (17:02)
--- NOTE | 2019-09-18 17:11 | NUR ---
Called [facility] Infectious disease regarding gram positive cocci in pairs and chains, spoke to Sravanthi.
--- NOTE | 2019-09-18 17:33 | Progress Note ---
DATE: 09/18/2019 SUBJECTIVE: The patient is seen at bedside. He is feeling somewhat better since he has been getting his IV antibiotics. Still has a very swollen left foot when compared to contralateral side. OBJECTIVE: VITAL SIGNS: Afebrile, pulse rate 66, respirations 20, blood pressure 127/56, O2 saturation 100%. LABORATORY DATA: Labs show white blood cell count of 15.7, hemoglobin 8.5 with a blood glucose of 144. Has a very swollen left foot with abscess to the dorsal medial aspect of the left foot overlying the dorsal aspect of the first metatarsophalangeal joint. The puncture wound and cellulitis of left lower extremity secondary to the deep foreign body. ASSESSMENT: Diabetic neuropathy, cellulitis with abscess formation. PLAN: Under no anesthesia secondary to his peripheral neuropathy, the abscesses were I and D deep to both the dorsal and plantar aspect of the left lower extremity. Deep cultures were taken for aerobic and anaerobic growth both dorsally and plantarly. Approximately 2 to 3 mL of purulent drainage was drained. Stab incision was performed to the plantar aspect of the first metatarsophalangeal joint measuring 1 cm in diameter. Utilizing deep dissection via the use of a curved stat a deep foreign body was excised from the left foot and shown to the patient, metallic. The areas were then flushed. Sterile dressing was applied followed by Bactroban and diluted wet-to-dry Betadine. We will repeat CBC with diff tomorrow morning. B.i.d. dressing changes with Bactroban and diluted wet-to-dry. Three views x-rays will be reordered. We will continue IV antibiotics and see how patient responds. The patient may need further debridement. Foreign body was deep into the metatarsophalangeal joint and the abscess was tracking from the plantar and dorsal aspect. A stab incision was performed to the dorsal aspect of the first metatarsophalangeal joint to allow for proper drainage. The patient tolerated the procedure well secondary to his severe peripheral neuropathy. YANI Pedraza/ADRIEL /[id number]
--- NOTE | 2019-09-18 18:18 | NUR ---
Spoke with Dr. Colunga regarding gram positive cocci with pairs and chains, he order a vancomycin trough before next dose tomorrow.
--- NOTE | 2019-09-18 19:53 | Consultation ---
DATE OF CONSULTATION: Pulmonary Critical Care Consultation CHIEF COMPLAINT: Pain and swelling of the toe of the right foot with fevers and diabetes. HISTORY OF PRESENT ILLNESS: The patient is a 69-year-old man. He has a history of diabetes and has been on insulin for the past 10 years. He also has some chronic kidney disease. He has required hospitalization in February 2019 for swelling and pain in the left foot. He was subsequently diagnosed with osteomyelitis. He also had to have a foreign body removed from his foot at that time. He now returns to the hospital complaining of swelling in the right foot. The pain is mostly in the great toe. He has had fever for the past 3 days. PAST MEDICAL HISTORY: 1. Diabetes with peripheral neuropathy and chronic kidney disease. 2. Hypertension. 3. Gastroesophageal reflux. 4. Anemia. PAST SURGICAL HISTORY: 1. Status post removal of foreign body from the left foot. 2. Status post hernia repairs. 3. Status post hemorrhoidectomy. FAMILY HISTORY: There is a history of cancer in his brother and diabetes. SOCIAL HISTORY: The patient has 6 children and 11 grandchildren. He has 2 daughters, who are RNs and one son was an anesthesiologist. He is not an active smoker. He is not an active drinker. ALLERGIES: THERE ARE NO KNOWN DRUG ALLERGIES. REVIEW OF SYSTEMS: He did have some fevers. He has no headache. He is not complaining of any neck pain or chest pain. He does not have any cough or difficulty breathing. He has no abdominal pain. He does have some chronic back pain. He notes some pain in his toe. PHYSICAL EXAMINATION: VITAL SIGNS: The patient is afebrile. The blood pressure is 102/54 and saturation is 94%. The pulse is 79 and the respiratory rate is 18. HEENT: Shows no facial swelling or erythema. CARDIAC: Reveals regular rate and rhythm with normal S1 and S2. LUNGS: Auscultation of lungs reveals clear breath sounds bilaterally. There is no wheezing. ABDOMEN: Soft and nontender. There is no rebound or guarding. EXTREMITIES: Shows a bandaged foot on the right side. The right great toe is bandaged after an I and D. LABORATORY DATA: The white blood cell count is 15.7 and the hemoglobin is 8.5. The platelet count is 275. The BUN to creatinine ratio is 63 to 3.57. Carbon dioxide is 20 and the sodium is 127. Blood sugars 180. Albumin is 2.5. RADIOGRAPHIC DATA: Foot x-ray shows foreign body that was subsequently removed. IMPRESSION: 1. Cellulitis and abscess formation of the right great toe from a foreign body. 2. Stage 4 chronic renal failure. 3. Hypertension. 4. Peripheral neuropathy. 5. Anemia. 6. Chronic back pain. PLAN: 1. The patient is status post incision and drainage from podiatry. 2. He is currently on Zosyn q.8. 3. Continue pain control. 4. Monitor and control blood sugars. 5. Infectious Disease consultation. MD LINDSAY Neal/ADRIEL /[id number]
[2019-09-18] MEDS: PRAVASTATIN 20 MG TAB PO SCH (21:02)
[2019-09-19] VITALS (8 sets, daily range): BP systolic 101–125; BP diastolic 44–64
--- NOTE | 2019-09-19 | NUR ---
DRESSING TO RIGHT FOOT CHANGED. PATIENT TOLERATED PROCEDURE WELL.
[2019-09-19] MEDS: ONDANSETRON HCL INJ 2MG/ML 2ML 2 MG/ML VIAL IV PRN ×3 (00:20→23:03)
[2019-09-19] MEDS: MORPHINE SULFATE INJ 4 MG/ML INJ 1ML IV PRN ×2 (00:20→11:03)
[2019-09-19] MEDS: GABAPENTIN 100 MG CAP PO SCH ×3 (05:15→22:00)
[2019-09-19] MEDS: PIPER-TAZ 3.375 GM 50 ML IV SCH ×3 (05:15→22:00)
[2019-09-19 05:48] LABS: BASOPHILS # (AUTO) 0.1 (0.0-0.1); BASOPHILS % 0.4 % (0.0-1.0); EOSINOPHILS % 0.2 % (0.0-6.0); HEMATOCRIT 21.7 % (38.2-49.6); HEMOGLOBIN 7.3 g/dL (14.0-18.0); LYMPHOCYTES # (AUTO) 1.4 (1.0-3.2); LYMPHOCYTES % 8.4 % (18.0-39.1); MEAN CORPUSCULAR HEMOGLOBIN 29.2 pg (28-32); MEAN CORPUSCULAR HGB CONC 33.6 g/dL (31-35); MEAN CORPUSCULAR VOLUME 86.8 fL (81-99); MONOCYTES # (AUTO) 1.5 (0.2-0.8); MONOCYTES % 8.9 % (4.4-11.3); NEUTROPHILS # (AUTO) 13.1 (2.1-6.9); NEUTROPHILS % 80.4 % (38.7-80.0); PLATELET COUNT 295 x10e3/uL (140-360)
[2019-09-19 06:15] LABS: ALBUMIN 2.2 g/dL (3.5-5.0); ALBUMIN/GLOBULIN RATIO 0.5 (0.8-2.0); ANION GAP 18.2 mmol/L (8-16); CALCIUM 8.1 mg/dL (8.4-10.2); CREATININE, SERUM 4.51 mg/dL (0.72-1.25); POTASSIUM 4.2 mmol/L (3.5-5.1)
--- NOTE | 2019-09-19 06:43 | NUR ---
PATIENT IS RESTING COMFORTABLY IN THE BED. NO DISTRESS NOTED.
[2019-09-19] MEDS: PANTOPRAZOLE SOD 40 MG TABEC PO SCH (10:14)
[2019-09-19] MEDS: HYDROCHLOROTHIAZIDE 25 MG TAB PO SCH (10:14)
[2019-09-19] MEDS: ASPIRIN 81 MG ENTERIC COATED PO SCH (10:14)
[2019-09-19] MEDS: LISINOPRIL 10 MG TAB PO SCH (10:16)
[2019-09-19] MEDS: INSULIN LISPRO 100 UNIT/1 ML 3ML VIAL SQ SCH ×4 (10:22→21:00)
[2019-09-19] MEDS ORDERED: BISACODYL 5 MG TAB EC PO ONE (13:00)
[2019-09-19] MEDS ORDERED: GABAPENTIN 100 MG CAP PO SCH (14:00)
[2019-09-19] MEDS ORDERED: MORPHINE SULFATE 2 MG/ML SYR 1ML IV PRN (14:15)
--- NOTE | 2019-09-19 15:31 | Progress Note ---
DATE: 09/19/2019 SUBJECTIVE: The patient was seen at bedside. He says he has a history of severe neuropathy and he did not feel when he stepped on something. He came into the hospital because his foot got red hot and swollen, so he came into the ER. On exam, he came in with a white blood count of 17.29. It is now trending down to 16.28. His neutrophils are also trending down from 14.3 to 13.1. The x-ray shows that yesterday there was removal of the linear foreign body, which was done by Dr. Phipps in the room yesterday. On exam, the erythema and edema. The patient showed me pictures from yesterday. It is decreasing. It is within the marking boundary. At this point, there is no streaking erythema. No ascending lymphangitis. He does still have some pain to the deep plantar aspect where the foreign body was and he possibly had the abscess. The abscess is draining. Pedal pulses palpable. Capillary filling time is delayed. Protective threshold is absent on intrinsic minus type of foot. ASSESSMENT: 1. Diabetic foot ulcer grade 3 right foot. 2. Diabetes with neuropathy. 3. History of foreign body. PLAN: At this point, continue local wound care. Continue offloading. Continue IV antibiotics. The wound seems to be responding. He might need further debridement in the future when he is aware of this. I have answered all questions. Dr. Phipps will continue to follow. Ellen Stephen DPM ER/MODL /[id number]
[2019-09-19] MEDS: HYDROCODONE/APAP 5MG-325MG TAB PO PRN ×2 (15:44→23:03)
--- NOTE | 2019-09-19 16:30 | NUR ---
Patient's right foot dressing removed, bactroban ointment applied to wound, betadine applied to 4x4s and saturated with normal saline then applied to wound then wrapped in kerlex dressing and fixed in place with tape.
--- NOTE | 2019-09-19 18:11 | NUR ---
Called [facility] answering service regarding "elevated vancomycin trough of 16 and orders needed", spoke to Franco
--- NOTE | 2019-09-19 18:34 | NUR ---
Made second call to Dr. Colunga's answering service regarding Vancomcin trough of 16, spoke to Geno.
[2019-09-19] MEDS: VANCOMYCIN 1GM/NS 250 ML 250 ML IV SCH (18:54)
--- NOTE | 2019-09-19 19:25 | NUR ---
Patient received lying in bed. AAO x 3. Patient had no complaints of pain. Respirations even and non-labored. Dressing to right foot CDI. Safety measures in place. Patient instructed to call for assistance when needed. Call light within reach.
[2019-09-19] MEDS: PRAVASTATIN 20 MG TAB PO SCH (21:15)
--- NOTE | 2019-09-19 22:53 | NUR ---
Wound dressing to right foot performed per MD's orders. Patient tolerated well.
[2019-09-20] VITALS (8 sets, daily range): BP systolic 109–144; BP diastolic 56–73
[2019-09-20 05:09] LABS: BASOPHILS # (AUTO) 0.1 (0.0-0.1); BASOPHILS % 0.3 % (0.0-1.0); EOSINOPHILS # (AUTO) 0.1 (0.0-0.4); EOSINOPHILS % 0.4 % (0.0-6.0); HEMATOCRIT 22.4 % (38.2-49.6); HEMOGLOBIN 7.6 g/dL (14.0-18.0); LYMPHOCYTES # (AUTO) 1.6 (1.0-3.2); LYMPHOCYTES % 10.5 % (18.0-39.1); MEAN CORPUSCULAR HEMOGLOBIN 29.9 pg (28-32); MEAN CORPUSCULAR HGB CONC 33.9 g/dL (31-35); MEAN CORPUSCULAR VOLUME 88.2 fL (81-99); MONOCYTES # (AUTO) 1.1 (0.2-0.8); MONOCYTES % 7.2 % (4.4-11.3); NEUTROPHILS # (AUTO) 11.8 (2.1-6.9); NEUTROPHILS % 79.8 % (38.7-80.0); PLATELET COUNT 358 x10e3/uL (140-360); RED BLOOD COUNT 2.54 x10e6/uL (4.3-5.7)
[2019-09-20 05:39] LABS: CALCIUM 8.1 mg/dL (8.4-10.2); CREATININE, SERUM 5.81 mg/dL (0.72-1.25); MAGNESIUM 2.1 MG/DL (1.3-2.1)
[2019-09-20] MEDS: PIPER-TAZ 3.375 GM 50 ML IV SCH (06:37)
[2019-09-20] MEDS: GABAPENTIN 100 MG CAP PO SCH ×3 (06:37→22:01)
--- NOTE | 2019-09-20 07:00 | NUR ---
Patient resting comfortably. Shift report given to oncoming nurse regarding patient's status.
--- NOTE | 2019-09-20 07:03 | NUR ---
Received patient lying in bed with eyes closed. Respiration even and unlabored without SOB. Call light in reach.
[2019-09-20] MEDS: INSULIN LISPRO 100 UNIT/1 ML 3ML VIAL SQ SCH ×4 (07:30→21:00)
[2019-09-20] MEDS: LISINOPRIL 10 MG TAB PO SCH ×2 (09:00→09:11)
[2019-09-20] MEDS: ASPIRIN 81 MG ENTERIC COATED PO SCH (09:10)
[2019-09-20] MEDS: PANTOPRAZOLE SOD 40 MG TABEC PO SCH (09:10)
[2019-09-20] MEDS: HYDROCHLOROTHIAZIDE 25 MG TAB PO SCH (09:10)
--- NOTE | 2019-09-20 10:54 | Progress Note ---
DATE: SUBJECTIVE: The patient is seen and evaluated. Available labs and notes reviewed. His left foot wound dressing was taken down and wound examined. REVIEW OF SYSTEMS: No nausea, vomiting, fever, chills, chest pain, shortness of breath. Pain is controlled. PHYSICAL EXAMINATION: VITAL SIGNS: Temperature 95.6 at 8 o'clock; it was 98.0 at 4 o'clock in the morning. Pulse is a 59, respirations 18, and blood pressure 136/58. GENERAL: Clinically, alert and oriented, in no acute distress. CV: S1 and S2. CHEST: Equal expansion. LUNGS: Clear to auscultation. ABDOMEN: Soft and nontender. No distention. HEENT: Moist. No pallor. No JVD. EXTREMITIES: Right foot plantar opening maybe about 0.5 cm round with some slightly dark tissue around the opening, otherwise the remaining of the tissue seems to be granulated, maybe few spots of dark areas, otherwise with some edema and erythema. MEDICATIONS: Medication list reviewed. As far as Infectious Disease point of view, the patient is on Zosyn and vancomycin. LABORATORY STUDIES: White count of 14.83, improved from 16.28, hemoglobin 7.6 with a platelet count of 358. Sodium 124, potassium 4, creatinine 5.081. RADIOLOGY: No new radiology studies available. ASSESSMENT AND PLAN: 1. Status post removal of the foreign body from the left plantar foot. 2. Cellulitis of the left foot. 3. Acute on chronic renal failure. 4. Leukocytosis, improved. 5. Obesity. 6. Debility-multifactorial. 7. Anemia. 8. Stop the antibiotics and further management of this patient is based on daily findings on laboratory and physical examination. Antibiotic will be stopped secondary to acute renal failure on chronic. Please refer to chart for more information. Discussed with Dr. Colunga. Dictated by Devin Zhang PA-C (Al) Lacey Colunga MD /MODL /[id number]
[2019-09-20] MEDS: HYDROCODONE/APAP 5MG-325MG TAB PO PRN (13:04)
[2019-09-20 14:54] LABS: % IRON SATURATION 8 % (15-50); IRON 14 ug/dL (65-175); TOTAL IRON BINDING CAPACITY 175 ug/dL (261-478); TRANSFERRIN 125 mg/dL (174-364)
--- NOTE | 2019-09-20 14:57 | Diagnostic Imaging Report ---
EXAM: US RENAL RETROPERITONEAL COMP DATE: 09/20/2019 2:19 PM INDICATION: Acute kidney injury COMPARISON: 02/17/2019 FINDINGS: The right kidney is normal in size measuring 14.1 x 5.5 x 5.2 cm with cortical thickness of 1.4 cm. Cortical echogenicity is within normal limits. There is no evidence for solid renal mass, hydronephrosis, or shadowing calculi. The left kidney is normal in size measuring 12.6 x 6.4 x 4.9 cm with cortical thickness of 1.6 cm. Cortical echogenicity is within normal limits. There is no evidence for solid renal mass, hydronephrosis, or shadowing calculi. The partially distended urinary bladder is unremarkable. Bilateral ureteral jets are noted. Prevoid volume is 192 cc. IMPRESSION: Unremarkable sonographic appearance of the kidneys. Signed by: Dr. Juarez Vallecillo MD on 09/20/2019 2:54 PM
[2019-09-20] MEDS: SODIUM BICARBONATE 650 MG TAB PO SCH ×2 (16:18→21:30)
[2019-09-20] MEDS: SODIUM CHLORIDE 0.9% 1000ML 1,000 ML IV SCH ×2 (16:58→23:45)
--- NOTE | 2019-09-20 19:18 | NUR ---
Report given to shift superintendent. Respiration even and unlabored without SOB. Call light in reach.
--- NOTE | 2019-09-20 19:20 | NUR ---
Patient received sitting in recliner chair. No acute distress noted. Fall precautions implemented. Patient instructed to call for assistance when needed. Call light within reach.
[2019-09-20] MEDS ORDERED: ONDANSETRON HCL 4 MG ORAL DISINTEGRATING TAB PO PRN (19:30)
--- NOTE | 2019-09-20 20:41 | Consultation ---
DATE OF CONSULTATION: 09/20/2019 HISTORY OF PRESENT ILLNESS: 69-year-old gentleman known to our Nephrology Service, who has been admitted for his foot infection and being treated by Dr. Phipps, renal consult for management of kidney injury. He has baseline CKD 3. Last seen in July with a baseline creatinine of creatinine from around 1.8. This time around, has significant worsening of kidney function. He is currently lying supine, awake, alert, and oriented x3. No apparent distress. Denies fever, chills, chest pain, or shortness of breath. Has a white count of 14.8, hemoglobin 7.8. Last vancomycin level done on the was 16. Chemistry shows sodium 124, potassium 4, bicarb 18 with a BUN 87 and creatinine 5.81. The patient has been here since , and serum creatinine was 3.27 upon admission. He has not received any IV contrast. Recently he was taking acetaminophen and ibuprofen intermittently while at home for his backache. Denies taking any oral antibiotics at home. He underwent recent removal of foreign body from his foot. PAST MEDICAL HISTORY: He has past history of diabetes, diabetic kidney disease, peripheral neuropathy, has history of hypertension and GERD. ALLERGIES: DAIRY PRODUCTS. CURRENT MEDICATIONS: The patient is on piperacillin/tazobactam, vancomycin. He was receiving it daily, this has been stopped now. He is on gabapentin 100 q.8, insulin, hydralazine p.r.n., and hydrochlorothiazide. He is on lisinopril 10 mg daily. He is on ondansetron, morphine, p.r.n. pantoprazole, and pravastatin 40 mg daily. SOCIAL HISTORY: Does not smoke or drink. FAMILY HISTORY: Significant for hypertension and diabetes. PHYSICAL EXAMINATION: GENERAL: Awake, alert, and oriented x3, lying supine, in no apparent distress. VITAL SIGNS: Blood pressure 109/73, pulse rate 65, afebrile. HEAD AND NECK: Cornea clear. Oral mucosa moist. LUNGS: Relatively clear. HEART: S1 and S2 audible. ABDOMEN: Otherwise soft and nontender. No apparent visceromegaly. EXTREMITIES: Lower extremity examination shows dressing on right foot. Trace edema. IMPRESSION: Right foot cellulitis, removal of foreign body, diabetic foot ulcer, multiple comorbidities, hypertension, diabetes, now anemic, hemoglobin 7.6, has metabolic acidosis, worsening kidney function, hyponatremia, etiology of acidosis, worsening kidney function, hyponatremia, multifactorial, most likely has iron-deficiency anemia, until proven otherwise. PLAN: Obtaining a urinalysis, spot urine protein/creatinine ratio, urine electrolytes. Discontinue antibiotics which you have. Start p.o. bicarbonate. Spot urine protein/creatinine ratio, spot urine sodium and creatinine, calculate fraction excretion of sodium. Kidney ultrasound, vancomycin level. Start IV normal saline. Clinic records. Please see orders. Real Tavarez MD SAK/MODL /[id number]
[2019-09-20] MEDS: PRAVASTATIN 20 MG TAB PO SCH (21:30)
--- NOTE | 2019-09-20 22:45 | NUR ---
IV infiltrated in left arm. Old IV removed with tip intact. New IV inserted in left FA 22G. Patient tolerated well.
--- NOTE | 2019-09-20 23:00 | NUR ---
Urine specimen sent to lab for analysis.
[2019-09-20 23:38] LABS: BILIRUBIN,URINE NEGATIVE (NEGATIVE); CLARITY,URINE CLOUDY (CLEAR); COLOR,URINE YELLOW (YELLOW); KETONES,URINE NEGATIVE (NEGATIVE); LEUKOCYTE ESTERASE ,URINE NEGATIVE (NEGATIVE); NITRITE,URINE NEGATIVE (NEGATIVE); PROTEIN,URINE DIPSTICK 1+ (NEGATIVE); URINE UROBILINOGEN 0.2 mg/dL (0.2 - 1)
[2019-09-20 23:55] LABS: BACTERIA,URINE MANY /HPF; EPITHELIAL CELLS,URINE FEW /LPF; MUCUS,URINE FEW (RARE); RBC,URINE 0-5 /HPF (0-5); TRANSITIONAL EPI CELLS,URINE FEW
[2019-09-21] VITALS (8 sets, daily range): BP systolic 133–164; BP diastolic 60–71
[2019-09-21 00:01] LABS: CREATININE,URINE RANDOM 61.85 mg/dL (63-166); TOTAL PROTEIN, URINE 20.6 mg/dL (1-14)
--- NOTE | 2019-09-21 04:30 | NUR ---
Wound dressing performed per MD's orders. Patient tolerated well.
[2019-09-21 05:13] LABS: BASOPHILS # (AUTO) 0.1 (0.0-0.1); BASOPHILS % 0.5 % (0.0-1.0); EOSINOPHILS # (AUTO) 0.3 (0.0-0.4); HEMATOCRIT 24.2 % (38.2-49.6); HEMOGLOBIN 8.4 g/dL (14.0-18.0); LYMPHOCYTES # (AUTO) 1.9 (1.0-3.2); LYMPHOCYTES % 14.7 % (18.0-39.1); MEAN CORPUSCULAR HEMOGLOBIN 29.1 pg (28-32); MEAN CORPUSCULAR HGB CONC 34.7 g/dL (31-35); MEAN CORPUSCULAR VOLUME 83.7 fL (81-99); MONOCYTES # (AUTO) 1.2 (0.2-0.8); MONOCYTES % 9.5 % (4.4-11.3); NEUTROPHILS # (AUTO) 9.3 (2.1-6.9); NEUTROPHILS % 71.5 % (38.7-80.0); PLATELET COUNT 373 x10e3/uL (140-360); RED BLOOD COUNT 2.89 x10e6/uL (4.3-5.7); RED CELL DISTRIBUTION WIDTH 11.9 % (11.7-14.4)
[2019-09-21 05:29] LABS: ALBUMIN 2.1 g/dL (3.5-5.0); ALBUMIN/GLOBULIN RATIO 0.5 (0.8-2.0); ANION GAP 19.7 mmol/L (8-16); CALCIUM 8.2 mg/dL (8.4-10.2); CREATININE, SERUM 5.42 mg/dL (0.72-1.25); PHOSPHORUS 5.1 MG/DL (2.3-4.7); POTASSIUM 3.7 mmol/L (3.5-5.1)
[2019-09-21] MEDS: GABAPENTIN 100 MG CAP PO SCH ×3 (06:15→20:58)
--- NOTE | 2019-09-21 06:57 | NUR ---
Received patient lying in bed with eyes closed. respiration even and unlabored without SOB. Call light in reach.
[2019-09-21] MEDS: PANTOPRAZOLE SOD 40 MG TABEC PO SCH (09:37)
[2019-09-21] MEDS: ASPIRIN 81 MG ENTERIC COATED PO SCH (09:38)
[2019-09-21] MEDS: SODIUM BICARBONATE 650 MG TAB PO SCH ×3 (09:38→20:58)
[2019-09-21] MEDS: INSULIN LISPRO 100 UNIT/1 ML 3ML VIAL SQ SCH ×4 (09:41→21:00)
--- NOTE | 2019-09-21 10:54 | Progress Note ---
DATE: SUBJECTIVE: The patient is seen and evaluated. Available labs and notes reviewed. Discussed with the patient and staff. Uneventful night. REVIEW OF SYSTEMS: No nausea, vomiting, fever, chills, chest pain, shortness of breath, pain, cough, sweats, or headache. PHYSICAL EXAMINATION: VITAL SIGNS: Temperature is 98.2, pulse is 78, respiration of 16 with blood pressure 137/67. GENERAL: Alert and oriented, seated in a recliner. No acute distress. CV: S1 and S2. CHEST: Equal expansion. Clear to auscultation. No acute distress. HEENT: Moist. No pallor. No JVD. EXTREMITIES: Right foot dressed and elevated. MEDICATIONS: Antibiotics were stopped yesterday secondary to mezmt-qs-tapmwtd kidney injury. LABORATORY STUDIES: White count of 13, improved from 14.83, hemoglobin 8.4, and platelet 373. Sodium 122, potassium 3.7, and creatinine 5.42. Vancomycin random was 25.3 yesterday at 4:40 in the morning. MICROBIOLOGY: Blood culture showed strep viridans one set and the other set was clean. Also ,wound showed Serratia from his right foot. RADIOLOGY STUDIES: Renal ultrasound was done yesterday showed unremarkable sonographic appearance of the kidneys. ASSESSMENT AND PLAN: 1. Bvimc-nf-rnfnfqy renal failure-antibiotic stopped. 2. Cellulitis of left foot. 3. Status post removal of foreign body from left plantar foot. 4. Leukocytosis, improved. 5. Debility. 6. Anemia. 7. Obesity. 8. The patient is currently off the antibiotics secondary to renal injury and worsening of the creatinine level. The patient is seen by Renal specialist. Vancomycin random level was 25 yesterday morning. We will discuss with Dr. Colunga to start kidney friendly antibiotics considering he has strep in his blood. Further management of this patient is based on daily findings on laboratory and physical examination. Discussed with Dr. Colunga. Please refer to chart for more information. Dictated by Devin Zhang PA-C (Al) Lacey Colunga MD /MODL /[id number]
[2019-09-21] MEDS: CEFTRIAXONE SOD 1 GM/NS 50 ML 50 ML IV SCH (14:12)
[2019-09-21] MEDS: SODIUM CHLORIDE 0.9% 1000ML 1,000 ML IV SCH ×2 (14:12→19:45)
[2019-09-21] MEDS: HYDROCODONE/APAP 5MG-325MG TAB PO PRN (14:31)
[2019-09-21] MEDS: SODIUM CHLORIDE 1 GM TAB PO SCH (17:18)
--- NOTE | 2019-09-21 17:40 | Progress Note ---
DATE: 09/20/2019 SUBJECTIVE: The patient at bedside, doing well. Denies any history of fever, chills, nausea, or vomiting. OBJECTIVE: VITAL SIGNS: Afebrile, pulse rate 65, respirations 17, blood pressure 109/73, O2 saturation 98%. LABORATORY DATA: White blood cell dropping from 16.2 to 14.8, hemoglobin 7.6 with a platelet count of 358. There is still some cellulitis noted to the right lower extremity overlying the first MPJ, some erythema noted, some drainage, but negative foul smell. Has an open lesion both plantarly and dorsally from the I and D sites. ASSESSMENT: Cellulitis, possible osteo with neuropathy. PLAN: Utilizing hemostat, the hemostat was incorporated into both I and D sites and opened up, some drainage came out, but negative foul smell. We will continue Bactroban, followed by diluted wet-to-dry Betadine. The patient will need IV antibiotics for the next 3-4 weeks. YANI Pedraza/ADRIEL /[id number]
--- NOTE | 2019-09-21 18:55 | NUR ---
Report given to warehouse worker 2nd shift. Respiration even and unlabored without SOB. Call light in reach.
[2019-09-21] MEDS: PRAVASTATIN 20 MG TAB PO SCH (20:58)
[2019-09-21] MEDS ORDERED: IRON18 MG PO (21:10)
[2019-09-22] VITALS (8 sets, daily range): BP systolic 122–179; BP diastolic 58–78
[2019-09-22] MEDS: CEFTRIAXONE SOD 1 GM/NS 50 ML 50 ML IV SCH ×3 (00:03→23:59)
[2019-09-22 05:24] LABS: BASOPHILS # (AUTO) 0.1 (0.0-0.1); BASOPHILS % 0.5 % (0.0-1.0); EOSINOPHILS # (AUTO) 0.2 (0.0-0.4); EOSINOPHILS % 1.2 % (0.0-6.0); HEMATOCRIT 23.2 % (38.2-49.6); HEMOGLOBIN 8.1 g/dL (14.0-18.0); LYMPHOCYTES # (AUTO) 2.2 (1.0-3.2); LYMPHOCYTES % 16.7 % (18.0-39.1); MEAN CORPUSCULAR HEMOGLOBIN 29.7 pg (28-32); MEAN CORPUSCULAR HGB CONC 34.9 g/dL (31-35); MONOCYTES # (AUTO) 1.1 (0.2-0.8); MONOCYTES % 8.4 % (4.4-11.3); NEUTROPHILS # (AUTO) 9.1 (2.1-6.9); NEUTROPHILS % 70.5 % (38.7-80.0); PLATELET COUNT 417 x10e3/uL (140-360); RED BLOOD COUNT 2.73 x10e6/uL (4.3-5.7); RED CELL DISTRIBUTION WIDTH 11.8 % (11.7-14.4)
[2019-09-22] MEDS: SODIUM CHLORIDE 0.9% 1000ML 1,000 ML IV SCH ×2 (05:45→15:21)
[2019-09-22 05:47] LABS: ALBUMIN/GLOBULIN RATIO 0.5 (0.8-2.0); ANION GAP 17.6 mmol/L (8-16); CALCIUM 7.6 mg/dL (8.4-10.2); CREATININE, SERUM 4.76 mg/dL (0.72-1.25); POTASSIUM 3.6 mmol/L (3.5-5.1)
[2019-09-22] MEDS: GABAPENTIN 100 MG CAP PO SCH ×3 (06:11→21:20)
[2019-09-22] MEDS: SODIUM CHLORIDE 1 GM TAB PO SCH ×2 (07:48→16:46)
[2019-09-22] MEDS: PANTOPRAZOLE SOD 40 MG TABEC PO SCH (07:48)
[2019-09-22] MEDS: SODIUM BICARBONATE 650 MG TAB PO SCH ×3 (07:48→21:20)
[2019-09-22] MEDS: ASPIRIN 81 MG ENTERIC COATED PO SCH (07:48)
[2019-09-22] MEDS: FERROUS SULFATE 325 MG TAB PO SCH (07:48)
[2019-09-22] MEDS: INSULIN LISPRO 100 UNIT/1 ML 3ML VIAL SQ SCH ×4 (07:49→21:22)
--- NOTE | 2019-09-22 10:13 | Progress Note ---
DATE: 09/22/2019 SUBJECTIVE: The patient at bedside, having temperatures peaking at 99.4 and 99.5. Does relate some chills occasionally in the evening, has not any chills for at least two nights now. OBJECTIVE: VITAL SIGNS: Afebrile with a temp of 99.4, 66 pulse rate, respirations 18, blood pressure 122/58, and O2 saturation 95%. LABORATORY DATA: Show white blood cell count of 12.8. Still cellulitis to the right lower extremity very swollen compared to contralateral side. Open lesions both dorsally, plantarly, and medially overlying the 1st MPJ very swollen. ASSESSMENT: Cellulitis with possible osteo secondary to puncture wound/deep foreign body into the joint. PLAN: We will repeat x-rays 3 views today. We will continue Santyl followed by diluted wet-to-dry Betadine. Continue IV antibiotics such as ceftriaxone. We will continue to follow. The patient will need IV antibiotics for at least 3-4 more weeks. YANI Pedraza/ADRIEL /[id number]
--- NOTE | 2019-09-22 11:08 | Progress Note ---
DATE: SUBJECTIVE: The patient is seen and evaluated. Available labs and notes reviewed. Discussed with the patient. No new events. Tolerating Rocephin. REVIEW OF SYSTEMS: No nausea, vomiting, fever, chills, chest pain, shortness of breath, headache, dysuria, or polyuria. Pain is controlled. PHYSICAL EXAMINATION: VITAL SIGNS: Temperature 99.4, pulse 66, respiration 18, blood pressure 122/58. T-max is 99.7 past 48 hours. GENERAL: Alert and oriented, very pleasant, comfortable in bed, in no acute distress. CV: S1 and S2. CHEST: Equal expansion. Clear to auscultation. No acute distress. HEENT: Moist. No pallor. No JVD. ABDOMEN: Soft, obese, and nontender. Positive bowel sounds. EXTREMITIES: Right foot wound dressed with some edema. MEDICATIONS: Medication list reviewed and as far as Infectious Disease point of view, the patient is on Rocephin 1 g IV piggyback twice a day. LABORATORY STUDIES: White count of 12.87 from 13 yesterday, hemoglobin 8.1, and platelet 417. Sodium 129, potassium 3.6 with a creatinine level of 4.76. MICROBIOLOGY: No new microbiology studies available. RADIOLOGY STUDIES: No new radiology studies available. ASSESSMENT AND PLAN: 1. Strep bacteremia. 2. Cellulitis of the right foot. 3. Status post removal of the foreign body from the plantar aspect of the right foot. 4. Yakqz-qu-ohxblyu renal failure. Antibiotic changed to Rocephin. 5. Obesity/debility-continue PT/OT. 6. Continue with wound care. 7. Podiatry note from today reviewed, pending 3-view x-rays today. Continue with wound care. Continue to monitor the patient clinically and follow with the labs. Discussed with Dr. Colunga in details. Dictated by Devin Zhang PA-C (Al) Lacey Colunga MD /MODL /[id number]
--- NOTE | 2019-09-22 11:49 | NUR ---
DISCUSSED PLAN WITH AL, DR DOBBINS'S PA PT WILL NEED IV ABX, CEFTRIAXONE 1 GM Q 12 HRS X 4 WEEKS D/W HARDIK LEO FOR DR SCHUSTER P.T. EVCRISTOBAL ORDERED PICC LINE TODAY DC PLAN HOME WITH IV ABX VS SNF (DEPENDING ON P.T. EVAL) CM TO FOLLOW
--- NOTE | 2019-09-22 13:35 | NUR ---
Dr. Tavarez is here making rounds. I notified him patient has an order for PICC line placement for outpatient IV antibiotics. He said to order a tunneled central line.
--- NOTE | 2019-09-22 14:00 | Diagnostic Imaging Report ---
EXAMINATION: FOOT RIGHT COMPLETE INDICATION: Soft tissue infection COMPARISON: None FINDINGS: Soft tissue ulceration along the medial aspect of the first MTP joint, compatible with provided history of recent debridement of soft tissue wound infection. Small amount of associated subcutaneous soft tissue emphysema. No acute fracture or dislocation. No specific radiographic findings of osteomyelitis. Alignment remains anatomic. No substantial degenerative change. IMPRESSION: Soft tissue ulceration along the medial aspect of the first MTP joint without underlying acute osseous injury or specific radiographic evidence of osteomyelitis. Signed by: Hector Chan MD on 09/22/2019 1:54 PM
--- NOTE | 2019-09-22 14:00 | NUR ---
Dr. Tavarez is here and spoke to Dr. Colunga. Per Dr. Colunga hold off on PICC line/Central line placement for now.
[2019-09-22] MEDS ORDERED: FUROSEMIDE INJ 10 MG/ML 4 ML VIAL IV ONE (14:45)
--- NOTE | 2019-09-22 15:59 | NUR ---
as above discussed with renal will dc home with oral antibiotics keep on rocephin for now
--- NOTE | 2019-09-22 19:00 | NUR ---
RECEIVED PATIENT IN BEDSIDE SHIFT REPORT. PATIENT A&OX3. NO PAIN REPORTED AT THIS TIME. NO S&S OF DISTRESS NOTED. L HAND 22G IV RUNNING NS @ 75ML/HR, ASYMPTOMATIC. BED LOCKED IN LOWEST POSITION, SIDE RAILS UPX2, CALL LIGHT IN REACH.
[2019-09-22] MEDS: PRAVASTATIN 20 MG TAB PO SCH (21:20)
[2019-09-22] MEDS: HYDRALAZINE HCL 20 MG/ML VIAL IV PRN (21:20)
[2019-09-22] MEDS: NPH, HUMAN INSULIN ISOPHANE 100 UNIT/1 ML 3ML VIAL SQ SCH (21:21)
[2019-09-23] VITALS (9 sets, daily range): BP systolic 115–188; BP diastolic 54–74
--- NOTE | 2019-09-23 03:34 | NUR ---
DRESSING CHANGE DONE AT THIS TIME ACCORDING TO MD ORDERS. PATIENT TOLERATED WELL.
[2019-09-23 05:00] LABS: BASOPHILS # (AUTO) 0.1 (0.0-0.1); BASOPHILS % 0.3 % (0.0-1.0); EOSINOPHILS # (AUTO) 0.1 (0.0-0.4); EOSINOPHILS % 0.9 % (0.0-6.0); HEMATOCRIT 23.1 % (38.2-49.6); HEMOGLOBIN 7.9 g/dL (14.0-18.0); LYMPHOCYTES # (AUTO) 2.6 (1.0-3.2); LYMPHOCYTES % 15.8 % (18.0-39.1); MEAN CORPUSCULAR HEMOGLOBIN 29.5 pg (28-32); MEAN CORPUSCULAR HGB CONC 34.2 g/dL (31-35); MEAN CORPUSCULAR VOLUME 86.2 fL (81-99); MONOCYTES # (AUTO) 1.3 (0.2-0.8); NEUTROPHILS # (AUTO) 11.7 (2.1-6.9); NEUTROPHILS % 71.3 % (38.7-80.0); PLATELET COUNT 458 x10e3/uL (140-360); RED BLOOD COUNT 2.68 x10e6/uL (4.3-5.7); RED CELL DISTRIBUTION WIDTH 11.9 % (11.7-14.4)
[2019-09-23 05:34] LABS: ALBUMIN 2.1 g/dL (3.5-5.0); ALBUMIN/GLOBULIN RATIO 0.5 (0.8-2.0); ANION GAP 14.5 mmol/L (8-16); CALCIUM 8.4 mg/dL (8.4-10.2); CREATININE, SERUM 3.69 mg/dL (0.72-1.25); POTASSIUM 3.5 mmol/L (3.5-5.1)
[2019-09-23] MEDS: ACETAMINOPHEN 325 MG TAB PO PRN ×2 (06:13→23:28)
[2019-09-23] MEDS: GABAPENTIN 100 MG CAP PO SCH (06:13)
[2019-09-23] MEDS: SODIUM CHLORIDE 0.9% 1000ML 1,000 ML IV SCH (06:13)
[2019-09-23 07:38] LABS: LYMPHOCYTES % (MANUAL) 11 % (19-48); MONOCYTES % (MANUAL) 5 % (3.4-9.0); NEUTROPHILS % (MANUAL) 84 % (40-74); PLATELET ESTIMATE SLIGHTLY INCREASED; PLATELET MORPHOLOGY COMMENT NORMAL; RBC MORPHOLOGY COMMENT NORMAL
[2019-09-23] MEDS: INSULIN LISPRO 100 UNIT/1 ML 3ML VIAL SQ SCH ×4 (08:13→20:31)
[2019-09-23] MEDS: SODIUM CHLORIDE 1 GM TAB PO SCH ×2 (08:13→17:00)
[2019-09-23] MEDS: FERROUS SULFATE 325 MG TAB PO SCH (08:13)
[2019-09-23] MEDS: SODIUM BICARBONATE 650 MG TAB PO SCH ×3 (08:13→20:29)
[2019-09-23] MEDS: PANTOPRAZOLE SOD 40 MG TABEC PO SCH (08:13)
[2019-09-23] MEDS: ASPIRIN 81 MG ENTERIC COATED PO SCH (08:13)
[2019-09-23] MEDS ORDERED: POTASSIUM CHLORIDE 20 MEQ TAB CR PO ONE (09:45)
[2019-09-23] MEDS ORDERED: FUROSEMIDE INJ 10 MG/ML 4 ML VIAL IV ONE (09:50)
--- NOTE | 2019-09-23 11:14 | Progress Note ---
DATE: SUBJECTIVE: The patient is seen and evaluated. Available labs and notes reviewed. The patient is seen with the nurse. REVIEW OF SYSTEMS: No nausea, vomiting, fever, chills, chest pain, or shortness of breath. Tolerates antibiotics. No complications with antibiotics. PHYSICAL EXAMINATION: VITAL SIGNS: Temperature is 98.2 with a max of 99.6, pulse is 63, respiration 20, and blood pressure 128/54. GENERAL: Alert and oriented, no acute distress. CV: S1 and S2. CHEST: Equal expansion. Clear to auscultation. ABDOMEN: Soft, obese, and nontender. HEENT: Moist. No JVD. EXTREMITIES: Right foot wound is macerated, some kind of necrotic tissue on the medial side at almost head of the 1st metatarsal on the medial side, also some ulceration on top of the foot between the 1st and 2nd toe. MEDICATION/ANTIBIOTICS: The patient is on Rocephin. LABORATORY STUDIES: White count of 16.3 up from 12.87, hemoglobin of 7.9 with a platelet count of 458. Sodium 134, potassium 3.5, and creatinine is 3.69. MICROBIOLOGY: Wound culture shows Serratia, which is intermediate to Rocephin. Blood culture was strep. RADIOLOGY: Foot x-ray shows soft tissue ulceration along the medial aspect of the 1st MTP joint without underlying acute osseous injury or specific radiographic evidence of osteomyelitis. ASSESSMENT AND PLAN: 1. Strep bacteremia. 2. Cellulitis of right foot. 3. Status post removal of the foreign body from the plantar aspect of the right foot. 4. Bxawa-hj-sqmikbm renal insufficiency. 5. Wound culture showed Serratia. 6. Macerated wound. 7. Remains on Rocephin. 8. Continue with the wound care. 9. Discussed with the nurse. Discussed with Dr. Colunga in details. Please refer to chart for more information. Dictated by Devin Zhang PA-C (Al) Lacey Colunga MD /MODL /[id number]
[2019-09-23] MEDS: CEFTRIAXONE SOD 1 GM/NS 50 ML 50 ML IV SCH ×2 (12:19→23:28)
[2019-09-23] MEDS: HYDRALAZINE HCL 20 MG/ML VIAL IV PRN ×2 (12:30→20:30)
[2019-09-23] MEDS: LINEZOLID 600 MG/D5W 300ML 300 ML IV SCH (15:34)
--- NOTE | 2019-09-23 16:34 | NUR ---
Nutrition Screen Note RD Recommendation for Physician: - Continue current diet per MD Plan of Care: RD following, monitoring for tolerance and adequacy Nutrition reason for involvement: LOS Primary Diagnose(s): R foot cellulitis PMH: DM2, CKD3, hypercholesterolemia Ht: 69 in Wt: 215 lb BMI: 31.7 kg/m2 IBW: [address] Assessment: (09/22) 69 YOM admitted for R foot cellulitis, seen today for LOS. 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 Pt denies any N/V/C/D. Pt reports UBW of 210#, no noted wt loss. Pt reports that he follows a low K, low Na diet at home and declined DM diet education. Pt with no questions or concerns at time of vist. Chart reviewed. Labs and meds reviewed. Will continue to monitor. Current Diet: 1800 ADA Malnutrition Evaluation (09/23/19) The patient does not meet criteria for a specified degree of malnutrition at this time. Will re-evaluate at follow-up as appropriate. Diet Education Needs Assessment: Diet education indicated, pt declined. Diet tolerance: tolerating po Nutrition Care Level: Signed: Rula Ness RD, LD, [facility]
[2019-09-23] MEDS: MUPIROCIN 2% OINT 22 GM TUBE TOP SCH (17:49)
--- NOTE | 2019-09-23 19:00 | NUR ---
RECEIVED PATIENT IN BEDSIDE SHIFT REPORT. PATIENT REPORTS VERY MILD HEADACHE 1/10 PAIN. NO S&S OF DISTRESS NOTED. BED LOCKED IN LOWEST POSITION, SIDE RAILS UPX2, CALL LIGHT IN REACH.
[2019-09-23] MEDS: PRAVASTATIN 20 MG TAB PO SCH (20:29)
[2019-09-23] MEDS: NPH, HUMAN INSULIN ISOPHANE 100 UNIT/1 ML 3ML VIAL SQ SCH ×2 (20:31→21:00)
[2019-09-23] MEDS ORDERED: NPH, HUMAN INSULIN ISOPHANE 100 UNIT/1 ML 3ML VIAL SQ SCH (21:00)
--- NOTE | 2019-09-23 21:46 | Progress Note ---
DATE: 09/23/2019 SUBJECTIVE: The patient is sitting in a chair at the bedside. He is eating well. He has no complaints of pain at present. His last bowel movement was this morning. Otherwise, he has no complaints. OBJECTIVE: VITAL SIGNS: Temperature 99.6, which is also T-max. Pulse 67, blood pressure 154/67, subsequent blood pressure 128/54, respirations 20, oxygen saturation 93% on room air. GENERAL: Awake, alert. LUNGS: Clear to auscultation. HEENT: EOMI. NECK: Supple. CARDIOVASCULAR: Regular rate and rhythm. No murmur. Normal saline infusing at 50 mL an hour into a peripheral IV. ABDOMEN: Bowel sounds positive. Soft, nontender. No guarding. EXTREMITIES: Right foot wrapped with Kerlix dressing. Trace edema of the legs. No sign of DVT. NEUROLOGICAL: GCS 15. Nonfocal. MEDICATIONS: Reviewed. LABORATORY DATA: WBC 16.31, hemoglobin 7.9, hematocrit 23.1, platelets 458. Sodium 134, potassium 3.5, chloride 101, CO2 of 22, BUN 74, creatinine 3.69, estimated GFR 16, glucose 117. Fingerstick blood glucose levels 141, 248, 309. Calcium 8.4, total bilirubin 0.1, AST 16, ALT 14, alkaline phosphatase 84, total protein 6.4, albumin 2.1. No new imaging studies. ASSESSMENT AND PLAN: 1. Right foot cellulitis, status post I and D with metal foreign body removal. Continue Rocephin and Zyvox IV antibiotics per Infectious Disease. Wound culture and sensitivity positive for Serratia marcescens. Pain control. Worsening leukocytosis and thrombocytosis noted. Case discussed with Dr. Phipps with Podiatry. We will continue IV antibiotics and await WBC to drop below 10. 2. Uncontrolled type 1 diabetes mellitus. FSBG levels today range from 141-309. We will increase the NPH insulin from 25 units to 35 units at bedtime. 3. Controlled hypertension. Continue hydralazine. 4. DAVON on CKD 4/5, estimated GFR 16. Nephrology follows. 5. Severe acute hyponatremia, improving. Sodium level 134 (129). Continue sodium tabs, sodium bicarbonate. 6. Iron deficiency anemia. Continue oral ferrous sulfate. 7. Obesity with BMI of 31.74. Dietary restrictions. 8. Prophylaxis. Protonix. Time spent 35 minutes. Billing code [id number]. Dictated by Heber Hobson, PLANNING FEEDER MD ALTAGRACIA Kyle/ADRIEL /[id number]
[2019-09-24] VITALS (8 sets, daily range): BP systolic 131–164; BP diastolic 52–67
[2019-09-24] MEDS: LINEZOLID 600 MG/D5W 300ML 300 ML IV SCH ×2 (01:55→13:00)
[2019-09-24 05:09] LABS: BASOPHILS # (AUTO) 0.1 (0.0-0.1); BASOPHILS % 0.5 % (0.0-1.0); EOSINOPHILS # (AUTO) 0.2 (0.0-0.4); EOSINOPHILS % 1.2 % (0.0-6.0); HEMATOCRIT 23.5 % (38.2-49.6); LYMPHOCYTES # (AUTO) 2.5 (1.0-3.2); LYMPHOCYTES % 16.2 % (18.0-39.1); MEAN CORPUSCULAR HEMOGLOBIN 29.9 pg (28-32); MEAN CORPUSCULAR VOLUME 87.7 fL (81-99); MONOCYTES # (AUTO) 1.1 (0.2-0.8); MONOCYTES % 7.4 % (4.4-11.3); NEUTROPHILS # (AUTO) 10.8 (2.1-6.9); NEUTROPHILS % 70.9 % (38.7-80.0); PLATELET COUNT 494 x10e3/uL (140-360); RED BLOOD COUNT 2.68 x10e6/uL (4.3-5.7); RED CELL DISTRIBUTION WIDTH 11.9 % (11.7-14.4)
[2019-09-24] MEDS: SODIUM CHLORIDE 0.9% 1000ML 1,000 ML IV SCH (05:23)
[2019-09-24 05:38] LABS: ALBUMIN 2.2 g/dL (3.5-5.0); ALBUMIN/GLOBULIN RATIO 0.5 (0.8-2.0); ANION GAP 15.1 mmol/L (8-16); CALCIUM 8.3 mg/dL (8.4-10.2); CREATININE, SERUM 3.22 mg/dL (0.72-1.25); POTASSIUM 4.1 mmol/L (3.5-5.1)
[2019-09-24 05:57] LABS: MAGNESIUM 1.8 MG/DL (1.3-2.1); PHOSPHORUS 3.8 MG/DL (2.3-4.7)
--- NOTE | 2019-09-24 06:20 | NUR ---
PATIENT PREVIOUSLY REQUESTED DRESSING CHANGE BE DONE AROUND 0530 TO 0600. PATIENT SLEEPING HEAVILY. WOKE PATIENT UP FOR DRESSING CHANGE AT THIS TIME, PATIENT STATED "I NEED TO SLEEP SOME MORE," AND WENT BACK TO SLEEP. UNABLE TO PERFORM DRESSING CHANGE AT THIS TIME.
--- NOTE | 2019-09-24 07:00 | NUR ---
BEDSIDE SHIFT REPORT RECEIVED FROM THE BATH MIXER RN. EDUCATED PT ABOUT FALL PRECAUTIONS. PT VERBALIZED UNDERSTANDING. CALL LIGHT WITH IN EASY REACH. INSTRUCTED PT TO USE CALL LIGHT FOR ALL THE NEEDS. BED IS LOW AND LOCKED. SIDE RAILS X2.PT DENIES NEEDS AT THIS TIME.
[2019-09-24] MEDS: MUPIROCIN 2% OINT 22 GM TUBE TOP SCH (08:00)
[2019-09-24] MEDS: PANTOPRAZOLE SOD 40 MG TABEC PO SCH (08:00)
[2019-09-24] MEDS: INSULIN LISPRO 100 UNIT/1 ML 3ML VIAL SQ SCH ×4 (08:30→21:03)
--- NOTE | 2019-09-24 09:38 | Progress Note ---
DATE: SUBJECTIVE: The patient is seen and evaluated. Available labs and notes reviewed. Discussed with the patient. REVIEW OF SYSTEMS: No nausea, vomiting, fever, chills, chest pain, shortness of breath. No headache, dysuria, or polyuria. Pain is controlled. PHYSICAL EXAMINATION: VITAL SIGNS: Temperature 97.9, pulse 60, respirations 20, and blood pressure 148/59. GENERAL: Alert and oriented, no acute distress. CV: S1-S2. CHEST: Equal expansion, clear to auscultation. No acute distress. ABDOMEN: Soft, nontender. No distention. HEENT: Moist. No pallor. No JVD. EXTREMITIES: Right foot cellulitis/wound dressed on local care. MEDICATIONS: Antibiotics: The patient is on Zyvox and Rocephin. Zyvox started on 09/23/2019 and Rocephin started on 09/21/2019. LABORATORY STUDIES: White count 15.23, improved from 16.31, hemoglobin 8, platelets 494. Sodium 135, potassium 4.1, and creatinine 3.22. MICROBIOLOGY: No new microbiology studies available. Wound culture showed Serratia and blood culture was strep. IMAGING: No new Radiology studies available. ASSESSMENT AND PLAN: 1. Bacteremia with strep. 2. Cellulitis of right foot. 3. Right foot wound with some necrotic tissue. I will discuss with the patient and apparently had a debridement yesterday by Podiatry with the removal of the tissues. The patient recently had a foreign body removed from his plantar surface of the foot. 4. Diabetes, uncontrolled. 5. Acute on chronic renal insufficiency. 6. Cultures as mentioned above. 7. Rocephin since 09/21/2019, started Zyvox yesterday. 8. Leukocytosis, improved. We will continue to monitor. 9. Wound care. 10. PT/OT. 11. Follow up with the cultures. 12. X-ray of the foot pending from today. Follow with ESR and CBC for tomorrow. 13. Discussed with Dr. Colunga in details. 14. Further management of this patient is based on daily findings on laboratory and physical examination. Discussed with Dr. Colunga. Please refer to chart for more information. Dictated by Devin Zhang PA-C (Al) MD JOSE Alvarez/ADRIEL /[id number]
[2019-09-24] MEDS: FERROUS SULFATE 325 MG TAB PO SCH (09:39)
[2019-09-24] MEDS: SODIUM CHLORIDE 1 GM TAB PO SCH (09:39)
[2019-09-24] MEDS: SODIUM BICARBONATE 650 MG TAB PO SCH (09:39)
[2019-09-24] MEDS: ASPIRIN 81 MG ENTERIC COATED PO SCH (09:39)
[2019-09-24] MEDS ORDERED: DEXTROSE 5%/0.45% SOD CHL 1,000 ML IV ONE (10:30)
[2019-09-24] MEDS: CEFTRIAXONE SOD 1 GM/NS 50 ML 50 ML IV SCH (12:11)
--- NOTE | 2019-09-24 12:31 | Diagnostic Imaging Report ---
EXAMINATION: FOOT RIGHT COMPLETE INDICATION: Foot infection COMPARISON: Right foot radiographs of 09/22/2019 FINDINGS: Again seen is soft tissue ulceration along the medial aspect of the forefoot at the level of the first MTP joint. Overlying gauze material obscures fine detail. No acute osseous injury or specific radiographic evidence of osteomyelitis. Alignment remains anatomic. IMPRESSION: No significant interval change. Signed by: Hector Chan MD on 09/24/2019 12:27 PM
--- NOTE | 2019-09-24 14:29 | Consultation ---
DATE OF CONSULTATION: 09/24/2019 SUBJECTIVE: The patient at bedside, is denying history of fever, chills, nausea, or vomiting. Did peak at 99.5 last night and currently at 98.3. OBJECTIVE: VITAL SIGNS: Pulse rate 64, respirations 17, blood pressure 149/67, and O2 saturations 96%. LABS: Noted as a white blood cell count of 15.2 as of today. Still very swollen right lower extremity. No drainage. Negative foul smell with open lesions/ulcers to the plantar aspect of the right foot, dorsal aspect right foot, and medial aspect. All surrounding the first metatarsophalangeal joint of the right lower extremity. The amount of cellulitis to the mid foot has decreased. ASSESSMENT: Cellulitis with possible osteomyelitis, right foot with diabetic neuropathy. PLAN: We will continue IV antibiotics. Continue local wound care. X-rays, three views right foot will be reordered. We will continue to follow. YANI Pedraza/ADRIEL /[id number]
[2019-09-24] MEDS: ACETAMINOPHEN 325 MG TAB PO PRN (17:45)
[2019-09-24] MEDS: HYDRALAZINE HCL 20 MG/ML VIAL IV PRN (18:41)
--- NOTE | 2019-09-24 19:05 | NUR ---
BEDSIDE SHIFT REPORT GIVEN TO THE COUNTY COURT JUDGE RN. PT DENIED FURTHER NEEDS.
--- NOTE | 2019-09-24 19:10 | NUR ---
BEDSIDE SHIFT REPORT GIVEN TO THE PRISON WARDEN RN. PT DENIED FURTHER NEEDS.
[2019-09-24] MEDS: PRAVASTATIN 20 MG TAB PO SCH (21:03)
[2019-09-24] MEDS: NPH, HUMAN INSULIN ISOPHANE 100 UNIT/1 ML 3ML VIAL SQ SCH (21:03)
[2019-09-25] MEDS: CEFTRIAXONE SOD 1 GM/NS 50 ML 50 ML IV SCH ×2 (00:09→11:42)
[2019-09-25] MEDS: LINEZOLID 600 MG/D5W 300ML 300 ML IV SCH ×2 (01:12→12:30)
[2019-09-25] MEDS: ACETAMINOPHEN 325 MG TAB PO PRN ×3 (01:12→14:25)
--- NOTE | 2019-09-25 01:51 | Progress Note ---
DATE: 09/24/2019 SUBJECTIVE: The patient is lying on his right side in bed, is asleep, is easily arousable. Encounter at 2330 hours on 09/24/2019. No complaints of pain or chills. He had a bowel movement today. OBJECTIVE: VITAL SIGNS: Temperature 97.9, pulse 60, blood pressure 148/59, respirations 20, oxygen saturation 99%. GENERAL: Asleep. Easily arousable. LUNGS: Clear to auscultation. HEENT: EOMI. NECK: Supple. CARDIOVASCULAR: Regular rate and rhythm. No murmur. D5 in half-normal saline and infusing at 100 mL an hour into a peripheral IV. ABDOMEN: Bowel sounds positive. Soft. No guarding. Nontender. EXTREMITIES: Right foot wrapped with Kerlix dressing with Servando wrap on top. Trace edema of the legs. No sign of DVT. NEUROLOGICAL: GCS 15. Nonfocal. MEDICATIONS: Reviewed. LABORATORY DATA: Sodium 135, potassium 4.1, chloride 101, CO2 23, BUN 60, creatinine 3.22, glucose 195. WBC 15.2, hemoglobin 8, hematocrit 23.5, platelets 494, AST 20, total bilirubin 0.1, ALT 15, alkaline phosphatase 90. C-reactive protein pending. Fingerstick blood glucose levels 190, 274, and 261. Phosphorus 3.8, magnesium 1.8, calcium 8.3. IMAGING STUDIES: Right foot complete x-ray shows no interval change. Soft tissue ulceration along the medial aspect of the forefoot at the level of the 1st MTP joint. No acute osseous injury or specific radiographic evidence of osteomyelitis. ASSESSMENT AND PLAN: 1. Right foot cellulitis, status post incision and drainage with metal foreign body removal by Dr. Phipps with Podiatry. Continue IV Rocephin and Zyvox per Infectious Disease. Wound culture and sensitivity positive for Serratia marcescens. Continue pain control p.r.n. Monitor WBCs. Goal is for white blood cell count less than 10. 2. Uncontrolled type 1 diabetes mellitus. Fingerstick blood glucose levels today 190, 274, and 261. Continue NPH insulin 35 units at bedtime as well as sliding scale insulin. 3. Controlled hypertension. Continue hydralazine. 4. Acute kidney injury on chronic kidney disease 4/5, estimated GFR 19. Nephrology following. Renal function improving. 5. Severe acute hyponatremia, improving. Sodium level 135 (134). Continue sodium tabs and sodium bicarbonate. 6. Iron deficiency anemia. Continue oral ferrous sulfate. 7. Obesity with BMI of 31.74. Dietary restrictions. 8. Prophylaxis. Protonix. Time spent 35 minutes. Billing code [id number]. Dictated by Heber Hobson, TORI MD ROGER KyleP/MODL /[id number]
[2019-09-25 04:25] VITALS: BP 145/55
[2019-09-25 06:31] LABS: BASOPHILS # (AUTO) 0.1 (0.0-0.1); BASOPHILS % 0.6 % (0.0-1.0); EOSINOPHILS # (AUTO) 0.3 (0.0-0.4); EOSINOPHILS % 2.3 % (0.0-6.0); HEMATOCRIT 22.8 % (38.2-49.6); HEMOGLOBIN 7.5 g/dL (14.0-18.0); LYMPHOCYTES # (AUTO) 2.5 (1.0-3.2); LYMPHOCYTES % 20.7 % (18.0-39.1); MEAN CORPUSCULAR HEMOGLOBIN 28.7 pg (28-32); MEAN CORPUSCULAR HGB CONC 32.9 g/dL (31-35); MEAN CORPUSCULAR VOLUME 87.4 fL (81-99); MONOCYTES # (AUTO) 0.9 (0.2-0.8); MONOCYTES % 7.2 % (4.4-11.3); NEUTROPHILS # (AUTO) 7.9 (2.1-6.9); NEUTROPHILS % 65.8 % (38.7-80.0); PLATELET COUNT 595 x10e3/uL (140-360); RED BLOOD COUNT 2.61 x10e6/uL (4.3-5.7); RED CELL DISTRIBUTION WIDTH 11.9 % (11.7-14.4)
[2019-09-25 06:59] LABS: ANION GAP 15.2 mmol/L (8-16); CALCIUM 7.9 mg/dL (8.4-10.2); CREATININE, SERUM 2.67 mg/dL (0.72-1.25); POTASSIUM 4.2 mmol/L (3.5-5.1)
--- NOTE | 2019-09-25 07:00 | NUR ---
BEDSIDE SHIFT REPORT RECEIVED FROM THE COMPUTATIONAL CHEMIST RN. EDUCATED PT ABOUT FALL PRECAUTIONS. PT VERBALIZED UNDERSTANDING. CALL LIGHT WITH IN EASY REACH. INSTRUCTED PT TO USE CALL LIGHT FOR ALL THE NEEDS. BED IS LOW AND LOCKED. SIDE RAILS X2. PT DENIES NEEDS AT THIS TIME.
[2019-09-25 08:03] VITALS: BP 147/68
[2019-09-25 08:06] LABS: ERYTHROCYTE SEDIMENTATION RATE 123 mm/hr (0-13)
[2019-09-25 08:17] VITALS: BP 147/68
[2019-09-25] MEDS: PANTOPRAZOLE SOD 40 MG TABEC PO SCH (08:30)
[2019-09-25] MEDS: INSULIN LISPRO 100 UNIT/1 ML 3ML VIAL SQ SCH ×3 (08:30→17:48)
[2019-09-25] MEDS ORDERED: SODIUM BICARBONATE 650 MG TAB PO SCH (09:00)
[2019-09-25] MEDS ORDERED: SODIUM CHLORIDE 1 GM TAB PO SCH (09:00)
[2019-09-25] MEDS: ASPIRIN 81 MG ENTERIC COATED PO SCH (09:30)
[2019-09-25] MEDS: FERROUS SULFATE 325 MG TAB PO SCH (09:30)
--- NOTE | 2019-09-25 10:00 | NUR ---
KOKO ZHOU NP AND REPORTED HGB VALUE 7.5 .
[2019-09-25 11:39] VITALS: BP 130/64
[2019-09-25] MEDS: HYDRALAZINE HCL 20 MG/ML VIAL IV PRN (11:41)
[2019-09-25] MEDS: MUPIROCIN 2% OINT 22 GM TUBE TOP SCH (11:42)
[2019-09-25] MEDS ORDERED: CIPRO500 MG PO (11:53)
[2019-09-25] MEDS ORDERED: ZYVOX600 MG PO (11:53)
[2019-09-25] MEDS ORDERED: ASPIRIN EC81 MG PO (11:54)
[2019-09-25] MEDS ORDERED: MUPIROCIN22 GM TOP (11:54)
[2019-09-25] MEDS ORDERED: TYLENOL WITH C1 EACH PO (11:55)
[2019-09-25] MEDS ORDERED: NORVASC10 MG PO (11:59)
[2019-09-25 16:35] VITALS: BP 156/60
--- NOTE | 2019-09-26 02:15 | Discharge Summary ---
ADMISSION DIAGNOSES: 1. Right great toe cellulitis. 2. Type 1 diabetes. 3. Hypertension. 4. Hyperlipidemia. 5. Peripheral neuropathy. 6. Obesity with a BMI of 31.7. DISCHARGE DIAGNOSES: 1. Right great toe cellulitis. 2. Type 1 diabetes. 3. Hypertension. 4. Hyperlipidemia. 5. Peripheral neuropathy. 6. Obesity with a BMI of 31.7. 7. Chronic kidney disease 3 with acute kidney injury. 8. Serratia of the wound, present on admission. 9. Streptococcus viridans bacteremia, present on admission. HISTORY: Type 1 diabetes, hypertension, peripheral neuropathy, GERD. SURGICAL HISTORY: Hemorrhoidectomy. FAMILY HISTORY: The patient's brother had cancer. The patient's aunt and grandmother had diabetes. SOCIAL HISTORY: Noncontributory. HOSPITAL COURSE: A 69-year-old male, admits with complaints of right foot swelling and pain that he noticed yesterday. He has had a fever for 3 days. On admission, the right foot x-ray showed findings suggestive of retained metallic density foreign body in the ball of the great toe with associated soft tissue infection and wound cultures were taken, which came back positive for Serratia. Infectious Disease and Podiatry were both consulted. The patient had an I and D at bedside per Podiatry. Blood culture came back positive for Streptococcus viridans, which was present on admission. Initially, the patient's renal labs were indicative of his CKD-3 , but they continue to trend down, so Nephrology was consulted and antibiotics were stopped. Renal ultrasound showed unremarkable sonographic appearance of the kidney. After avoiding nephrotoxic medications, the patient's kidney function improved. Per I and D, the patient was started on Bactroban followed by a diluted wet-to-dry Betadine dressing. Per Infectious Disease, the patient can be discharged home with Cipro and Zyvox. Discharge was cleared with Nephrology and Podiatry as well. He was given a new prescription for Tylenol 3, Norvasc, aspirin, Cipro, Zyvox, and Bactroban. The patient will follow up with primary care in 1 to 2 weeks and Nephrology in 1 week and Podiatry in 1 week. The patient understands instructions and agrees to plan. Dictated by Quynh Marx, TORI MD LATONIA Kyle/ALESIAL /[id number]
== END 2019-09-25 17:37 | disposition home or self-care (01) | DRG 504 ==
LOC: ER 12:47 → ERHOLD 15:25 → MED/SURG2 18:35
PROVIDERS: ADMIT Internal Medicine; ATTEND Internal Medicine
PROC: 0SC Lower Joints, Extirpation (ICD-10-PCS; principal; 2019-09-18)
DX: M79.5 Residual foreign body in soft tissue (principal); L03.115 Cellulitis of right lower limb; N18.4 Chronic kidney disease, stage 4 (severe); N17.9 Acute kidney failure, unspecified; E87.2 Acidosis; E87.1 Hypo-osmolality and hyponatremia; Z18.10 Retained metal fragments, unspecified; Z79.4 Long term (current) use of insulin; E78.5 Hyperlipidemia, unspecified; E66.9 Obesity, unspecified; Z68.31 Body mass index [BMI] 31.0-31.9, adult; B95.4 Other streptococcus as the cause of diseases classified elsewhere; B96.89 Other specified bacterial agents as the cause of diseases classified elsewhere; E10.22 Type 1 diabetes mellitus with diabetic chronic kidney disease; I12.9 Hypertensive chronic kidney disease with stage 1 through stage 4 chronic kidney disease, or unspecified chronic kidney disease; E10.42 Type 1 diabetes mellitus with diabetic polyneuropathy; D47.3 Essential (hemorrhagic) thrombocythemia; E10.621 Type 1 diabetes mellitus with foot ulcer; L97.514 Non-pressure chronic ulcer of other part of right foot with necrosis of bone; M54.9 Dorsalgia, unspecified; G89.29 Other chronic pain; D64.9 Anemia, unspecified; D50.9 Iron deficiency anemia, unspecified
CPT/HCPCS: 36415; 76770; 80048; 80053; 80202; 81001; 82570; 82728; 82948; 83036; 83540; 83605; 83735; 84100; 84145; 84156; 84300; 84466; 85025; 85651; 86140; 87040; 87071; 87186; 87205; 96372; 97139; 99284; J0360; J0696; J1940; J2001; J2020; J2270; J2405; J2543; J3370; J7030; J7050